=== PATIENT | female | born 1960 | race Caucasian/White ===

== ENCOUNTER → 2017-09-30 10:49 | Outpatient (CLI) | payer OTHER, SELFPAY ==
[2017-09-30 12:55] LABS: T4 Free Direct 1.33 ng/dL (0.76-1.46); Thyroid Stim Hormone (TSH) 0.37 uIU/mL (0.358-3.74)
== END ==
PROVIDERS: Family Provider Family Medicine; PCP Family Medicine
DX: E89.0 Postprocedural hypothyroidism (principal)
CPT/HCPCS: 36415; 84439; 84443

== ENCOUNTER 2017-10-01 13:30 | Outpatient (RCR) | payer OTHER, SELFPAY ==
--- NOTE | 2017-09-01 09:25 | HP.PTEVAL ---
Patient's Visit Information BOLIVAR ESCUDERO is a 57 year old F referred to Physical Therapy by DO SADIA Steen with a diagnosis of Right UKA. Date of Evaluation: 09/01/17 Physical Therapist: Catie Huerta - Visit Plan Frequency: 2x /Week Duration: 2 Weeks Plan: Manual, stretching and dry needling - Subjective Subjective: Right UKA at end of March- pain behind the knee- complained since surgery. Started to catch behind the knee- positional pain. Feels like its getting harder to uncatch and its remaining painful longer. Not exactly sure what the problem is. Some days are worse than others. Feels like something is under tension and then it snaps (you can hear it). So Dr. العراقي wants to her attempt dry needling and massage therapy. Her daughter worked on her hamstring and Gastroc/Soleus- it felt better for a little bit but came right back. Did heavy massage therapy for about 4 weeks and it felt great for a little bit but it came back. Agg: being up on it. Feels thick, inflammed and tired. Worst: 01/17 Best: 09/19 Eases: nothing. Is having a CT Scan on - thinks maybe the tray is to long. Is thinking possible revision. Sleep: not disturbed. PMHx: DM, PVC's, Menieres, Moderate Heart Disease. Meds: thyroid, tricor, cholesterol, Maxide, water pill, Toporol, XL, levamere - Objective Posture: FH, RS. Gait: no deviation noted. Stairs: asc/desc 8 recip but reports catching. HR/TR: WNL. Balance: 30 sec without LOB. Palpation: tender along hamstrings medial side, gastroc and solues. ROM: 0-125 degrees. Strength: Hip: 4/5, Knee: 5/5, Ankle: 5/5. Flexibility: Gastroc: mod, Soleus: mod, Hamstring: mod - Goals Goal 1:: Patient will be I with HEP and progression Goal Time Frame: 4-6 Weeks Goal 2:: Patient will demo slight restriction in hamstring/gastroc/soleus Goal Time Frame: 4-6 Weeks Goal 3:: Patient will report no catching of the knee for 1 week Goal Time Frame: 4-6 Weeks - Rehabilitation Potential Physical Therapy Diagnosis: patient presents with hypomobility- she has decreased strength and flexibility leading to increased pain with ADL's Rehabilitation Potential: Fair - Anticipated Interventions Patient/Client Instruction: Educate patient on: Benefits of Fitness Program For the Purpose of:: To increase tolerance to activity/condition/position Therapeutic Exercise to Include: Strength training, Flexibilty training, Passive ROM, Active ROM, Dynamic Lumbar Stabilization For the Purpose of:: To improve muscle performance and motor function Manual Therapy Techniques to Include: Functional dry needling, Soft tissue mobilization For the Purpose of:: To improve nutrient delivery to tissue Thank you for the opportunity to evaluate your patient. For Medicare and Medicare HMO plans, please review the plan of care and approve it. It will need to be FAXED BACK to us at [phone] for Medicare purposes. Please let me know if there are questions or concerns regarding this plan of care. Physician Signature: Date:
--- NOTE | 2018-03-08 13:16 | HP.PT.NRP ---
HP - Discharge Summary (1) - Patient Information BOLIVAR ESCUDERO was seen in my office for initial evaluation on 09/01/17. The following Plan of Care was established for this patient: Initial Frequency: 2x /Week Initial Duration: 2 Weeks - Anticipated Interventions Patient/Client Instruction: Educate patient on: Benefits of Fitness Program For the Purpose of:: To increase tolerance to activity/condition/position Therapeutic Exercise to Include: Strength training, Flexibilty training, Passive ROM, Active ROM, Dynamic Lumbar Stabilization For the Purpose of:: To improve muscle performance and motor function Manual Therapy Techniques to Include: Functional dry needling, Soft tissue mobilization For the Purpose of:: To improve nutrient delivery to tissue This patient was last seen in our office . Pertinent comments regarding their Physical therapy will appear below: Patient has not attended physical therapy in over 30 days and is appropriate for d/c- return to MD as needed. At this point I will be discontinuing this patient from physical therapy. I would be happy to see this patient again in the future if found appropriate by the physician. Thank you! Catie Huerta
== END 2017-10-01 19:00 | disposition home or self-care (01) ==
LOC: PT 13:30
PROVIDERS: Family Provider Family Medicine; PCP Family Medicine; Visit Provider Orthopaedic Surgery
DX: Z98.890 Other specified postprocedural states (principal)
CPT/HCPCS: 97140; 97161

== ENCOUNTER → 2017-11-06 14:06 | Outpatient (CLI) | payer OTHER, SELFPAY ==
[2017-11-06 16:17] LABS: AST(SGOT) 33 U/L (15-37); Alanine Aminotransfer ALT/SGPT 59 U/L (13-56); Albumin, Serum 3.7 g/dL (3.2-5.0); Alkaline Phosphatase 68 U/L (45-117); Globulin 3.6 g/dL (2.2-4.2); Lipase 550 U/L (73-393); Protein, Total 7.3 g/dL (6.4-8.2)
== END ==
PROVIDERS: Family Provider Family Medicine; PCP Family Medicine; Visit Provider Internal Medicine Gastroenterology
DX: K85.90 Acute pancreatitis without necrosis or infection, unspecified (principal)
CPT/HCPCS: 36415; 80076; 83690

== ENCOUNTER → 2017-11-13 17:42 | Outpatient (CLI) | payer OTHER, SELFPAY ==
[2017-11-13 13:20] LABS: AST(SGOT) 130 U/L (15-37); Alanine Aminotransfer ALT/SGPT 176 U/L (13-56); Albumin, Serum 3.7 g/dL (3.2-5.0); Alkaline Phosphatase 72 U/L (45-117); Bilirubin, Direct 0.18 mg/dL (0.00-0.30); Globulin 3.7 g/dL (2.2-4.2); Lipase 223 U/L (73-393); Protein, Total 7.4 g/dL (6.4-8.2)
--- NOTE | 2017-11-13 17:45 | CT_ITS ---
STUDY: CT ABDOMEN AND PELVIS WITH CONTRAST REASON FOR EXAM: Female, 57 years old. Pancreatitis RADIATION DOSAGE (If Supplied By Facility): CTDIvol = ( 15.44 ) mGy, DLP = ( 1154.32 ) mGycm TECHNIQUE: Transaxial images were obtained from the dome of the diaphragm to the symphysis pubis without oral contrast. 100 ml of Isovue 300 contrast was administered. Sagittal and coronal images were reconstructed. Individualized dose optimization techniques were used for this CT. COMPARISON: None. FINDINGS: The visualized lung bases are clear. The visualized portions of the heart and pericardium are within normal limits. The patient is status post cholecystectomy. The liver is within normal limits. There are no suspicious hepatic lesions. The spleen is enlarged, measuring 14.3 cm in maximal dimension. The pancreas is within normal limits. There is no peripancreatic fluid or fluid collection. The adrenal glands are within normal limits. There are no obstructing renal stones. There is no hydronephrosis. There are no focal renal lesions. Normal visualized stomach. There is no bowel obstruction or inflammation. There is a large mount of stool in the colon, consistent with constipation. The appendix is visualized and appears normal. The aorta is normal in caliber. There is no abdominal or pelvic free air, free fluid, fluid collection or lymphadenopathy. There are no destructive osseous lesions. CT/Abdomen/Pelvis WITH Contrast IMPRESSION: Splenomegaly. Normal appearance of the pancreas. No peripancreatic fluid or fluid collection. If concern for pancreatitis persists, correlation with laboratory lipase value is recommended. No bowel obstruction or inflammation. Normal appendix. Constipation. Electronically Signed: Niko Vinson, at 22:03 EDT Tel , Service support ,
== END ==
PROVIDERS: Family Provider Family Medicine; PCP Family Medicine; Visit Provider Internal Medicine Gastroenterology
DX: K85.90 Acute pancreatitis without necrosis or infection, unspecified (principal)
CPT/HCPCS: 36415; 74177; 80076; 83690; Q9967

== ENCOUNTER → 2017-12-24 14:48 | Outpatient (CLI) | payer OTHER, SELFPAY ==
[2017-12-24 16:28] LABS: AST(SGOT) 35 U/L (15-37); Alanine Aminotransfer ALT/SGPT 53 U/L (13-56); Albumin, Serum 4.1 g/dL (3.2-5.0); Alkaline Phosphatase 76 U/L (45-117); Bilirubin, Direct 0.12 mg/dL (0.00-0.30); Globulin 3.6 g/dL (2.2-4.2); Protein, Total 7.7 g/dL (6.4-8.2); Thyroid Stim Hormone (TSH) 0.33 uIU/mL (0.358-3.74)
== END ==
PROVIDERS: Family Provider Family Medicine; PCP Family Medicine; Visit Provider Family Medicine
DX: E03.9 Hypothyroidism, unspecified (principal); K86.1 Other chronic pancreatitis
CPT/HCPCS: 36415; 80076; 84436; 84443

== ENCOUNTER → 2018-02-25 09:05 | Outpatient (CLI) | payer OTHER, SELFPAY ==
[2018-02-25 10:30] LABS: Hemoglobin A1c 6.7 % (4.2-6.3)
[2018-02-25 10:40] LABS: T4 Free Direct 1.15 ng/dL (0.76-1.46); Thyroid Stim Hormone (TSH) 1.56 uIU/mL (0.358-3.74)
== END ==
PROVIDERS: Family Provider Family Medicine; PCP Family Medicine
DX: E11.9 Type 2 diabetes mellitus without complications (principal); E89.0 Postprocedural hypothyroidism
CPT/HCPCS: 36415; 83036; 84439; 84443

== ENCOUNTER 2018-04-03 15:28 | Emergency (ER) | payer OTHER, SELFPAY ==
[2018-04-03 15:29] VITALS: BP 143/78; PULSE 80; RESP 16; TEMP 36.8; O2SAT 98; BMI 28.1
--- NOTE | 2018-04-03 15:51 | ED.VISSUMM ---
- ER Visit Summary Date of Service: 04/03/18 Chief Complaint: Right leg cellulitis History of Present Illness: The patient is a 58 F increased redness right leg over 2 days. Status post revision of total right knee arthroplasty by Dr. Quiñonez in [place] 9 days ago. There is no redness at the incision or drainage. Patient admits to shaving her leg the day prior. states she felt some pain anteriorly before the redness. No calf pain. She is on anticoagulants of fondaparinux daily for DVT prophylaxis. Denies fever. She is a diabetic. She is also on Keflex postsurgery 4 times daily however stopped it the day prior due to side effects of nausea. Concerns of cellulitis today. Physical Examination: General: Alert and oriented ?3, no acute distress HEENT: Normocephalic, atraumatic. Moist mucosa membranes Neck: supple, nontender. Cardiovascular: Regular rate and rhythm, no murmurs Respiratory: Normal breath sounds, symmetric, no distress Abdomen: Soft, nontender, nondistended Extremities: Nontender, no edema, pulses intact ?4. Right knee: Incision clean, dry, intact with Dermabond on top. Neuro: no focal neurological deficits. Skin: 6 x 2 cm erythema anterior mid tibia, no induration or drainage. No tracking near the incision of the right knee. Test Results: [] Emergency Department Course and Treatment: Patient nontoxic, well-appearing. Exam concerns for early cellulitis the mid tibia. There is no surgical involvement. Patient's intolerance to antibiotics history, discussed will use doxycycline twice daily for coverage. She does have Zofran and Phenergan at home to use as needed. Erythema was outlined, signs and symptoms discussed return. All questions were answered. Treatment Plan: [] Disposition: Discharge Impression: Right leg cellulitis This note was generated with Dw[employer] dictation software. It may contain incorrect words, spelling, and punctuation that were not noted in review of the chart prior to signing ED Disposition - Plan for ED Patient: Disposition: Home or Assisted Living Chief Complaint: Lower Extremity Injury Diagnosis: Cellulitis of right lower leg Instructions: ED Infec Skin Cellulitis Prescriptions: Doxycycline Monohydrate 100 mg PO BID #20 capsule Referrals: Rohit Lawson MD [Primary Care Provider] - 3-5 Days
[2018-04-03] MEDS: Doxycycline 100 MG CAPSULE PO (15:55)
--- NOTE | 2018-04-03 16:10 | ED.RN ---
per MD informed pt to not take Keflex and to stop shaving legs.
== END 2018-04-03 16:13 | disposition home or self-care (01) ==
PROVIDERS: Emergency Provider Emergency Medicine; Family Provider Family Medicine; PCP Family Medicine
DX: L03.115 Cellulitis of right lower limb (principal); Z96.651 Presence of right artificial knee joint
CPT/HCPCS: 99283

== ENCOUNTER 2018-04-28 10:00 | Outpatient (RCR) | payer OTHER, SELFPAY ==
--- NOTE | 2018-03-30 11:06 | HP.PTEVAL_ITS ---
Patient's Visit Information BOLIVAR ESCUDERO is a 58 year old F referred to Physical Therapy by RODERICK RUSH with a diagnosis of R S/P knee revison arthroplasty. Date of Evaluation: 03/30/18 Physical Therapist: Amelia Doe - Visit Plan Frequency: 3x /Week Duration: 4 Weeks Plan: 3X/ week for 4 weeks for R knee AROM, PROM, gait training - Subjective Subjective: Mar 31, 2017 R partial Tkr and Auf 2017 was a revision to a total. She is walking with a can now for a couple of days. She walks at home without a cane a lot. By the end of the day she uses the walker around the house. She has stairs at home and goes down with bad and up with the good and has a railing. She is not having trouble up and down from chairs. She is not allowed to Drive until done with pain meds. She has not a whole lot of pain. She takes the oxy as needed and not taking it around the clock. She reports that something is making her sick to her stomach and so she stopped taking a lot of the meds. - Pain R knee pain Pain Intensity (Out of 10): 3 Pain Intensity Range: 4 Comment: up walking around - Objective Gait: walking into dept with straight cane with cane in the R hand....Worked on her to get can in the L hand so she is able to have less pressure on the R and more even gait pattern. R knee AROM: -1 degree from full extension to 101 degrees knee flexion. L knee AROM: -1 degree from full extension to 140 degrees knee flexion. R knee MMT: Able to SLR but fatigues by 7/10 and knee is bent. L Knee MMT: WFL. Stairs up and down recip with 2 hand rails with some hesitency descending stairs. Palpation: some pitting edema at the knee and at the ankle on the L. Patellar mobs: decreased motion but swelling present. Sit to stand: likes to kick L foot out to sit. Instructed pt to try and keep feet even when sitting and she is able to do so just fine. - Goals Goal 1:: I HEP Goal Time Frame: 4-6 Weeks Goal 2:: Increase R knee AROM 0- 120 degrees R knee flexion Goal Time Frame: 4-6 Weeks Goal 3:: Walk without an AD and without an antalgic gait Goal Time Frame: 4-6 Weeks Goal 4:: Up and down stairs recip with 1 hand rail without any hesitancy Goal Time Frame: 4-6 Weeks - Rehabilitation Potential Rehabilitation Potential: Good - Anticipated Interventions Patient/Client Instruction: Educate patient on: Condition, Plan of Care For the Purpose of:: To decrease pain, To decrease swelling/inflammation, To increase ROM, To improve nutrient delivery to tissue, To improve muscle performance and motor function, To improve ability to perform ADL's, To increase tolerance to activity/condition/position, To improve performance and independence with ADL's, To improve ability of physical actions for home/ community/work/leisure, To improve gait and locomotor functions, To improve health of tissue, To decrease soft tissue restriction, To increase flexibility/ ROM, To improve balance, To improve safety with gait Therapeutic Exercise to Include: Strength training, Balance training, Flexibilty training, Gait and locomotor training, Passive ROM, Active ROM For the Purpose of:: To decrease pain, To decrease swelling/inflammation, To increase ROM, To improve nutrient delivery to tissue, To increase oxygenation perfusion, To improve muscle performance and motor function, To improve ability to perform ADL's, To increase tolerance to activity/condition/position, To improve performance and independence with ADL's, To improve ability of physical actions for home/community/work/leisure, To improve gait and locomotor functions , To improve health of tissue, To decrease soft tissue restriction, To increase flexibility/ROM, To improve endurance, To improve balance, To improve safety with gait Functional Training to Include: Gait training For the Purpose of:: To improve gait and locomotor functions Manual Therapy Techniques to Include: Mobilization, Passive ROM, Soft tissue mobilization For the Purpose of:: To decrease swelling/inflammation, To increase ROM, To improve nutrient delivery to tissue, To improve ability to perform ADL's IF ES: Yes Cryotherapy (ice pack, ice massage): Yes Ultrasound (thermal/non thermal): Yes For the Purpose of:: To decrease pain, To decrease swelling/inflammation, To increase ROM, To improve nutrient delivery to tissue Thank you for the opportunity to evaluate your patient. For Medicare and Medicare HMO plans, please review the plan of care and approve it. It will need to be FAXED BACK to us at [phone] for Medicare purposes. Please let me know if there are questions or concerns regarding this plan of care. Physician Signature: Date:
--- NOTE | 2018-04-28 11:06 | HP.PTDCSUM ---
HP - PT D/C Summary It has been my pleasure to treat BOLIVAR ESCUDERO under orders from RODERICK RUSH, for the diagnosis of R S/P knee revison arthroplasty for a total of 13 visit(s). Discharge Date: 04/28/18 Please see the following information for a summary of their discharge status. - Subjective Subjective: Pt reports that today is her last day. She reports that she will be doing the $15 member ship here starting Thursday to keep up with stretching her knee, endurance etc. - Pain R knee pain Pain Intensity (Out of 10): 0 - Overall Improvement % Improvement: 80 - Objective Objective/Function: -1 degree from full extension on the R and 128 degrees R knee flexion. Stairs: up and down recip with no antalgic gait and without a hand rail. Sit to stand: able with no assistance of UE's. Gait: walks with a normal gait pattern with equal stance time on B LE's. Pt is I with exercises and will continue on own - Goals Goal 1:: I HEP Goal Progress: Goal Met Goal 2:: Increase R knee AROM 0- 120 degrees R knee flexion Goal Progress: Goal Met Goal 3:: Walk without an AD and without an antalgic gait Goal Progress: Goal Met Goal 4:: Up and down stairs recip with 1 hand rail without any hesitancy Goal Progress: Goal Met - Plan Plan: DC PT to 30 day membership to continue with exercises. - D/C Information Discharge Comments: DC PT to I exercise If there are questions or concerns regarding this patient's physical therapy, please feel free to call me at [phone]. Thank you for the referral of this patient. Sincerely, Amelia Doe
== END 2018-04-28 17:26 | disposition home or self-care (01) ==
LOC: PT 10:00
PROVIDERS: Family Provider Family Medicine; PCP Family Medicine
DX: Z98.890 Other specified postprocedural states (principal)
CPT/HCPCS: 97110; 97161

== ENCOUNTER → 2018-07-19 09:58 | Outpatient (CLI) | payer OTHER, SELFPAY ==
[2018-07-19 12:38] LABS: Hemoglobin A1c 6.7 % (4.2-6.3)
[2018-07-19 12:46] LABS: Thyroid Stim Hormone (TSH) 2.56 uIU/mL (0.358-3.74)
== END ==
PROVIDERS: Family Provider Family Medicine; PCP Family Medicine
DX: E11.9 Type 2 diabetes mellitus without complications (principal); E89.0 Postprocedural hypothyroidism
CPT/HCPCS: 36415; 83036; 84443

== ENCOUNTER → 2018-11-02 07:13 | Outpatient (CLI) | payer OTHER, SELFPAY ==
[2018-11-02 10:32] LABS: AST(SGOT) 26 U/L (15-37); Alanine Aminotransfer ALT/SGPT 39 U/L (13-56); Albumin, Serum 3.9 g/dL (3.2-5.0); Alkaline Phosphatase 58 U/L (45-117); Anion Gap 6 (5-15); BUN 18 mg/dL (7-18); BUN/Creat Ratio 17.3 RATIO (10-20); Calcium,Total 8.9 mg/dL (8.5-10.1); Chloride 107 mmol/L (98-107); Cholesterol 208 mg/dL (200); Creatinine, Serum 1.04 mg/dL (0.55-1.02); EST Glomerular Filtration Rate 57 mL/min (>60); Est Glom Filt Rate - Afr Amer 69 mL/min (>60); Globulin 3.8 g/dL (2.2-4.2); Glucose 127 mg/dL (74-106); High Density Lipoprotein 36 mg/dL; Potassium 3.6 mmol/L (3.5-5.1); Protein, Total 7.7 g/dL (6.4-8.2); Sodium Level 141 mmol/L (136-145); Thyroid Stim Hormone (TSH) 3.56 uIU/mL (0.358-3.74); Triglycerides 174 mg/dL; Very Low Density Lipoprotein 35 mg/dL (5-40)
[2018-11-02 10:39] LABS: Hemoglobin A1c 6.2 % (4.2-6.3)
== END ==
PROVIDERS: Family Provider Family Medicine; PCP Family Medicine
DX: E11.9 Type 2 diabetes mellitus without complications (principal); E78.5 Hyperlipidemia, unspecified; E89.0 Postprocedural hypothyroidism
CPT/HCPCS: 36415; 80053; 80061; 83036; 84439; 84443

== ENCOUNTER → 2018-12-24 | Outpatient (CLI) | payer OTHER, SELFPAY ==
--- NOTE | 2018-12-24 17:37 | MRI_ITS ---
STUDY: MRI LUMBAR SPINE WITHOUT CONTRAST REASON FOR EXAM: Female, 58 years old. Leg and back pain for 10 years TECHNIQUE: Standardized fat and water weighted pulse sequences were obtained in the sagittal and axial planes. COMPARISON: None FINDINGS: T12-L1: Normal endplates. Normal disc height, hydration and morphology. Normal bilateral facet joints. Normal central canal and bilateral lateral recesses. Normal bilateral intervertebral neural foramina. Normal lumbar lordosis. There is no substantial scoliosis. Normal conus medullaris that terminates at the L1-2 level. L1-2: Bulging annulus and bilateral facet hypertrophy with mild central canal stenosis. L2-3: Bulging annulus and bilateral facet hypertrophy with mild left lateral recess stenosis. L3-4: Bulging annulus and bilateral facet hypertrophy and ligamentum flavum hypertrophy with mild central canal and moderate right and mild left foraminal stenoses. L4-5: Bulging annulus and bilateral facet hypertrophy with moderate left and mild right foraminal stenoses. L5-S1: Left foraminal disc protrusion and left facet hypertrophy with mild left foraminal stenosis. Normal visualized sacral ala. Normal visualized paraspinous soft tissue structures. MRI/Spine Lumbar (Routine) IMPRESSION: Multilevel degenerative disease as described. Moderate foraminal stenoses on the right at L3-4 and on the left at L4-5. Electronically Signed: Francisco Jain MD at 22:09 EDT Tel , Service support ,
== END | disposition home or self-care (01) ==
LOC: MRI 17:03
PROVIDERS: Family Provider Family Medicine; PCP Family Medicine
DX: M54.16 Radiculopathy, lumbar region (principal)
CPT/HCPCS: 72148

== ENCOUNTER → 2019-02-08 | Outpatient (CLI) | payer OTHER, SELFPAY ==
[2019-02-08 10:41] LABS: Hemoglobin A1c 5.9 % (4.2-6.3)
[2019-02-08 10:53] LABS: AST(SGOT) 16 U/L (15-37); Alanine Aminotransfer ALT/SGPT 25 U/L (13-56); Albumin, Serum 3.9 g/dL (3.2-5.0); Alkaline Phosphatase 60 U/L (45-117); Anion Gap 9 (5-15); BUN 26 mg/dL (7-18); BUN/Creat Ratio 24.3 RATIO (10-20); Calcium,Total 9.2 mg/dL (8.5-10.1); Chloride 105 mmol/L (98-107); Creatinine, Serum 1.07 mg/dL (0.55-1.02); EST Glomerular Filtration Rate 55 mL/min (>60); Est Glom Filt Rate - Afr Amer 67 mL/min (>60); Globulin 3.8 g/dL (2.2-4.2); Glucose 98 mg/dL (74-106); Potassium 3.7 mmol/L (3.5-5.1); Protein, Total 7.7 g/dL (6.4-8.2); Sodium Level 143 mmol/L (136-145); Thyroid Stim Hormone (TSH) 3.17 uIU/mL (0.358-3.74)
== END | disposition home or self-care (01) ==
LOC: MTLAB 07:22
PROVIDERS: Family Provider Family Medicine; PCP Family Medicine
DX: E11.9 Type 2 diabetes mellitus without complications (principal); E89.0 Postprocedural hypothyroidism
CPT/HCPCS: 36415; 80053; 83036; 84443

== ENCOUNTER → 2019-06-06 | Outpatient (CLI) | payer OTHER, SELFPAY ==
[2019-06-06 10:25] LABS: Hemoglobin A1c 5.8 % (4.2-6.3)
[2019-06-06 10:27] LABS: ALB/GLOB Ratio 1.1 RATIO (0.9-2.4); AST(SGOT) 20 U/L (15-37); Alanine Aminotransfer ALT/SGPT 38 U/L (13-56); Albumin, Serum 3.9 g/dL (3.2-5.0); Alkaline Phosphatase 59 U/L (45-117); Anion Gap 6 (5-15); BUN 24 mg/dL (7-18); BUN/Creat Ratio 23.8 RATIO (10-20); Chloride 108 mmol/L (98-107); Creatinine, Serum 1.01 mg/dL (0.55-1.02); EST Glomerular Filtration Rate 59 mL/min (>60); Est Glom Filt Rate - Afr Amer 72 mL/min (>60); Globulin 3.5 g/dL (2.2-4.2); Glucose 127 mg/dL (74-106); Microalbumin,Random Urine 9.8 mg/L (NO RANGE EST.); Potassium 3.6 mmol/L (3.5-5.1); Protein, Total 7.4 g/dL (6.4-8.2); Sodium Level 142 mmol/L (136-145); T4 Free Direct 1.23 ng/dL (0.76-1.46); Thyroid Stim Hormone (TSH) 1.83 uIU/mL (0.358-3.74)
== END | disposition home or self-care (01) ==
PROVIDERS: Family Provider Family Medicine; PCP Family Medicine
DX: E11.9 Type 2 diabetes mellitus without complications (principal); E89.0 Postprocedural hypothyroidism
CPT/HCPCS: 36415; 80053; 82043; 83036; 84439; 84443

== ENCOUNTER → 2019-06-21 | Outpatient (CLI) | payer OTHER, SELFPAY ==
--- NOTE | 2019-06-21 10:13 | NM_ITS ---
CLINICAL: 59-year-old diabetic female with reported history of early satiety. SEMI-SOLID PHASE 99m Tc SULFUR COLLOID GASTRIC EMPTYING STUDY COMPARISON: None available FINDINGS: The patient was administered 1.1 mCi of 99m Tc sulfur colloid mixed with oatmeal and consumed per os. Image acquisitions in the anterior-posterior projections for a total of 60 minutes. There is prompt visualization of the stomach. There is no gastroesophageal reflux identified. The T1/2 linear fit was calculated to be 39.4 minutes, (Normal: 12-56 minutes). NM/Gastric Emptying Study IMPRESSION: 1. NORMAL 99m Tc sulfur colloid semi-solid phase (oatmeal) gastric emptying imaging examination. A. There is normal and preserved semi-solid phase gastric emptying compared to normal controls. (Lucho et al, J Nucl Med Tech 38: 186, 2010). Electronically Signed: Memo Hawthorne DO at 23:34 EST Tel , Service support ,
== END | disposition home or self-care (01) ==
LOC: NM 10:11
PROVIDERS: Family Provider Family Medicine; PCP Family Medicine; Referring Provider Family Medicine; Visit Provider Family Medicine
DX: R68.81 Early satiety (principal)
CPT/HCPCS: 78264; A9541

== ENCOUNTER → 2019-08-19 08:06 | Outpatient (CLI) | payer OTHER, SELFPAY | PROVIDERS: Family Provider Family Medicine; PCP Family Medicine; Referring Provider Internal Medicine Gastroenterology; Visit Provider Internal Medicine Gastroenterology | DX: K59.9 Functional intestinal disorder, unspecified (principal); K86.89 Other specified diseases of pancreas ==

== ENCOUNTER → 2019-09-26 | Outpatient (CLI) | payer OTHER, SELFPAY ==
[2019-09-26 10:36] LABS: ALB/GLOB Ratio 0.9 RATIO (0.9-2.4); AST(SGOT) 22 U/L (15-37); Alanine Aminotransfer ALT/SGPT 47 U/L (13-56); Albumin, Serum 3.6 g/dL (3.2-5.0); Alkaline Phosphatase 62 U/L (45-117); Anion Gap 6 (5-15); BUN 20 mg/dL (7-18); BUN/Creat Ratio 17.7 RATIO (10-20); Calcium,Total 9.3 mg/dL (8.5-10.1); Chloride 107 mmol/L (98-107); Cholesterol 182 mg/dL (200); Creatinine, Serum 1.13 mg/dL (0.55-1.02); EST Glomerular Filtration Rate 52 mL/min (>60); Est Glom Filt Rate - Afr Amer 63 mL/min (>60); Globulin 3.8 g/dL (2.2-4.2); Glucose 159 mg/dL (74-106); High Density Lipoprotein 33 mg/dL; Potassium 3.8 mmol/L (3.5-5.1); Protein, Total 7.4 g/dL (6.4-8.2); Sodium Level 141 mmol/L (136-145); Thyroid Stim Hormone (TSH) 0.93 uIU/mL (0.358-3.74); Triglycerides 180 mg/dL; Very Low Density Lipoprotein 36 mg/dL (5-40)
[2019-09-26 10:37] LABS: Hemoglobin A1c 6.5 % (4.2-6.3)
[2019-09-26 10:58] LABS: Microalbumin,Random Urine 6.6 mg/L (NO RANGE EST.)
[2019-09-27 16:08] LABS: Endomysial Antibody IgA Negative (Negative)
[2019-09-27 17:25] LABS: Immunoglobulin A 188 mg/dL (87-352); t-Transglutaminase IgA <2 U/mL (0-3)
== END | disposition home or self-care (01) ==
LOC: MTLAB 07:39
PROVIDERS: PCP Family Medicine; Referring Provider Internal Medicine Gastroenterology; Visit Provider Internal Medicine Gastroenterology
DX: K59.9 Functional intestinal disorder, unspecified (principal); E78.5 Hyperlipidemia, unspecified; E89.0 Postprocedural hypothyroidism; E11.9 Type 2 diabetes mellitus without complications
CPT/HCPCS: 36415; 80053; 80061; 82043; 82784; 83036; 83516; 84443; 86255

== ENCOUNTER → 2020-01-20 | Outpatient (CLI) | payer OTHER, SELFPAY ==
[2020-01-20 10:31] LABS: AST(SGOT) 25 U/L (15-37); Alanine Aminotransfer ALT/SGPT 43 U/L (13-56); Albumin, Serum 3.9 g/dL (3.2-5.0); Alkaline Phosphatase 56 U/L (45-117); Anion Gap 7 (5-15); BUN 21 mg/dL (7-18); BUN/Creat Ratio 20.2 RATIO (10-20); Calcium,Total 9.4 mg/dL (8.5-10.1); Chloride 104 mmol/L (98-107); Creatinine, Serum 1.04 mg/dL (0.55-1.02); EST Glomerular Filtration Rate 57 mL/min (>60); Est Glom Filt Rate - Afr Amer 69 mL/min (>60); Globulin 3.8 g/dL (2.2-4.2); Glucose 140 mg/dL (74-106); Potassium 3.6 mmol/L (3.5-5.1); Protein, Total 7.7 g/dL (6.4-8.2); Sodium Level 141 mmol/L (136-145)
[2020-01-20 10:36] LABS: Hemoglobin A1c 6.1 % (3.8-5.6)
== END | disposition home or self-care (01) ==
LOC: MTLAB 07:43
PROVIDERS: PCP Family Medicine
DX: E11.9 Type 2 diabetes mellitus without complications (principal); Z79.4 Long term (current) use of insulin
CPT/HCPCS: 36415; 80053; 83036

== ENCOUNTER → 2020-02-09 | Outpatient (CLI) | payer OTHER, SELFPAY ==
--- NOTE | 2020-02-09 13:25 | RAD_ITS ---
STUDY: X-RAY - CERVICAL SPINE REASON FOR EXAM: Female, 60 years old. neck pain, cervicalgia, Hx surgery 12 years ago TECHNIQUE: 3 view(s) of the cervical spine were obtained. COMPARISON: None FINDINGS: Normal anterior atlantoaxial articulation. Normal odontoid process. There is straightening of the normal cervical lordosis. Normal cervical alignment. No fracture or subluxation. Vertebral body heights are well-maintained. Mild disc space narrowing at C4-5. Status post anterior cervical discectomy and fusion C5-C7. C5-6 fusion appears mature. C6-7 fusion is incomplete. Disc spaces are otherwise unremarkable. Facet and uncinate hypertrophy is noted at C2-3, C3-4 and C4-5. The soft tissue structures are unremarkable. RAD/Cerv Spine 2 or 3 Views IMPRESSION: 1. No acute findings. 2. Postsurgical and mild degenerative changes of the cervical spine as noted above. Electronically Signed: Adriana Douglas MD at 23:59 EDT Tel , Service support ,
== END | disposition home or self-care (01) ==
LOC: MTRAD 13:24
PROVIDERS: PCP Family Medicine; Referring Provider Family Medicine; Visit Provider Family Medicine
DX: M54.2 Cervicalgia (principal)
CPT/HCPCS: 72040

== ENCOUNTER → 2020-05-01 | Outpatient (CLI) | payer OTHER, SELFPAY ==
--- NOTE | 2020-05-01 10:27 | MRI_ITS ---
STUDY: MRA NECK WITH AND WITHOUT CONTRAST REASON FOR EXAM: Female, 60 years old. thoracic outlet syndrome, C/O R NECK/SHOULDER PAIN , H/O ARTHRITIS TECHNIQUE: 3-D [id number] (TOF) imaging was performed in an 1.5 T MRI scanner. DOTAREM IV 19CC was administered for the contrast enhanced images. COMPARISON: None. FINDINGS: RIGHT CAROTID ARTERIES: Normal right common carotid artery (CCA). There is moderate atherosclerotic plaque formation with moderate narrowing of the carotid bulb. There is moderate atherosclerotic plaque formation of the origin of the right internal carotid artery with an estimated stenosis of 50-69% stenosis. Normal visualized cervical portion of the right internal carotid artery. Normal origin of the right external carotid artery (ECA). LEFT CAROTID ARTERIES: Normal left common carotid artery (CCA). There is mild atherosclerotic plaque formation with minimal narrowing of the left carotid bulb. There is mild atherosclerotic plaque formation of the origin of the left internal carotid artery with less than 50% cross sectional diameter stenosis. Normal visualized cervical portion of the left internal carotid artery. Normal origin of the left external carotid artery (ECA). VERTEBRAL ARTERIES: Normal antegrade flow within the bilateral vertebral artery without a hemodynamically significant stenosis. MRI/MRA Neck WITH and W/O Contrast IMPRESSION: 1. Moderate (60%) right carotid stenosis. 2. Mild (20%) left carotid stenosis. 3. Patent vertebral arteries bilaterally. Electronically Signed: Memo Sewell MD at 16:59 EDT Tel , Service support ,
--- NOTE | 2020-05-01 10:27 | MRI_ITS ---
STUDY: MRI RIGHT BRACHIAL PLEXUS WITH AND WITHOUT CONTRAST REASON FOR EXAM: Female, 60 years old. R shoulder pain, h/o arthritis, thoracic outlet syndrome, C/O R NECK/SHOULDER PAIN , H/O ARTHRITIS TECHNIQUE: Standardized fat and water weighted pulse sequences were obtained in all 3 orthogonal planes, pre-and post contrast administration. IV 19 cc dotarem was administered for the contrast portion of the examination. COMPARISON: None. FINDINGS: No demonstrated abnormality in the course of the roots, trunks, divisions or cords of the brachial plexus. There is no demonstrated neural enlargement, neural edema or enhancement of the brachial plexus. Normal visualized subclavian artery and vein. Normal muscles of the rotator cuff. The visualized shoulder is normal. Normal pulmonary apex. MRI/Upper Ext No Joint W/WO Cont IMPRESSION: Normal unenhanced and enhanced MRI of the brachial plexus. Electronically Signed: Memo eSwell MD at 14:23 EDT Tel , Service support ,
[2020-05-01 13:01] LABS: CREATININE FINGERSTICK 0.8 mg/dL (0.55-1.02); EGFR FINGERSTICK > 60.0000 mL/min (>60)
== END | disposition home or self-care (01) ==
LOC: MRI 10:09
PROVIDERS: PCP Family Medicine; Referring Provider Family Medicine; Visit Provider Family Medicine
DX: G54.0 Brachial plexus disorders (principal)
CPT/HCPCS: 70549; 73220; A9575; A4216

== ENCOUNTER → 2020-06-02 | Outpatient (CLI) | payer OTHER, SELFPAY ==
[2020-06-02 08:24] LABS: Microalbumin,Random Urine 13.3 mg/L (NO RANGE EST.); Microalbumin:Creatinine Ratio 8.9 mg/g CRE (<30 mg/g CRE)
[2020-06-02 09:24] LABS: AST(SGOT) 12 U/L (15-37); Alanine Aminotransfer ALT/SGPT 38 U/L (13-56); Albumin, Serum 3.9 g/dL (3.2-5.0); Alkaline Phosphatase 59 U/L (45-117); Anion Gap 7 (5-15); BUN 24 mg/dL (7-18); Calcium,Total 9.3 mg/dL (8.5-10.1); Chloride 104 mmol/L (98-107); Cholesterol 198 mg/dL (200); EST Glomerular Filtration Rate 60 mL/min (>60); Est Glom Filt Rate - Afr Amer 72 mL/min (>60); Globulin 4.1 g/dL (2.2-4.2); Glucose 129 mg/dL (74-106); High Density Lipoprotein 54 mg/dL; Potassium 3.6 mmol/L (3.5-5.1); Sodium Level 140 mmol/L (136-145); Thyroid Stim Hormone (TSH) 0.85 uIU/mL (0.358-3.74); Triglycerides 103 mg/dL; Very Low Density Lipoprotein 21 mg/dL (5-40)
[2020-06-02 11:44] LABS: Hemoglobin A1c 6.1 % (3.8-5.6)
== END | disposition home or self-care (01) ==
LOC: LAB 07:11
PROVIDERS: PCP Family Medicine
DX: E11.9 Type 2 diabetes mellitus without complications (principal); E89.0 Postprocedural hypothyroidism; E78.5 Hyperlipidemia, unspecified; Z79.4 Long term (current) use of insulin
CPT/HCPCS: 36415; 80053; 80061; 82043; 82570; 83036; 84439; 84443

== ENCOUNTER 2020-07-18 14:25 | Outpatient (RCR) | payer OTHER, SELFPAY ==
[2020-07-18 18:00] LABS: Amylase 26 U/L (25-115); Lipase 133 U/L (73-393)
== END 2020-07-18 18:00 | disposition home or self-care (01) ==
LOC: MTLAB 14:25
PROVIDERS: PCP Family Medicine; Referring Provider Internal Medicine Gastroenterology; Visit Provider Internal Medicine Gastroenterology
DX: K86.1 Other chronic pancreatitis (principal)
CPT/HCPCS: 36415; 82150; 83690

== ENCOUNTER → 2020-09-12 13:40 | Outpatient (CLI) | payer OTHER, SELFPAY ==
--- NOTE | 2020-09-12 13:50 | MRI_ITS ---
STUDY: MRI BRAIN WITHOUT CONTRAST REASON FOR EXAM: Female, 60 years old. migraine with aura,vision changes TECHNIQUE: Standardized multiplanar fat and water weighted pulse sequences were obtained. COMPARISON: None. FINDINGS: Normal size of the ventricles and extra-axial spaces for the patient''s age. Normal white matter tracts of the supratentorial brain. There is no evidence for recent intracranial ischemia or other cause of cytotoxic edema on diffusion weighted imaging (DWI). Normal T2* images of the brain without demonstrated susceptibility artifact. There is no demonstrated hemosiderin stain. Normal bilateral basal ganglia. Normal thalami. There is no extra-axial fluid accumulation. Normal flow voids within the major intracranial circulation suggesting patency by spin echo criteria. Normal sella turcica, pituitary gland, infundibular stalk, optic chiasm and hypothalamus. Normal tectal plate and pineal gland. Normal midbrain, srikanth and medulla. Normal cerebellum. Normal basal cisterns. Normal bilateral temporal bones. Normal bilateral internal auditory canals. No demonstrated orbital abnormality, within the constraints of a routine brain study. Normal visualized paranasal sinuses. Normal calvarium and skull base. Normal visualized soft tissue structures. Normal visualized upper cervical spine. MRI/Brain without Contrast IMPRESSION: Normal unenhanced MRI of the brain. Electronically Signed: Memo Sewell MD at 14:54 EST Tel , Service support ,
[2020-09-12 14:26] LABS: CREATININE FINGERSTICK 1.3 mg/dL (0.55-1.02)
== END ==
PROVIDERS: PCP Family Medicine; Referring Provider Family Medicine; Visit Provider Family Medicine
DX: G43.109 Migraine with aura, not intractable, without status migrainosus (principal)
CPT/HCPCS: 70551

== ENCOUNTER 2020-10-25 14:22 | Outpatient (RCR) | payer OTHER, SELFPAY ==
[2020-10-25] MEDS: COVID-19 VACC, MRNA(PFIZER)/PF 30 MCG/0.3 ML SYRINGE IM (07:50)
[2020-11-15] MEDS: COVID-19 VACC, MRNA(PFIZER)/PF 30 MCG/0.3 ML SYRINGE IM (08:00)
== END 2020-10-25 23:59 ==
LOC: IMMUN 14:22
PROVIDERS: PCP Family Medicine; Visit Provider Family Medicine
DX: Z23 Encounter for immunization (principal)
CPT/HCPCS: 0001A; 0002A; 91300

== ENCOUNTER → 2020-10-26 14:14 | Outpatient (CLI) | payer OTHER, SELFPAY ==
--- NOTE | 2020-10-26 14:17 | RAD_ITS ---
INDICATION: abd pain, chronic pancreatitis EXAMINATION/TECHNIQUE: X-RAY - XR Abdomen 1 View COMPARISON: None FINDINGS: BOWEL GAS PATTERN: Non-obstructive. No bowel or stomach distention. FREE AIR: Not assessed on a single supine view. ORGANOMEGALY: Not seen. CALCIFICATIONS: No abnormal calcifications observed. LOWER CHEST: No acute pathology. BONES AND SOFT TISSUES: Status post cholecystectomy. Mild levoscoliosis lumbar spine. RAD/Abdomen Single View IMPRESSION: Non-obstructive bowel gas pattern. Electronically Signed: Memo Sewell MD at 13:54 EDT Tel , Service support ,
== END ==
PROVIDERS: PCP Family Medicine; Referring Provider Internal Medicine Gastroenterology; Visit Provider Internal Medicine Gastroenterology
DX: K86.1 Other chronic pancreatitis (principal); R10.9 Unspecified abdominal pain
CPT/HCPCS: 74018

== ENCOUNTER → 2020-10-31 07:07 | Outpatient (CLI) | payer OTHER, SELFPAY ==
[2020-10-31 10:45] LABS: PTHIN 19.5 pg/mL (18.4-80.1)
[2020-10-31 10:49] LABS: Vitamin D,25 Hydroxy 52.8 ng/mL
[2020-10-31 10:53] LABS: Hemoglobin A1c 6.1 % (3.8-5.6)
[2020-10-31 11:00] LABS: ALB/GLOB Ratio 1.1 RATIO (0.9-2.4); AST(SGOT) 22 U/L (15-37); Alanine Aminotransfer ALT/SGPT 43 U/L (13-56); Albumin, Serum 3.7 g/dL (3.2-5.0); Alkaline Phosphatase 58 U/L (45-117); Anion Gap 6 (5-15); BUN 24 mg/dL (7-18); BUN/Creat Ratio 21.8 RATIO (10-20); Calcium,Total 9.7 mg/dL (8.5-10.1); Chloride 104 mmol/L (98-107); Cholesterol 155 mg/dL (200); EST Glomerular Filtration Rate 53 mL/min (>60); Est Glom Filt Rate - Afr Amer 65 mL/min (>60); Globulin 3.5 g/dL (2.2-4.2); Glucose 143 mg/dL (74-106); High Density Lipoprotein 32 mg/dL; Potassium 3.9 mmol/L (3.5-5.1); Protein, Total 7.2 g/dL (6.4-8.2); Sodium Level 139 mmol/L (136-145); T4 Free Direct 1.44 ng/dL (0.76-1.46); Thyroid Stim Hormone (TSH) 1.21 uIU/mL (0.358-3.74); Triglycerides 169 mg/dL; Very Low Density Lipoprotein 34 mg/dL (5-40)
== END ==
PROVIDERS: PCP Family Medicine
DX: E11.9 Type 2 diabetes mellitus without complications (principal)
CPT/HCPCS: 36415; 80053; 80061; 82306; 83036; 83970; 84439; 84443

== ENCOUNTER 2021-01-22 21:04 | Emergency (ER) | payer OTHER, SELFPAY ==
[2021-01-22 14:56] VITALS: BMI 29.1
[2021-01-22 21:06] VITALS: BP 158/80; PULSE 67; RESP 18; TEMP 36.3; O2SAT 98; BMI 29.7
[2021-01-22 21:40] VITALS: BP 158/80; PULSE 67; RESP 18; TEMP 36.3; O2SAT 98
--- NOTE | 2021-01-22 22:40 | EX.ED.DYSGE1 ---
HPI History of Present Illness Chief Complaint: Complaint Informant: patient Narrative Narrative: Patient is a 60-year-old female with a past medical history of diabetes who presents to the emergency department for back pain, abdominal pain. She had chills earlier today. She was diagnosed with a UTI at an urgent care. They said if her symptoms get worse to go to the emergency department. She was placed on nitrofurantoin. She states that she is been having urinary frequency over the past week or so. She has never had a UTI and before in the past and thought that this was just related to her diabetes. She had a low-grade fever. Her symptoms are resolving on arrival to the ED. She denies any significant back pain or abdominal pain now. She denies any chest pain or shortness of breath. No cough. [facility] Medical History (Updated 01/22/21 @ 23:[address] Guevara Mcdermott, ) Arthritis Chronic neck and back pain Diabetes Fatigue Hemorrhoids Shoulder pain Thyroid disease Home Medications metoprolol succinate 100 mg PO DAILY 06/07/16 [History Last Taken 03/31/17 05:00] triamterene-hydrochlorothiazid 1 tab PO DAILY 06/07/16 [History Last Taken 06/07/16] fenofibrate nanocrystallized 145 mg PO QHS 03/24/17 [History Last Taken Unknown] levothyroxine 137 mcg tablet 150 mcg PO DAILY tab 07/29/17 [History Last Taken Unknown] cholecalciferol (vitamin D3) 50 mcg (2,000 unit) capsule 50 mcg PO DAILY 01/18/21 [History Last Taken Unknown] insulin detemir U-100 100 unit/mL (3 mL) subcutaneous pen 44 unit SC QHS ml 01/18/21 [History Last Taken Unknown] magnesium oxide 500 mg PO DAILY tab 01/18/21 [History Last Taken Unknown] potassium 99 mg tablet 99 mg PO DAILY tab 01/18/21 [History Last Taken Unknown] repaglinide 2 mg tablet 2 mg PO DIRECTED tab 01/18/21 [History Last Taken Unknown] cephalexin 500 mg PO BID 10 Days #20 cap 01/22/21 [Rx Last Taken Unknown] Allergy/AdvReac Type Severity Reaction Status Date / Time prednisone Allergy PREDNISONE Verified 01/22/21 21:06 INDUCED HYPERGLYCEMIA tramadol AdvReac Mild Vomiting Verified 01/22/21 21:06 erythromycin base AdvReac Vomiting Verified 01/22/21 21:06 Family History Mother Heart disease Father Heart disease Surgical History H/O total knee replacement H/O: hysterectomy S/P cervical spinal fusion S/P cholecystectomy s/p parathyroid S/P revision of total knee S/P right unicompartmental knee replacement S/P total knee arthroplasty Social History household members: spouse housing: house Smoking Status: Never smoker alcohol intake: never what type of physical activity do you participate in: none do you feel safe at home: Yes ROS ROS ED Constitutional Constitutional ED: Reports chills Eyes Eyes: Denies change in vision ENT ENT ED: Denies epistaxis or rhinorrhea Cardiovascular Cardiovascular: Denies chest pain or palpitations Respiratory/Chest Respiratory/Chest: Denies cough, dyspnea or dyspnea on exertion Gastrointestinal Gastrointestinal: Reports abdominal pain; Denies diarrhea, nausea or vomiting Genitourinary Genitourinary ED: Reports flank pain and urinary frequency; Denies dysuria or hematuria Musculoskeletal Musculoskeletal: Denies neck pain Integumentary Denies rash Neurologic Neurologic: Denies dizziness, headache(s) or weakness EXAM Physical Exam Const Vital Signs: 01/22/21 21:06 01/22/21 21:40 01/22/21 22:45 Temperature 97.4 F L 97.4 F L 98.6 F Temperature Source Temporal Temporal Oral Pulse Rate 67 67 67 Respiratory Rate 18 18 16 Blood Pressure 158/80 H 158/80 H 128/62 H Blood Pressure Mean 106 106 84 Pulse Ox 98 98 97 Oxygen Delivery Method Room Air Room Air Room Air 01/22/21 23:01 01/22/21 23:08 01/22/21 23:34 Temperature 98.2 F Temperature Source Oral Pulse Rate 70 Respiratory Rate 16 16 16 Blood Pressure 125/61 H Blood Pressure Mean 82 Pulse Ox 99 Oxygen Delivery Method Room Air Positive well nourished and well developed General Appearance ED: well developed and NAD HEENT Reports normocephalic, head/scalp atraumatic and moist mucous membranes Eyes PERRL and EOMs intact bilaterally Neck supple Resp normal respiratory effort and clear to auscultation bilaterally Auscultation: Negative for rales, rhonchi or wheezes Cardio regular rate, regular rhythm and no murmurs GI normal to inspection, nondistended, normoactive bowel sounds and non-tender Palpation: soft; Negative for guarding or rebound tenderness present Back/Spine no CVA tenderness Extremity normal to inspection General Extremety ED: Negative for tenderness Neuro CN's II-XII intact bilaterally and no sensory deficits noted Sensorium / Orientation: alert Motor Exam: strength 5/5 throughout Psych mental status grossly normal Skin no rashes or lesions noted MDM MDM MDM Narrative Medical decision making narrative: Patient presents to the emergency department for back pain abdominal pain, chills. She was diagnosed with a UTI earlier today. Upon arrival to the emerge department she is afebrile. She is not tachycardic. She is in no acute distress. She feels like most of her symptoms are alleviated at this time. With the back pain and chills I will switch her nitrofurantoin to Keflex to treat prolonged in case this develops into a pyelonephritis. I did tell her that we will check basic lab work as she is a diabetic. We will evaluate her glucose as well as her kidney function. She is given a first dose of Rocephin here in the ED. Patient's lab work showed a upper limit of normal white blood cell count, creatinine at 1.18. Her glucose is at 156. Otherwise no significant acute abnormality. She has remained stable throughout ED stay. At this time I do feel she is stable for discharge. Low concern for sepsis. No acute evidence of pyelonephritis but her symptoms are progressive getting worse so we will treat her with Keflex as opposed to the nitrofurantoin. Urine culture was obtained at the urgent care for the patient. At this time she is discharged home in stable condition. She is to follow-up with her PCP. Return precautions are reviewed. She understands and is agreeable with this plan. Lab Data Labs: Laboratory Results - last 24 hr 01/22/21 01/22/21 22:43 22:43 WBC 11.1 H RBC 4.52 Hgb 13.8 Hct 40.8 MCV 90.3 MCH 30.5 MCHC 33.8 RDW Std Deviation 48.6 H RDW Coeff of Robert 14.7 H Plt Count 194 MPV 11.4 Immature Gran % (Auto) 0.600 Neut % (Auto) 79.9 H Lymph % (Auto) 8.8 L Bonner % (Auto) 9.3 Eos % (Auto) 1.1 Baso % (Auto) 0.3 Absolute Neuts (auto) 8.9 H Absolute Lymphs (auto) 0.98 Nucleated RBC % 0 Sodium 138 Potassium 3.5 Chloride 103 Carbon Dioxide 26.0 Anion Gap 9 BUN 21 H Creatinine 1.18 H Estim Creat Clear Calc 55.25 Est GFR (MDRD) Af Amer 60 Est GFR (MDRD) Non-Af 49 L BUN/Creatinine Ratio 17.8 Glucose 156 H Calcium 9.7 Total Bilirubin 0.70 AST 17 ALT 37 Alkaline Phosphatase 70 Total Protein 7.9 Albumin 3.9 Globulin 4.0 Albumin/Globulin Ratio 1.0 Lipase 126 Discharge Plan Triage Chief Complaint: Complaint ED Provider: Guevara Mcdermott Dx/Rx/DC Orders Clinical Impression: UTI (urinary tract infection) Instructions: ED Urinary Tract Infections in Women Prescriptions: New cephalexin 500 mg capsule 500 mg PO BID 10 Days Qty: 20 RF: 0 No Action repaglinide 2 mg tablet 2 mg PO DIRECTED RF: 0 cholecalciferol (vitamin D3) 50 mcg (2,000 unit) capsule 50 mcg PO DAILY RF: 0 potassium 99 mg tablet 99 mg PO DAILY RF: 0 magnesium oxide 250 mg magnesium tablet 500 mg PO DAILY RF: 0 metoprolol succinate 100 MG tablet 100 mg PO DAILY RF: 0 triamterene-hydrochlorothiazid 1 TABLET tablet 1 tab PO DAILY RF: 0 levothyroxine 137 MCG tablet 150 mcg PO DAILY RF: 0 fenofibrate nanocrystallized 145 MG tablet 145 mg PO QHS RF: 0 Levemir FlexTouch U-100 Insuln 100 unit/mL (3 mL) insulin pen 44 unit SC QHS RF: 0 Primary Care Provider: Rohit Torres Referrals: Rohit Torres MD [Primary Care Provider] - 3-5 Days if not improving Disposition Disposition: Home, self care Discharge Date/Time: 01/22/21 23:39
[2021-01-22 22:45] VITALS: BP 128/62; PULSE 67; RESP 16; TEMP 37; O2SAT 97
[2021-01-22 22:52] LABS: Absolute Lymphocyte Count 0.98 X10^3/uL (0.83-4.51); Absolute Neutrophil Count 8.9 X10^3/uL (2.0-7.7); Basophil# 0.03 X10^3/uL; Basophil% 0.3 % (0-1); Eosinophil# 0.12 X10^3/uL; Eosinophils% 1.1 % (0-5); Hematocrit 40.8 % (37-47); Hemoglobin 13.8 g/dL (12.0-15.0); Lymphocyte # 0.98 X10^3/ul (0.83-4.51); Lymphocyte % 8.8 % (19-41); Mean Corp Hgb Conc 33.8 g/dL (32-36); Mean Corpuscular Hgb 30.5 pg (27.0-32.0); Mean Corpuscular Volume 90.3 fL (81-99); Mean Platelet Vol. 11.4 fl (6.2-12.0); Monocyte# 1.03 X10^3/uL; Monocyte% 9.3 % (0-10); NRBC Flagged by Analyzer 0 % (0-5); Neutrophil # 8.89 X10^3/uL (2.7-7.7); Neutrophil % 79.9 % (47-70); Platelet Count 194 K/mm3 (150-450); RBC Distribution Width CV 14.7 % (11.6-14.6); RBC Distribution Width SD 48.6 fl (35.1-43.9); Red Blood Count 4.52 M/mm3 (4.2-5.4); White Blood Count 11.1 K/mm3 (4.4-11.0)
[2021-01-22] MEDS: Ceftriaxone 1 GM/50 ML BAG IV (22:55)
[2021-01-22 23:01] VITALS: BP 125/61; PULSE 70; RESP 16; TEMP 36.8; O2SAT 99
[2021-01-22 23:08] VITALS: RESP 16
[2021-01-22 23:11] LABS: AST(SGOT) 17 U/L (15-37); Alanine Aminotransfer ALT/SGPT 37 U/L (13-56); Albumin, Serum 3.9 g/dL (3.2-5.0); Alkaline Phosphatase 70 U/L (45-117); Anion Gap 9 (5-15); BUN 21 mg/dL (7-18); BUN/Creat Ratio 17.8 RATIO (10-20); Calcium,Total 9.7 mg/dL (8.5-10.1); Chloride 103 mmol/L (98-107); Creatinine, Serum 1.18 mg/dL (0.55-1.02); EST Glomerular Filtration Rate 49 mL/min (>60); Est Glom Filt Rate - Afr Amer 60 mL/min (>60); Estimated Creatinine Clearance 55.25 ml/min; Glucose 156 mg/dL (74-106); Lipase 126 U/L (73-393); Potassium 3.5 mmol/L (3.5-5.1); Protein, Total 7.9 g/dL (6.4-8.2); Sodium Level 138 mmol/L (136-145)
[2021-01-22 23:34] VITALS: RESP 16
== END 2021-01-22 23:39 | disposition home or self-care (01) ==
PROVIDERS: Emergency Provider Emergency Medicine; PCP Family Medicine
DX: N39.0 Urinary tract infection, site not specified (principal); M19.90 Unspecified osteoarthritis, unspecified site; E11.9 Type 2 diabetes mellitus without complications; E07.9 Disorder of thyroid, unspecified; Z79.2 Long term (current) use of antibiotics; Z79.4 Long term (current) use of insulin; Z79.899 Other long term (current) drug therapy
CPT/HCPCS: 80053; 83690; 85025; 96365; 99283; J7050; A4216

== ENCOUNTER → 2021-01-22 | Outpatient (CLI) | payer OTHER, SELFPAY ==
[2021-01-22 14:56] VITALS: BMI 29.1
[2021-01-22 18:07] LABS: Bacteria 0 SEEN /hpf (None Seen); Mucous, Urine 0 SEEN /hpf (<or=2+)
[2021-01-22 18:23] LABS: Color, Urine Yellow (Yellow); Glucose, Dipstick Normal (Normal); Ketone-Dipstick Negative (Negative); Leukocyte Esterase-Dipstick 100 /ul (Negative); Nitrite-Dipstick Negative (Negative); Occult Blood-Urine 50 /ul (Negative); Protein-Dipstick 30 mg/dl (Negative); Urine Bilirubin Dipstick Negative (Negative); Urine Clarity Sl. Cloudy (Clear); Urine Urobilinogen Normal (Normal)
[2021-01-22 18:36] LABS: Red Blood Cells-Urine 0-5 SEEN /hpf (0-5); Squamous Epithelial Cells - UA 0-5 SEEN /hpf (5-10); White Blood Cells 10-25 SEEN /hpf (0-5)
== END | disposition home or self-care (01) ==
LOC: LABSPEC 18:05
PROVIDERS: PCP Family Medicine; Visit Provider Physician Assistant Surgical
DX: N39.0 Urinary tract infection, site not specified (principal)
CPT/HCPCS: 81001; 87086; 87088; 87186

== ENCOUNTER → 2021-02-02 07:13 | Outpatient (CLI) | payer OTHER, SELFPAY ==
[2021-01-22 21:06] VITALS: BMI 29.7
--- NOTE | 2021-02-02 07:27 | MRI_ITS ---
HISTORY: RADICULOPATHY, ARTHRODESIS, CERVICALGIA. TECHNIQUE: Routine MRI of the cervical spine was performed. # of images incl. paperwork: 265. IV Contrast dosage and agent: None. COMPARISON: XR 01/18/2021, MR 02/07/2013. FINDINGS: VERTEBRAE: Vertebral body heights maintained. Artifact from anterior spinal fusion hardware at C5-7. Degenerative subchondral bone marrow edema at the C4-5 facet. ALIGNMENT: No anterior or posterior subluxation. CORD: Morphology and signal within normal limits. SOFT TISSUES: No prevertebral fluid collection. INTERVERTEBRAL DISCS: C2-3, C7-T1: No significant posterior disc protrusion, central canal stenosis, or foraminal narrowing. C3-4: Facet arthropathy with moderate left foraminal narrowing. No significant posterior disc protrusion or central canal stenosis. C4-5: Increased size of posterior disc protrusion with uncovertebral and facet arthropathy resulting in severe central canal stenosis with increased cord impingement. Right foraminal narrowing. C5-6: Interbody fusion. No significant central canal stenosis. Mild left foraminal narrowing. C6-7: Interbody fusion. No significant central canal stenosis. Moderate left foraminal narrowing. Small perineural cysts incidentally noted. MRI/Spine Cervical (Routine) IMPRESSION: Increased size of posterior disc protrusion at C4-5 resulting in severe spinal canal stenosis and increased spinal cord impingement. ACDF of C5-C7. at 1629 Reported and signed by: Mari Boykin MD Electronically Signed: Mari Boykin MD at 16:27 EDT Tel , Service support ,
== END ==
PROVIDERS: PCP Family Medicine; Referring Provider Orthopaedic Surgery; Visit Provider Orthopaedic Surgery
DX: M54.12 Radiculopathy, cervical region (principal); M54.2 Cervicalgia; Z98.1 Arthrodesis status
CPT/HCPCS: 72141

== ENCOUNTER 2021-04-03 10:55 | Outpatient (RCR) | payer OTHER, SELFPAY ==
[2021-04-03 12:55] LABS: AST(SGOT) 24 U/L (15-37); Alanine Aminotransfer ALT/SGPT 45 U/L (13-56); Albumin, Serum 3.9 g/dL (3.2-5.0); Alkaline Phosphatase 73 U/L (45-117); Amylase 39 U/L (25-115); Globulin 4.2 g/dL (2.2-4.2); Lipase 239 U/L (73-393); Protein, Total 8.1 g/dL (6.4-8.2)
== END 2021-04-03 18:00 | disposition home or self-care (01) ==
LOC: MTLAB 10:55
PROVIDERS: PCP Family Medicine; Referring Provider Internal Medicine Gastroenterology; Visit Provider Internal Medicine Gastroenterology
DX: R10.9 Unspecified abdominal pain (principal)
CPT/HCPCS: 36415; 80076; 82150; 83690

== ENCOUNTER → 2021-05-14 06:55 | Outpatient (CLI) | payer OTHER, SELFPAY ==
--- NOTE | 2021-05-14 06:59 | MRI_ITS ---
STUDY: MRI LUMBAR SPINE WITHOUT CONTRAST REASON FOR EXAM: Female, 61 years old. pain TECHNIQUE: Standardized fat and water weighted pulse sequences were obtained in the sagittal and axial planes. COMPARISON: Lumbar spine x-rays obtained on 04/17/2021 FINDINGS: Mild straightening of the normal alignment of the columns of the lumbar spine visualized, no evidence of spondylolisthesis is seen. Heterogeneous signal intensity visualized within the marrow of the lumbar vertebral bodies most prominent involving the L1 vertebral body, no evidence of T2 prolongation on the STIR sequence to suggest edema, infection or infiltrative process, thus findings most likely represent degenerative changes. Schmorl''s node visualized along the right anterolateral aspect of the inferior endplate of the L1 vertebral body with surrounding rim of T2 prolongation. Disc desiccation visualized throughout the lumbar spine, slightly decreased intervertebral disc height visualized at L1-2 intervertebral disc space and to a lesser extent L3-L4. The cord terminates at the level of the L1-2 intervertebral disc space, no abnormal signal intensity visualized within the terminal cord, terminal neurofibers demonstrate no evidence of thickening or clumping. Mild prominence of the posterior epidural fat visualized most prominent at the level of the L2-3 intervertebral disc space, would recommend clinical correlation for epidural lipomatosis, correlate with the medications patient is taking/steroid intake. T2 prolongation visualized within the facet joints at L3-L4 more prominent on the right with an irregular 0.8 cm circumscribed area of T2 prolongation visualized underlying the anterior aspect of the right ligamentum flavum no continuing with the facet joint space is seen at this level, this most likely represents a synovial cyst is visualized on axial series 5 image 12 hypertrophic changes in the ligamentum flavum visualized at this level and prominent on the right. L1-2: Circumferential disc bulges hypertrophic changes in the facet joints and ligamentum flavum visualized at this level, no narrowing of the spinal canal is visualized at this level no significant narrowing of the neural foramina is visualized at this level. L2-3: Degenerative disc changes with hypertrophic changes in the facet joints and ligamentum flavum visualized at this level, subtle T2 prolongation visualized in the facet joints and along the undersurface of the right ligamentum flavum. No narrowing of the spinal canal or bilateral neural foramina is visualized at this level.Prominence of the posterior epidural fat is seen at this level. L3-4: Circumferential disc bulge with hypertrophic changes in the facet joints. Prominence of the posterior epidural fat is seen at this level. Extensive hypertrophic changes in the facet joints and ligamentum flavum visualized more prominent on the right where there is a 0.8 cm synovial cyst seen, suggestion of continuity with a subcortical bone cyst at this level. Bilateral facet joint T2 prolongation visualized at this level. Mild narrowing of the spinal canal with mild narrowing of bilateral neural foramina seen at this level. L4-5: Degenerative changes visualized in the intervertebral disc with hypertrophic changes in the facet joints. Prominence of the epidural fat planes is seen. No significant narrowing of the spinal canal is visualized with mild narrowing of bilateral neural foramina seen at this level. L5-S1: Degenerative disc changes with hypertrophic changes in the facet joints visualized at this level, subtle T2 prolongation in the facet joints bilaterally. No spinal canal narrowing is seen at this level, no significant narrowing of the neuroforamina is visualized at this level. Normal visualized sacral ala. Suggestion of bilateral nerve root sleeves at S1-S2. Normal visualized paraspinous soft tissue structures. MRI/Spine Lumbar (Routine) IMPRESSION: Multilevel degenerative intervertebral disc disease visualized most prominent at L3-L4 T2 prolongation visualized in the facet joints at L3-L4 more prominent on the right. 0.8 cm synovial cyst underlying the anterior aspect of the right ligamentum flavum at L3-L4 level. Prominent epidural fat visualized at multiple levels, recommend clinical correlation for epidural lipomatosis. Electronically Signed: [place] MD at 13:31 EDT Tel , Service support ,
[2021-05-14 08:05] LABS: Hemoglobin A1c 6.5 % (3.8-5.6)
[2021-05-14 08:16] LABS: Microalbumin,Random Urine 5.5 mg/L (NO RANGE EST.)
== END ==
PROVIDERS: PCP Family Medicine; Referring Provider Orthopaedic Surgery; Visit Provider Orthopaedic Surgery
DX: E11.9 Type 2 diabetes mellitus without complications (principal); M51.26 Other intervertebral disc displacement, lumbar region
CPT/HCPCS: 36415; 72148; 82043; 83036

== ENCOUNTER → 2021-06-14 08:46 | Outpatient (CLI) | payer OTHER, SELFPAY ==
[2021-06-14 08:48] LABS: Bacteria 0 SEEN /hpf (None Seen); Mucous, Urine 0 SEEN /hpf (<or=2+); Red Blood Cells-Urine 0 SEEN /hpf (0-5)
[2021-06-14 09:50] LABS: Absolute Lymphocyte Count 1.36 X10^3/uL (0.83-4.51); Absolute Neutrophil Count 3.1 X10^3/uL (2.0-7.7); Basophil# 0.04 X10^3/uL; Basophil% 0.7 % (0-1); Eosinophil# 0.28 X10^3/uL; Eosinophils% 5.2 % (0-5); Hematocrit 42.1 % (37-47); Hemoglobin 14.4 g/dL (12.0-15.0); Lymphocyte # 1.36 X10^3/ul (0.83-4.51); Mean Corp Hgb Conc 34.2 g/dL (32-36); Mean Corpuscular Hgb 30.7 pg (27.0-32.0); Mean Corpuscular Volume 89.8 fL (81-99); Mean Platelet Vol. 10.9 fl (6.2-12.0); Monocyte# 0.55 X10^3/uL; Monocyte% 10.1 % (0-10); NRBC Flagged by Analyzer 0 % (0-5); Neutrophil # 3.11 X10^3/uL (2.7-7.7); Neutrophil % 57.3 % (47-70); Platelet Count 276 K/mm3 (150-450); RBC Distribution Width CV 14.7 % (11.6-14.6); Red Blood Count 4.69 M/mm3 (4.2-5.4); White Blood Count 5.4 K/mm3 (4.4-11.0)
[2021-06-14 10:21] LABS: ALB/GLOB Ratio 0.9 RATIO (0.9-2.4); AST(SGOT) 37 U/L (15-37); Alanine Aminotransfer ALT/SGPT 57 U/L (13-56); Albumin, Serum 3.8 g/dL (3.2-5.0); Alkaline Phosphatase 74 U/L (45-117); Anion Gap 7 (5-15); BUN 19 mg/dL (7-18); BUN/Creat Ratio 17.4 RATIO (10-20); Calcium,Total 9.4 mg/dL (8.5-10.1); Chloride 104 mmol/L (98-107); Cholesterol 214 mg/dL (200); Creatinine, Serum 1.09 mg/dL (0.55-1.02); EST Glomerular Filtration Rate 54 mL/min (>60); Est Glom Filt Rate - Afr Amer 65 mL/min (>60); Globulin 4.2 g/dL (2.2-4.2); Glucose 190 mg/dL (74-106); High Density Lipoprotein 32 mg/dL; Phosphorus 2.9 mg/dL (2.5-4.9); Potassium 3.7 mmol/L (3.5-5.1); Sodium Level 138 mmol/L (136-145); Triglycerides 385 mg/dL; Very Low Density Lipoprotein 77 mg/dL (5-40)
[2021-06-14 10:25] LABS: Protein, Urine (Random) < 6.0 mg/dL (<11.9)
[2021-06-14 10:32] LABS: Color, Urine Yellow (Yellow); Glucose, Dipstick Normal (Normal); Ketone-Dipstick Negative (Negative); Leukocyte Esterase-Dipstick 500 /ul (Negative); Nitrite-Dipstick Negative (Negative); Occult Blood-Urine Negative /ul (Negative); Protein-Dipstick Negative (Negative); Urine Bilirubin Dipstick Negative (Negative); Urine Clarity Sl. Cloudy (Clear); Urine Urobilinogen Normal (Normal); Urine pH 6.5 (5.0 - 8.0)
[2021-06-14 10:34] LABS: PTHIN 25.8 pg/mL (18.4-80.1)
[2021-06-14 10:39] LABS: Squamous Epithelial Cells - UA 0-5 SEEN /hpf (5-10); White Blood Cells 25-50 SEEN /hpf (0-5)
== END ==
PROVIDERS: PCP Family Medicine; Referring Provider Family Medicine; Visit Provider Family Medicine
DX: E11.69 Type 2 diabetes mellitus with other specified complication (principal); E11.22 Type 2 diabetes mellitus with diabetic chronic kidney disease; N18.30 Chronic kidney disease, stage 3 unspecified
CPT/HCPCS: 36415; 80053; 80061; 81001; 82570; 83970; 84100; 84156; 85025

== ENCOUNTER → 2021-06-18 11:23 | Outpatient (CLI) | payer OTHER, SELFPAY | PROVIDERS: PCP Family Medicine; Referring Provider Family Medicine; Visit Provider Family Medicine | DX: R82.81 Pyuria (principal) | CPT/HCPCS: 87077; 87086; 87088; 87186 ==

== ENCOUNTER 2021-07-23 05:55 | Day surgery (SDC) | payer OTHER, SELFPAY ==
[2021-07-19 11:00] LABS: Thyroid Stim Hormone (TSH) 1.88 uIU/mL (0.358-3.74)
[2021-07-19 11:09] LABS: HIV - WCH Non-Reactive (Nonreactive); Hepatitis B Surface Antibody Non-Reactive; Hepatitis C Antibody Non-Reactive (Nonreactive)
[2021-07-20 12:37] LABS: Hepatitis A AB, Total Negative (Negative)
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
[2021-07-23] VITALS (13 sets, daily range): BP systolic 114–143; BP diastolic 58–70; PULSE 52–67; RESP 10–16; TEMP 36.3–36.5; O2SAT 93–100; BMI 30.7
[2021-07-23] MEDS: Acetaminophen 500 MG Tablet 1000 MG PO (06:38)
[2021-07-23] MEDS: Lactated Ringers 1,000 ML 15 ML IV (06:38)
--- NOTE | 2021-07-23 07:30 | DISC_PTH ---
PATIENT: BOLIVAR ESCUDERO LOC: [facility] [place] U#:[id number] AGE/SX: 61/F ROOM: RE07/23/[address]: Dr. Harpreet Alvarez DO : 1960 BED: DIS: 07/23/2021 SPEC #: [id number] RECD: 07/23/21 14:18 STATUS: CAITLYN RE #: [id number] CARMEN: 07/23/21 07:[address]: Harpreet Alvarez DEPT: SURGICAL PATHOLOGY RECD BY: Chelsea Ramirez ENTERED: 07/24/21 09:45 SP TYPE: DISC OTHR DR: Dr. Rohit Torres MD Tissues: Intervertebral disc, NOS Procedures: Surgery Specimen Level III HEADER OPERATION: Anterior cervical fusion C4-5 PRE-OP DIAGNOSIS: Herniated nucleus pulposus, cervical TISSUE SUBMITTED: Cervical disc C4-5 MICROSCOPIC DIAGNOSIS Intervertebral disc, C4-5, discectomy: Fragments of intervertebral disc with degenerative change. AM:nam 07/25/2021 MICROSCOPIC DESCRIPTION Slides are reviewed. GROSS DESCRIPTION Received in fixative is one container labeled with the patient's name and designated cervical disc C4-5. The specimen consists of one irregular fragment of light nails soft tissue that measures 3 x 2.2 x 0.5 cm. Computer Support Analyst sections are submitted in one cassette. / AM:nam 07/24/21 TC:5 CPT: 29048
--- NOTE | 2021-07-23 07:30 | RAD_ITS ---
STUDY: X-RAY - CERVICAL SPINE REASON FOR EXAM: Female, 61 years old. ANTERIOR FUSION C4-5 TECHNIQUE: 1 view(s) of the cervical spine were obtained. COMPARISON: None FINDINGS: Localization instrument is seen along the anterior aspect of the C4-C5 level. RAD/Spine 1 View Any Level IMPRESSION: Localization instrument is seen along the anterior aspect of the C4-C5 level. Electronically Signed: Jorje Mayo MD at 10:00 EST , Service support ,
[2021-07-23 07:35] LABS: Bedside Glucose 123 mg/dL (70-110)
[2021-07-23] MEDS: Heparin 10,000 UNITS/10 ML Vial 10000 UNITS (10:21)
[2021-07-23] MEDS: THROMBIN (RECOMBINANT) 20,000 UNIT VIAL 20000 UNIT TOPICAL (10:21)
--- NOTE | 2021-07-23 11:33 | RAD_ITS ---
STUDY: X-RAY - CERVICAL SPINE REASON FOR EXAM: Female, 61 years old. FUSION C4-5 TECHNIQUE: 1 view(s) of the cervical spine were obtained. COMPARISON: Comparison is made with prior study done earlier today. FINDINGS: There is evidence of anterior fusion at the C4-C5 level with prosthetic disc placement. RAD/Spine 1 View Any Level IMPRESSION: Status post anterior fusion at the C4-C5 level with prosthetic disc placement. Electronically Signed: Jorje Mayo MD at 12:40 EST , Service support ,
--- NOTE | 2021-07-23 12:06 | DCINST_ITS ---
Discharge Instructions Diet Discharge Diet: No restrictions Activity Discharge Activity: May Not Drive (while taking narcotic pain medications.) May shower in (days): 1 Ice area for (Minutes): 20 (Ice area for 20 minutes each hour while awake) Weight Bearing Status: Weight bearing as tolerated Dressing / Incision Call your doctor if your incision/area has: Continuous Slow Oozing, Sudden Increased Bleeding, Increased Pain/ Swelling, Increased Redness and Foul Smelling Discharge Call your doctor if you observe: Fever of 101 or Higher, Coldness, Increased Pain, Numbness or Tingling and Change in Color Follow Up Care Test Results: Test results from this visit will be discussed in further detail at your follow-up appointment, if applicable. Discharge Plan Admission Attending Provider: Harpreet Alvarez Primary Care Provider: Rohit Torres Instructions Additional Instructions / Restrictions: Instructions for the painAre as follows. She has an appointment at 11:00 tomorrow at my office for us to change the dressing and remove her drain. She was given be given further instructions at that time. Thursday she will be able to remove the dressing and on Thursday she will be able to take shower. He is not to drive for 2 weeks. She is not to lift more than 15 pounds for the first month. She can advance her diet over the next couple of days to eat regular lucho d. At first she can eat soft food. I will see her tomorrow at 11:00 in my office. Discharge Orders/Prescriptions Prescriptions: Continued repaglinide 2 mg tablet 2 mg PO DIRECTED RF: 0 cholecalciferol (vitamin D3) 50 mcg (2,000 unit) capsule 50 mcg PO DAILY RF: 0 potassium 99 mg tablet 99 mg PO DAILY RF: 0 magnesium oxide 250 mg magnesium tablet 500 mg PO DAILY RF: 0 repaglinide 1 mg tablet 1 mg PO UD RF: 0 triamterene-hydrochlorothiazid 37.5-25 mg tablet 1 tab PO DAILY RF: 0 zolpidem 10 mg tablet 10 mg PO QHS PRN (Reason: Sleep) RF: 0 meclizine 25 mg tablet 25 mg PO DAILY RF: 0 metoprolol succinate 100 mg tablet extended release 24 hr 100 mg PO DAILY RF: 0 cyclobenzaprine 10 mg tablet 10 tablet PO DAILY PRN (Reason: Muscle Spasm) RF: 0 levothyroxine 137 MCG tablet 150 mcg PO DAILY RF: 0 fenofibrate nanocrystallized 145 MG tablet 145 mg PO QHS RF: 0 Tresiba FlexTouch U-100 100 unit/mL (3 mL) Insulin Pen 38 unit SUBCUT DAILY RF: 0 hydrocodone-acetaminophen 7.5-325 mg tablet 1 tab PO Q6H PRN (Reason: pain) 7 Days Qty: 28 RF: 0 cephalexin 500 mg capsule 500 mg PO Q8H 2 Days Qty: 6 RF: 0 oxycodone-acetaminophen 7.5-325 mg tablet 1 tab PO Q6H PRN (Reason: pain) 7 Days Qty: 30 RF: 0 Referrals / Follow Up: Rohit Torres MD [Primary Care Provider] - Disposition Disposition (needs filled in before D/C Order can be placed): Home, Self Care
--- NOTE | 2021-07-23 12:13 | OP.PCM_ITS ---
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 Alvarez captain assistant: Gail WASHINGTON Anesthesia: General endotracheal anesthesia administered by [facility] Estimated blood loss: 20 cc Drains: 1/4 inch [place] Complications: None Procedure: Patient was taken to the OR where she was placed in the supine position on the operating table she was then placed under general endotracheal anesthesia. A Ramírez catheter was inserted during the case. Neuro monitoring placed all their leads and the patient. A preoperative x-ray was taken with a needle marker in place and then the skin marked with a small laceration using the end of a needle at the point where the incision would be started. The neck and the right crest area were then prepped and draped in standard fashion. First we obtained our bone marrow aspirate from the right iliac crest. Small puncture incision was made directly over the top of the ASIS and a Jamshidi needle was then tamped into place and 60 cc of BMA were obtained. This was handed off to the substation maintenance technician in the room who then operated the stem cells from the rest of the cells with a centrifuge. These were handed back to assault and surgery. 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 The strap muscles were obvious these were then pulled towards the middle of the carotid was kept to the right side and then I used the Cloward retractors to retract over the precervical fascia. It was opened over the space that thought to be see 4 5. The top of the plate was indeed identified and we knew that the disc would be about a quarter 3 eight 7 inch above it all the disc was identified it was then marked. Obviously x-ray confirmation was not needed as we had the plate there for confirmation. Then cauterized just a little above the disc space and below I then cut the anterior annulus with a 15 blade removed it we then used pituitary rongeurs to remove the nucleus from within the disc space. Following this I used a humphrey bur to bur the uncinate process on the right side and open the foramen and remove the Thais disc. Up with then checked it with a nerve hook was found to be an open foramen. I then removed all remaining cartilage off both endplates using curettes. The a humphrey bur was then used to enlarge the space a bit flattening the lateral sides that were curving up at the uncinate processes and generally flattening the anterior lips. This would make for a better fit. And took my measurements for the cage we decided on 8 mm high larger cage which was 16-1/2 wide by 14 deep. I used a broach to broach the space into good bleeding endplate bone. Note that we thoroughly irrigated throughout the case. I then filled the cage with demineralized bone matrix that was spongy in nature soaked in the patient's own stem cells I then tamped the cage into place while anesthesia pulled on the head. Note this was a stand- alone cage so it had 1 screw that went up into C4 and one down into C5. Note that we have drilling guide specially for that of course however it was really not necessary as I have enough experience doing these with a freehand thus I freehanded the all at both points followed by the self-tapping 16mm screw at both points. X-rays were taken on the lateral projection demonstrate excellent position of the cage at C4-5 in excellent position and angle of the 2 screws. A fter 1 last thorough irrigation a none membrane was placed over the cage to prevent its adherence to the trachea or esophagus. A 1/4 inch Doe drain was inserted and closure was begun. The subcutaneous tissues were closed in layers and this approximated the skin. Sterile dressings were applied after first putting a safety pin through the drain to prevent a suction into the wound. Patient was then recovered in the OR and moved back to recovery in satisfactory condition. This is the end of operative summary on Ira Dumont. This is Dr. Alvarez dictating.
[2021-07-23] MEDS: Lactated Ringers 1,000 ML 100 ML IV (14:11)
[2021-07-23 14:55] LABS: Bedside Glucose 138 mg/dL (70-110)
== END 2021-07-23 16:25 | disposition home or self-care (01) ==
LOC: SDC 05:55 → AC 05:56
PROVIDERS: Anesthesiology; PCP Family Medicine; Referring Provider Orthopaedic Surgery; Visit Provider Orthopaedic Surgery
PROC: (CPT 22551; principal; 2021-07-23 07:00)
DX: M50.121 Cervical disc disorder at C4-C5 level with radiculopathy (principal); I10 Essential (primary) hypertension; G47.30 Sleep apnea, unspecified; Z79.899 Other long term (current) drug therapy; Z79.4 Long term (current) use of insulin; Z98.1 Arthrodesis status; Z87.891 Personal history of nicotine dependence
CPT/HCPCS: 22551; 22554; 36415; 72020; 82962; 83735; 84443; 86703; 86706; 86708; 86803; 87081; 88304; 93005; C1713; J7120; J2405

== ENCOUNTER 2021-08-13 09:02 | Outpatient (CLI) | payer OTHER, SELFPAY ==
--- NOTE | 2021-08-13 09:05 | BI_ITS ---
MAMMOGRAPHY - BILATERAL SCREENING REASON FOR EXAM: Female, 61 years old. Routine annual screening examination. PERTINENT HISTORY: Non-contributory. TECHNIQUE: Digital bilateral breast serene (3D mammographic acquisition) in the CC and MLO projections. 2-D mediolateral oblique (MLO) and craniocaudad (CC) views of both breasts were obtained. CAD: Full Field Digital Mammography with Computer Added Detection was performed. COMPARISON: Comparison is made with prior examination of 09/17/2007. FINDINGS: Breast Composition: The breasts are heterogeneously dense, which may obscure small masses. There are no dominant masses or suspicious calcifications. No other significant abnormalities are identified. There has been no significant change since the prior study. BI/SCRN MAMM (CAD)W/SERENE BILAT IMPRESSION: Stable bilateral screening mammogram. Yearly follow-up mammogram recommended. (A) ASSESSMENT CATEGORY: BIRADS Category 1: Negative. A letter regarding these results will be sent to the patient by the facility within 30 days. Approximately 10% of breast cancers are not detected by mammography. A normal mammogram should not delay biopsy of a clinically suspicious abnormality. [id number] Electronically Signed: Jorje Mayo MD at 10:02 EST , Service support ,
== END 2021-08-13 23:59 | disposition short-term general hospital (02) ==
LOC: OPBI 09:03
PROVIDERS: PCP Family Medicine; Referring Provider Family Medicine; Visit Provider Family Medicine
DX: Z12.31 Encounter for screening mammogram for malignant neoplasm of breast (principal)
CPT/HCPCS: 77063; 77067

== ENCOUNTER → 2021-11-26 07:11 | Outpatient (CLI) | payer BC, SELFPAY ==
[2021-11-26 10:08] LABS: PTHIN 19.7 pg/mL (18.4-80.1)
[2021-11-26 10:10] LABS: Vitamin D,25 Hydroxy 64.9 ng/mL
[2021-11-26 10:11] LABS: Hemoglobin A1c 6.6 % (3.8-5.6)
[2021-11-26 10:26] LABS: AST(SGOT) 29 U/L (15-37); Alanine Aminotransfer ALT/SGPT 47 U/L (13-56); Albumin, Serum 3.6 g/dL (3.2-5.0); Alkaline Phosphatase 67 U/L (45-117); Anion Gap 7 (5-15); BUN 22 mg/dL (7-18); BUN/Creat Ratio 21.2 RATIO (10-20); Calcium,Total 8.7 mg/dL (8.5-10.1); Chloride 104 mmol/L (98-107); Cholesterol 163 mg/dL (200); Creatinine, Serum 1.04 mg/dL (0.55-1.02); EST Glomerular Filtration Rate 57 mL/min (>60); Est Glom Filt Rate - Afr Amer 69 mL/min (>60); Globulin 3.6 g/dL (2.2-4.2); Glucose 136 mg/dL (74-106); High Density Lipoprotein 37 mg/dL; Potassium 3.5 mmol/L (3.5-5.1); Protein, Total 7.2 g/dL (6.4-8.2); Sodium Level 139 mmol/L (136-145); Thyroid Stim Hormone (TSH) 2.04 uIU/mL (0.358-3.74); Triglycerides 160 mg/dL; Very Low Density Lipoprotein 32 mg/dL (5-40)
[2021-11-26 10:36] LABS: Microalbumin,Random Urine 10.3 mg/L (NO RANGE EST.)
== END ==
PROVIDERS: PCP Family Medicine
DX: E11.9 Type 2 diabetes mellitus without complications (principal); E89.0 Postprocedural hypothyroidism
CPT/HCPCS: 36415; 80053; 80061; 82043; 82306; 83036; 83970; 84439; 84443

== ENCOUNTER → 2022-05-16 | Outpatient (CLI) | payer BC, SELFPAY ==
--- NOTE | 2022-05-16 11:33 | RAD_ITS ---
STUDY: X-RAY - PELVIS AND RIGHT HIP REASON FOR EXAM: Female, 62 years old. PAIN IN HIP TECHNIQUE: 3 views of the pelvis and hip. COMPARISON: None. FINDINGS: There is a non-specific bowel gas pattern. Normal visualized soft tissue structures. Normal bilateral iliac wings, sacroiliac joints and visualized sacrum. Normal bilateral superior and inferior pubic rami. Normal pubic symphysis. Normal bilateral ischial tuberosities. Normal visualized femoral head. Normal acetabulum. Normal hip joint. RAD/HIP, UNI W/ Pelvis 2-3 Views IMPRESSION: Normal x-ray examination of the pelvis and hip. Electronically Signed: Corona Seymour MD at 21:58 EDT ,
== END | disposition home or self-care (01) ==
LOC: MTRAD 11:32
PROVIDERS: PCP Family Medicine; Referring Provider Nurse Practitioner Family; Visit Provider Nurse Practitioner Family
DX: M25.551 Pain in right hip (principal)
CPT/HCPCS: 73502

== ENCOUNTER → 2022-07-23 | Outpatient (CLI) | payer BC, SELFPAY ==
[2022-07-23 07:36] LABS: Mucous, Urine 0 SEEN /hpf (<or=2+)
[2022-07-23 09:59] LABS: Color, Urine Yellow (Yellow); Glucose, Dipstick Normal (Normal); Ketone-Dipstick Negative (Negative); Leukocyte Esterase-Dipstick 25 /ul (Negative); Nitrite-Dipstick Positive (Negative); Occult Blood-Urine 10 /ul (Negative); Protein-Dipstick Negative (Negative); Urine Bilirubin Dipstick Negative (Negative); Urine Clarity Sl. Cloudy (Clear); Urine Urobilinogen Normal (Normal)
[2022-07-23 10:00] LABS: Absolute Lymphocyte Count 1.51 X10^3/uL (0.83-4.51); Absolute Neutrophil Count 2.7 X10^3/uL (2.0-7.7); Basophil# 0.05 X10^3/uL; Basophil% 0.9 % (0-1); Eosinophil# 0.31 X10^3/uL; Eosinophils% 5.9 % (0-5); Hematocrit 43.1 % (37-47); Hemoglobin 14.3 g/dL (12.0-15.0); Lymphocyte # 1.51 X10^3/ul (0.83-4.51); Lymphocyte % 28.5 % (19-41); Mean Corp Hgb Conc 33.2 g/dL (32-36); Mean Corpuscular Hgb 30.4 pg (27.0-32.0); Mean Corpuscular Volume 91.7 fL (81-99); Monocyte# 0.68 X10^3/uL; Monocyte% 12.9 % (0-10); NRBC Flagged by Analyzer 0 % (0-5); Platelet Count 229 K/mm3 (150-450); RBC Distribution Width CV 13.9 % (11.6-14.6); RBC Distribution Width SD 47.1 fl (35.1-43.9); White Blood Count 5.3 K/mm3 (4.4-11.0)
[2022-07-23 10:16] LABS: Bacteria 4+ /hpf (None Seen); Squamous Epithelial Cells - UA 0-5 SEEN /hpf (5-10)
[2022-07-23 10:17] LABS: Red Blood Cells-Urine 0-5 SEEN /hpf (0-5); White Blood Cells 5-10 SEEN /hpf (0-5)
[2022-07-23 10:18] LABS: Protein, Urine (Random) 8.5 mg/dL (<11.9); Protein:Creat Ratio 47 mg/g CRE (0-200)
[2022-07-23 10:19] LABS: ALB/GLOB Ratio 1.2 RATIO (0.9-2.4); AST(SGOT) 20 U/L (15-37); Alanine Aminotransfer ALT/SGPT 40 U/L (13-56); Albumin, Serum 3.7 g/dL (3.2-5.0); Alkaline Phosphatase 69 U/L (45-117); Anion Gap 8 (5-15); BUN 24 mg/dL (7-18); BUN/Creat Ratio 21.2 RATIO (10-20); Calcium,Total 9.5 mg/dL (8.5-10.1); Chloride 104 mmol/L (98-107); Cholesterol 254 mg/dL (200); Creatinine, Serum 1.13 mg/dL (0.55-1.02); EST Glomerular Filtration Rate 52 mL/min (>60); Est Glom Filt Rate - Afr Amer 62 mL/min (>60); Globulin 3.1 g/dL (2.2-4.2); Glucose 136 mg/dL (74-106); High Density Lipoprotein 43 mg/dL; Phosphorus 3.3 mg/dL (2.5-4.9); Protein, Total 6.8 g/dL (6.4-8.2); Sodium Level 138 mmol/L (136-145); Triglycerides 200 mg/dL; Very Low Density Lipoprotein 40 mg/dL (5-40)
[2022-07-23 10:35] LABS: PTHIN 28.4 pg/mL (18.4-80.1)
== END | disposition home or self-care (01) ==
PROVIDERS: PCP Family Medicine; Referring Provider Family Medicine; Visit Provider Family Medicine
DX: N18.30 Chronic kidney disease, stage 3 unspecified (principal); E11.69 Type 2 diabetes mellitus with other specified complication; E11.22 Type 2 diabetes mellitus with diabetic chronic kidney disease
CPT/HCPCS: 36415; 80053; 80061; 81001; 82570; 83970; 84100; 84156; 85025

== ENCOUNTER → 2022-08-14 | Outpatient (CLI) | payer BC, SELFPAY ==
--- NOTE | 2022-08-14 08:11 | BI_ITS ---
MAMMOGRAPHY - BILATERAL SCREENING REASON FOR EXAM: Female, 62 years old. Routine annual screening examination. PERTINENT HISTORY: Non-contributory. TECHNIQUE: Digital bilateral breast florentino (3D mammographic acquisition) in the CC and MLO projections. 2-D mediolateral oblique (MLO) and craniocaudad (CC) views of both breasts were obtained. CAD: Full Field Digital Mammography with Computer Added Detection was performed. COMPARISON: Comparison is made with prior study dated 08/13/2021. FINDINGS: Breast Composition: The breasts are heterogeneously dense, which may obscure small masses. There are no dominant masses or suspicious calcifications. Stable small benign-appearing bilateral axillary lymph nodes. No other significant abnormalities are identified. There has been no significant change since the prior study. BI/SCREENING MAMM (CAD), BILAT IMPRESSION: Stable bilateral screening mammogram. Yearly follow-up mammogram recommended. (A) ASSESSMENT CATEGORY: BIRADS Category 2: Benign. A letter regarding these results will be sent to the patient by the facility within 30 days. Approximately 10% of breast cancers are not detected by mammography. A normal mammogram should not delay biopsy of a clinically suspicious abnormality. [id number] Electronically Signed: Jorje Mayo MD at 9:25 EST ,
== END | disposition home or self-care (01) ==
LOC: OPBI 08:09
PROVIDERS: PCP Family Medicine; Visit Provider Family Medicine
DX: Z12.31 Encounter for screening mammogram for malignant neoplasm of breast (principal)
CPT/HCPCS: 77067

== ENCOUNTER → 2022-10-29 | Outpatient (CLI) | payer BC, SELFPAY ==
--- NOTE | 2022-10-29 09:34 | BD_ITS ---
STUDY: DUAL ENERGY X-RAY ABSORPTIOMETRY / DXA REASON FOR EXAM: Female, 62 years old. V76.12ScreeningBONE DENSITY REASON FOR EXAM TECHNIQUE: Bone Mineral Density (BMD) measurements of lumbar spine and bilateral hips were obtained. COMPARISON: None. FINDINGS: Lumbar Spine (L1-L4): g/cm2 (1.168) / T-score (1.1) / Z-score (2.8) Findings are suggestive of normal bone density with a low fracture risk. Left Femur Total: g/cm2 (1.015) / T-score (0.6) / Z-score (1.8) Left Femoral Neck: g/cm2 (0.883) / T-score (0.3) / Z-score (1.8) Right Femur Total: g/cm2 (1.021) / T-score (0.6) / Z-score (1.9) Right Femoral Neck: g/cm2 (0.993) / T-score (1.3) / Z-score (2.8) BD/Dexa Bone Density Study IMPRESSION: The patient is considered normal as outlined below according to World Rogelio Organization (WHO) criteria with a low fracture risk. Reference Information: The T-score is the number of standard deviations above or below the standard which is normal for young adults at their peak bone mineral density. The World Health Organization (WHO) interprets the T-scores as follows: Above -1 Normal bone density Between -1 and -2.5 Osteopenia Equal to / or below -2.5 Osteoporosis As a practical clinical guideline, osteopenia may be graded as follows: Mild -1 through -1.5 Moderate -1.6 through -2.0 Severe -2.1 through -2.4 The Z-score is the number of standard deviations above or below age-matched controls. A Z-score of less than -1.5 would be considered abnormal. References: 1. NIH Osteoporosis and Related Bone Diseases www osteo.org 2. International Society for Clinical Densitometry www iscd.org 3. National Osteoporosis Foundation www nof.org Electronically Signed: Jorje Mayo MD at 13:36 EDT ,
[2022-10-29 10:22] LABS: Vitamin D,25 Hydroxy 58.3 ng/mL
[2022-10-29 10:24] LABS: Hemoglobin A1c 6.4 % (3.8-5.6)
[2022-10-29 10:33] LABS: ALB/GLOB Ratio 1.1 RATIO (0.9-2.4); AST(SGOT) 30 U/L (15-37); Alanine Aminotransfer ALT/SGPT 42 U/L (13-56); Albumin, Serum 3.7 g/dL (3.2-5.0); Alkaline Phosphatase 54 U/L (45-117); Anion Gap 5 (5-15); BUN 23 mg/dL (7-18); BUN/Creat Ratio 21.3 RATIO (10-20); Calcium,Total 9.4 mg/dL (8.5-10.1); Chloride 102 mmol/L (98-107); Cholesterol 174 mg/dL (200); Creatinine, Serum 1.08 mg/dL (0.55-1.02); EST Glomerular Filtration Rate 54 mL/min (>60); Est Glom Filt Rate - Afr Amer 66 mL/min (>60); Globulin 3.4 g/dL (2.2-4.2); Glucose 152 mg/dL (74-106); High Density Lipoprotein 30 mg/dL; Potassium 3.7 mmol/L (3.5-5.1); Protein, Total 7.1 g/dL (6.4-8.2); Sodium Level 138 mmol/L (136-145); Thyroid Stim Hormone (TSH) 2.06 uIU/mL (0.358-3.74); Triglycerides 210 mg/dL; Very Low Density Lipoprotein 42 mg/dL (5-40)
[2022-10-29 12:52] LABS: Microalbumin,Random Urine 6.9 mg/L (NO RANGE EST.)
== END | disposition home or self-care (01) ==
LOC: OPBD 09:26
PROVIDERS: PCP Family Medicine; Referring Provider Family Medicine; Visit Provider Family Medicine
DX: Z00.00 Encounter for general adult medical examination without abnormal findings (principal); E11.9 Type 2 diabetes mellitus without complications
CPT/HCPCS: 36415; 77080; 80053; 80061; 82043; 82306; 83036; 84443

== ENCOUNTER → 2023-03-03 | Outpatient (CLI) | payer BC, SELFPAY ==
[2023-03-03 10:31] LABS: Hemoglobin A1c 6.6 % (3.8-5.6)
[2023-03-03 10:56] LABS: Anion Gap 5 (5-15); BUN 18 mg/dL (7-18); BUN/Creat Ratio 15.7 RATIO (10-20); Calcium,Total 9.2 mg/dL (8.5-10.1); Chloride 107 mmol/L (98-107); Cholesterol 209 mg/dL (200); Creatinine, Serum 1.15 mg/dL (0.55-1.02); EST Glomerular Filtration Rate 50 mL/min (>60); Est Glom Filt Rate - Afr Amer 61 mL/min (>60); Glucose 115 mg/dL (74-106); High Density Lipoprotein 30 mg/dL; Potassium 3.6 mmol/L (3.5-5.1); Sodium Level 139 mmol/L (136-145); Triglycerides 232 mg/dL; Very Low Density Lipoprotein 46 mg/dL (5-40)
[2023-03-04 12:13] LABS: C-Peptide 3.7 ng/mL (1.1-4.4)
== END | disposition home or self-care (01) ==
LOC: MTLAB 07:07
PROVIDERS: PCP Family Medicine
DX: R73.9 Hyperglycemia, unspecified (principal)
CPT/HCPCS: 36415; 80048; 80061; 83036; 84681

== ENCOUNTER → 2023-03-24 | Outpatient (CLI) | payer BC, SELFPAY ==
[2023-03-24 16:18] LABS: Bacteria 0 SEEN /hpf (None Seen); Mucous, Urine 0 SEEN /hpf (<or=2+); Red Blood Cells-Urine 0 SEEN /hpf (0-5); Squamous Epithelial Cells - UA 0 SEEN /hpf (5-10)
[2023-03-24 18:11] LABS: Color, Urine Yellow (Yellow); Glucose, Dipstick Normal (Normal); Ketone-Dipstick Negative (Negative); Leukocyte Esterase-Dipstick 25 /ul (Negative); Nitrite-Dipstick Negative (Negative); Occult Blood-Urine Negative /ul (Negative); Protein-Dipstick Negative (Negative); Urine Bilirubin Dipstick Negative (Negative); Urine Clarity Clear (Clear); Urine Urobilinogen Normal (Normal)
[2023-03-24 18:43] LABS: White Blood Cells 0-5 SEEN /hpf (0-5)
== END | disposition home or self-care (01) ==
PROVIDERS: PCP Family Medicine; Visit Provider Physician Assistant
DX: R30.0 Dysuria (principal)
CPT/HCPCS: 81001; 87086

== ENCOUNTER → 2023-05-18 | Outpatient (CLI) | payer BC, SELFPAY ==
--- NOTE | 2023-05-18 08:06 | MRI_ITS ---
STUDY: MRI RIGHT SHOULDER REASON FOR EXAM: Female, 63 years old. Pain proximal humerus, no known injury, decreased range of motion. TECHNIQUE: Standardized fat and water weighted pulse sequences were obtained in all 3 orthogonal planes. COMPARISON: Right shoulder radiographs dated 03/10/2023. FINDINGS: There is supraspinatus tendinosis with a tiny linear partial thickness articular surface tear of the anterior distal supraspinatus tendon insertion (coronal T2 series 6 images 12-13), compatible with a rim rent tear. Normal infraspinatus tendon. Normal subscapularis tendon. Normal teres minor tendon. Normal supraspinatus muscle. Normal infraspinatus muscle. Normal subscapularis muscle. Normal teres minor muscle. Normal glenohumeral articulation. Normal humeral head and visualized proximal humerus. Normal biceps labral complex. Normal intracapsular long biceps tendon. Normal labrum. Normal capsulo-ligamentous complex. Normal rotator interval. There is mild hypertrophic acromioclavicular arthrosis with inferior osteophyte formation. There is a Type II morphology (curved), with a neutral orientation. There is a small amount of subacromial-subdeltoid bursal fluid. Normal visualized coracohumeral and coracoacromial ligaments. Normal quadrilateral space. Normal axillary space. Normal deltoid muscle. Normal trapezius muscle. MRI/Upper Ext Joint Only(Routine) IMPRESSION: Supraspinatus tendinosis with a tiny linear partial thickness articular surface tear of the anterior distal supraspinatus tendon insertion, compatible with a rim rent tear. Mild hypertrophic acromioclavicular arthrosis with inferior osteophyte formation. Mild subacromial-subdeltoid bursitis. Electronically Signed: Matthew Pollard MD at 10:02 EDT ,
== END | disposition home or self-care (01) ==
PROVIDERS: PCP Family Medicine; Referring Provider Orthopaedic Surgery Sports Medicine; Visit Provider Orthopaedic Surgery Sports Medicine
DX: M25.811 Other specified joint disorders, right shoulder (principal); M25.511 Pain in right shoulder
CPT/HCPCS: 73221

== ENCOUNTER 2023-05-28 09:30 | Outpatient (RCR) | payer BC, SELFPAY ==
--- NOTE | 2023-03-17 15:37 | HP.PTEVAL_ITS ---
Patient's Visit Information Visit Information Visit Information: BOLIVAR ESCUDERO is a 63 year old F referred to Physical Therapy by Dr. Sherif Lai MD with a diagnosis of R shoulder pain, impingement. Date of Evaluation: 03/17/23 Physical Therapist: Salvador Youngblood DPT Visit Plan Frequency: 1x/Week Duration: 6 Weeks Plan: Start with AAROM of R shoulder, add in scapular and periscapular stren gthening in limited painful ranges. May use US to RTC subacromial space if needed secondary to pain. Pt. to be seen x1 per week for 6 weeks. with progressive HEP. Subjective Subjective: Pt. is here today for her initial evaluation with diagnosis of R shoulder pain, impingement. Pt. reports having increased R shoulder pain for a few months now without mechanism of injury. Pt. denies N/T in either UE. She does have a history of cervical fusion x2, B knee replacement x2. No previous R shoulder injury. She did just recently receive an injection in her which has helped reduce her shoulder pain, but not fully take it away. Pt. has pain with lifting, pushing down, reaching out in front and especially with reaching behind her in an extended position. Pt. is hopeful to reduce her pain in order to get back to all household and recreational activities without limitations. Pain R shoulder: Pain Intensity (Out of 10): 3 Pain Intensity Range: 2 and 6 Objective Objective: POSTURE: Pt. has slight FH posture, and slight rounded shoulders. Pt. PALPATION: Pt. has tenderness along biceps long head, but more pain as lateral to posterior aspect of subacromial space. NEURO: Normal throughout. ROM: R shoulder: PROM: flexion 175 increase NW, abd 170 increase NW, ER at 90deg 90deg, IR at 90 deg 40deg. AROM: flexion 170deg increase NW, abd 165deg increase NW, functional ER C3 increase NW, functional IR L1 mild increase NW. MMT: LUE: 5/5 throughout; RUE: wrist and elbow 5/5 throughout; shoulder: flexion 4+/5, abd 4+/5, ER 4/5 mild increase NW, IR 4+/5 NE, ext 5/5 NE. Special Tests R Shoulder Drop Sign - IS Test: Negative R Shoulder Empty Can - SS: Positive R Shoulder Belly Press - SupScap: Negative R Shoulder Neer - Impingement: Positive R Shoulder Benavides Dev - Impingement: Positive R Shoulder Speeds Test - Labrum/Biceps: Negative Balance/Special Test Scores Quick DASH Score: 25.0000 Goals Goal 1:: LTG: Pt. to be I with HEP. Goal Time Frame: 4-6 Weeks Goal 2:: LTG: Pt. to have full AROM or R shoulder without increase in symptoms. Goal Time Frame: 4-6 Weeks Goal 3:: LTG: pt. to have 5/5 strength throughout R shoulder without increase in symptoms. Goal Time Frame: 4-6 Weeks Goal 4:: STG: Pt. to sleep throughout the night without increase in symptoms. Goal Time Frame: 2-4 Weeks Rehabilitation Potential Physical Therapy Diagnosis: Pt. has signs and symptoms consistent with R shoulder pain. Her symptoms have improved since having a cervical injection, but I am not convinced they are connected. She had pain with stressing her external rotators, but no major signs of RTC tear. Pt. would benefit from PT to address her weakness and limited ability to complete some daily activities in order to improve her quality of life. Rehabilitation Potential: Excellent Anticipated Interventions Patient/Client Instruction: Educate patient on: Condition, Plan of Care, Risk Factors and Benefits of Fitness Program For the Purpose of:: To improve decision making, To facilitate caregiver knowl edge, To improve self management, To prevent re-injury and To improve ability to perform tasks related to life management Therapeutic Exercise to Include: Strength training, Power training, Endurance training, Postural training, Flexibilty training, Passive ROM, Active ROM and David Exercises For the Purpose of:: To decrease pain, To increase ROM, To improve nutrient delivery to tissue, To increase oxygenation perfusion, To improve muscle performance and motor function, To decrease soft tissue restriction and To increase flexibility/ROM Cryotherapy (ice pack, ice massage): Yes For the Purpose of:: To decrease pain, To increase ROM, To improve nutrient delivery to tissue, To increase oxygenation perfusion and To improve muscle performance and motor function Text: Thank you for the opportunity to evaluate your patient. For Medicare and Medicare HMO plans, please review the plan of care and approve it. It will need to be FAXED BACK to us at [phone] for Medicare purposes. For Medicare only, by signing this I certify the plan of care. Please let me know if there are questions or concerns regarding this plan of care. Physician Signature: Date:
--- NOTE | 2023-04-14 10:13 | HP.PTREVAL ---
Re-Evaluation Intro: Dr. Sherif Lai MD, It has been my pleasure to treat BOLIVAR ESCUDERO over the last 4 visits for R shoulder pain, impingement. Please see the progress note below for an update on the physical therapy plan of care! Subjective Subjective: Pt. reports overall doing okay, but has stopped using it as much. Objective Objective/Function: Pt. has not made a ton of progress with PT this date. Pt. continue to have pain with active OH movements. Pt. has increased pain with both ER and IR movement mostly actively. Pt. has end range passive ROM pain, but mostly pain with active motions. We have had to work on modalities and AROM due to increase in pain with all resistive exercises. Plan Plan Plan: Pt. is to follow up with physician next week. She was not able to tolerate much strengthening at this point in time. I would recomment further testing due to levels of pain and limited tolerance to PT. Balance/Gait/Functional tests Balance/Special Test Scores Quick DASH Score: 25.0000 Goals Goals Goal 1:: LTG: Pt. to be I with HEP. Goal Time Frame: 4-6 Weeks Goal 2:: LTG: Pt. to have full AROM or R shoulder without increase in symptoms. Goal Time Frame: 4-6 Weeks Goal 3:: LTG: pt. to have 5/5 strength throughout R shoulder without increase in symptoms. Goal Time Frame: 4-6 Weeks Goal 4:: STG: Pt. to sleep throughout the night without increase in symptoms. Goal Time Frame: 2-4 Weeks Anticipated Interventions Anticipated Interventions Patient/Client Instruction: Educate patient on: Condition, Plan of Care, Risk Factors and Benefits of Fitness Program For the Purpose of:: To improve decision making, To facilitate caregiver knowledge, To improve self management, To prevent re-injury and To improve ability to perform tasks related to life management Therapeutic Exercise to Include: Strength training, Power training, Endurance training, Postural training, Flexibilty training, Passive ROM, Active ROM and David Exercises For the Purpose of:: To decrease pain, To increase ROM, To improve nutrient delivery to tissue, To increase oxygenation perfusion, To improve muscle performance and motor function, To decrease soft tissue restriction and To increase flexibility/ROM Cryotherapy (ice pack, ice massage): Yes For the Purpose of:: To decrease pain, To increase ROM, To improve nutrient delivery to tissue, To increase oxygenation perfusion and To improve muscle performance and motor function Re-Evaluation Ending Re-evaluation ending: Please do not hesitate to contact me at [phone] by phone or if you have questions or concerns regarding this new plan of care! Sincerely, DAKSHA GonzalezT
--- NOTE | 2023-05-29 09:52 | HP.PTDCSUM ---
Discharge Summary D/C summary: It has been my pleasure to treat BOLIVAR ESCUDERO referred by Dr. Sherif Lai MD, with the diagnosis of R shoulder pain, impingement for a total of 5 visit(s). Discharge Date: 05/28/23 Please see the following information for a summary of their discharge status. Subjective Subjective: Pt. arrives today after seeing physician and having MRI. Pt. reports she has a small tear and is planning to have surgery in Jul. Pt. is still having similar pain as she was previously. Mostly with initial abd, ER motions. Pt. reports looking for some exercises to work on to increase her strength and ROM in preparation for her surgery. Pain R shoulder: Pain Intensity (Out of 10): 3 Overall Improvement % Improvement: 10 Objective Objective/Function: Pt did well with all exercises this date. Pt. to work on these exercises independently. Pt. was given pictures and bands to increase carry over. Pt. to Goals Goal 1:: LTG: Pt. to be I with HEP. Goal Progress: Goal Met Goal 2:: LTG: Pt. to have full AROM or R shoulder without increase in symptoms. Goal Progress: Progressing Goal 3:: LTG: pt. to have 5/5 strength throughout R shoulder without increase in symptoms. Goal Progress: Progressing Goal 4:: STG: Pt. to sleep throughout the night without increase in symptoms. Goal Progress: Progressing Plan Plan: Pt. to be DC from PT at this point in time. D/C Information Discharge Comments: Pt. was treated for her R shoulder pain. She ultimately had an MRI showing a tear. She is planning to have surgery in Jul. At her last visit I gave her some light pain free strengthening exercise to complete until then. I also instructed her in some ROM exercises. Pt. to be DC to HEP at this point in time. d/c sentence: If there are questions or concerns regarding this patient's physical therapy, please feel free to call me at [phone]. Thank you for the referral of this patient. Sincerely, Salvador Youngblood, DPT Balance/Gait/Functional tests Balance/Special Test Scores Quick DASH Score: 25.0000 Improvement % Improvement: 10
== END 2023-05-28 19:00 | disposition home or self-care (01) ==
LOC: PT 09:30
PROVIDERS: PCP Family Medicine; Referring Provider Orthopaedic Surgery Sports Medicine; Visit Provider Orthopaedic Surgery Sports Medicine
DX: M25.511 Pain in right shoulder (principal); M25.811 Other specified joint disorders, right shoulder
CPT/HCPCS: 97035; 97110; 97161

== ENCOUNTER → 2023-06-09 | Outpatient (CLI) | payer BC, SELFPAY ==
[2023-06-09 10:20] LABS: AST(SGOT) 19 U/L (15-37); Alanine Aminotransfer ALT/SGPT 35 U/L (13-56); Albumin, Serum 3.5 g/dL (3.2-5.0); Alkaline Phosphatase 69 U/L (45-117); Anion Gap 4 (5-15); BUN 24 mg/dL (7-18); BUN/Creat Ratio 21.6 RATIO (10-20); Calcium,Total 9.1 mg/dL (8.5-10.1); Chloride 107 mmol/L (98-107); Cholesterol 178 mg/dL (200); Creatinine, Serum 1.11 mg/dL (0.55-1.02); EST Glomerular Filtration Rate 52 mL/min (>60); Est Glom Filt Rate - Afr Amer 63 mL/min (>60); Globulin 3.6 g/dL (2.2-4.2); Glucose 99 mg/dL (74-106); High Density Lipoprotein 38 mg/dL; Potassium 3.7 mmol/L (3.5-5.1); Protein, Total 7.1 g/dL (6.4-8.2); Sodium Level 138 mmol/L (136-145); Triglycerides 147 mg/dL; Very Low Density Lipoprotein 29 mg/dL (5-40)
[2023-06-09 10:22] LABS: Hemoglobin A1c 6.1 % (3.8-5.6)
== END | disposition home or self-care (01) ==
LOC: MTLAB 07:02
PROVIDERS: PCP Family Medicine
DX: E11.9 Type 2 diabetes mellitus without complications (principal)
CPT/HCPCS: 36415; 80053; 80061; 82043; 83036

== ENCOUNTER 2023-07-15 06:55 | Day surgery (SDC) | payer BC, SELFPAY ==
[2023-07-03 10:07] LABS: Hematocrit 39.7 % (37-47); Hemoglobin 13.5 g/dL (12.0-15.0); Mean Corpuscular Hgb 31.3 pg (27.0-32.0); Mean Corpuscular Volume 91.9 fL (81-99); Mean Platelet Vol. 11.7 fl (6.2-12.0); Platelet Count 215 K/mm3 (150-450); RBC Distribution Width CV 14.1 % (11.6-14.6); RBC Distribution Width SD 47.9 fl (35.1-43.9); Red Blood Count 4.32 M/mm3 (4.2-5.4); White Blood Count 5.2 K/mm3 (4.4-11.0)
[2023-07-03 10:50] LABS: Thyroid Stim Hormone (TSH) 3.11 uIU/mL (0.358-3.74)
[2023-07-15] VITALS (15 sets, daily range): BP systolic 87–124; BP diastolic 46–71; PULSE 39–57; RESP 16–18; TEMP 36.1–36.4; O2SAT 91–97; BMI 30.1
[2023-07-15] MEDS: Lactated Ringers 1,000 ML 15 ML IV (07:48)
[2023-07-15 08:03] LABS: Bedside Glucose 146 mg/dL (74-106)
--- NOTE | 2023-07-15 08:50 | HP.PCM_ITS ---
HPI - General HPI Narrative BOLIVAR ESCUDERO, is a 63 F who presents for right shoulder arthroscopy, subacromial decompression, rotator cuff repair. No changes to h and p. RAB and narcotic counselling. Patient ok to proceed, right shoulder marked. MR#: [id number] Acct: [id number] Name: BOLIVAR ESCUDERO Rep #: [id number] : 1960 Provider: Dr. Sherif Lai MD Age/Sex: 63/F Location: [facility] [place] Status: Signed Intake Vital Signs 03/24/2316:06 Height 5 ft 11 in Weight: 210 lb BMI 29.2 BP 145/82 H Blood Pressure Location Lt brachial Position Sitting Respiration 16 Pulse 66 Pulse Source Monitor Temp 98.4 F Temp Source Temporal Pulse Oximetry (%) 95 Oxygen Delivery Method room air Intake Visit Reasons: right shoulder Chief Complaint: Right shoulder Is patient in pain?: Yes (right shoulder) Pain scale (1-10): 4 Allergies prednisone Allergy (Verified 05/26/23 10:27) PREDNISONE INDUCED HYPERGLYCEMIAtramadol Adverse Reaction (Mild, Verified 05/26/23 10:27) Vomitingerythromycin base Adverse Reaction (Verified 05/26/23 10:27) Vomiting Medications fenofibrate nanocrystallized 145 mg tablet 145 mg PO QHS 03/24/17 [History Confirmed 05/21/23] levothyroxine 137 mcg tablet 150 mcg PO DAILY 07/29/17 [History Confirmed 05/21/23] cholecalciferol (vitamin D3) 50 mcg (2,000 unit) capsule 50 mcg PO DAILY 01/18/21 [History Confirmed 05/21/23] magnesium oxide 500 mg PO DAILY 01/18/21 [History Confirmed 05/21/23] potassium 99 mg tablet 99 mg PO DAILY 01/18/21 [History Confirmed 05/21/23] repaglinide 2 mg tablet 2 mg PO DIRECTED 01/18/21 [History Confirmed 05/21/23] cyclobenzaprine 10 mg tablet 10 tablet PO DAILY PRN Muscle Spasm 04/17/21 [History Confirmed 05/21/23] metoprolol succinate 100 mg tablet,extended release 24 hr 100 mg PO DAILY 04/17/21 [History Confirmed 05/21/23] triamterene 37.5 mg-hydrochlorothiazide 25 mg tablet 1 tab PO DAILY 04/17/21 [History Confirmed 05/21/23] zolpidem 10 mg tablet 10 mg PO QHS PRN Sleep 04/17/21 [History Confirmed 05/21/23] insulin degludec 100 unit/mL (3 mL) subcutaneous pen (Tresiba FlexTouch U-100 insulin) 42 unit subcut DAILY 02/28/22 [History Confirmed 05/21/23] meclizine 25 mg tablet 25 mg PO DAILY PRN 02/28/22 [History Confirmed 05/21/23] repaglinide 1 mg tablet 1 mg PO UD PRN diabetes 02/28/22 [History Confirmed 05/21/23] insulin lispro 100 unit/mL subcutaneous pen 1 sliding scale dose subcut USEASDIRECTD 05/26/23 [History Confirmed 05/26/23] PFSH Medical History Arthritis Back pain Chronic kidney disease Chronic neck and back pain CPAP (continuous positive airway pressure) dependence Diabetes Fatigue Fatty liver Former smoker Gastric reflux Hemorrhoids High cholesterol History of IBS History of irregular heartbeat History of renal disease Hypertension Impingement of right shoulder Migraine headache Post-menopausal Right rotator cuff tear Right shoulder pain Shoulder pain Sleep apnea Thyroid disease Urinary tract infection with hematuria Wears glasses Surgical History H/O total knee replacement H/O: hysterectomy S/P cervical spinal fusion S/P cholecystectomy s/p parathyroid S/P revision of total knee S/P right unicompartmental knee replacement S/P total knee arthroplasty Family History Mother Heart diseaseFather Heart disease Social History household members: spouse housing: house Smoking Status: Former smoker pack-years: 10 alcohol intake: never what type of physical activity do you participate in: none do you feel safe at home: Yes HPI right shoulder Details: Parts of this documentation were recorded by a scribe, this documentation accurately reflects the service provided and the decisions made by me, Dr. Sherif Lai MD 05/26/23 1025. BOLIVAR ESCUDERO is a 63 year old F here today for follow-up on the right shoulder pain. The patient wanted to have further discussion on the recovery a nd risks associated with surgery. They do like to hike quite a bit and want to do that as soon as of October and are trying to arrange for the surgery around their vacation schedule. Ortho Exam General General: Yes no acute distress Neurologic: Yes alert and Yes oriented x3 Psychologic: Yes reasonable and appropriate Right Shoulder Skin/Wound: Yes CDI and No ecchymosis Testing: Positive Hawkin's, Neer's, AROM-Forward Elevation 0-180 and AROM- External Rotation at side 0-60; Negative Drop Arm SHOULDER: painful arc, worse in abduction. Supplemental Info MRI/Upper Ext Joint Only(Routine) IMPRESSION: Supraspinatus tendinosis with a tiny linear partial thickness articular surface tear of the anterior distal supraspinatus tendon insertion, compatible with a rim rent tear. Mild hypertrophic acromioclavicular arthrosis with inferior osteophyte formation. Mild subacromial-subdeltoid bursitis. Electronically Signed: Matthew Pollard MD at 10:02 EDT Coding Level of Care Code Off vis,est,level 3 Diagnoses Right rotator cuff tear M75.101 Impingement of right shoulder M25.811 Right shoulder pain M25.511 Assessment and Plan Assessment and Plan (1) Right rotator cuff tear: Status: Acute Plan: 63 F with R shoulder impingement syndrome, small RC tear. We had another long 30 minutes face to face discussion. About risks and benefits, recovery 3 months before going back to [facility] [employer] ([facility]). Should all the patient's questions about the risks pros and cons risks and benefits potential side effects and the physical therapy recovery associate with this as well as the support that she would need after surgery. Patient understands wishes to go ahead with right shoulder arthroscopy, subacromial decompression, rotator cuff repair. We have placed her on the surgical schedule for July she has no further questions or concerns. Pros and cons risks and benefits were discussed with the patient including but not limited to infection, pain, stiffness, bleeding, damage to surrounding structures, neurovascular injury, recurrence or retear, failure or wear of hardware or fixation, instability, fracture, deep vein thrombosis and pulmonary embolism, anesthetic risks, , patient dissatisfaction, need for further surgery and other risks. Patient understood and wished to proceed with surgery, and signed the informed consent documentation. [facility] Medical History (Updated 07/01/23 @ 09:11 by Sabrina Sands) Arthritis Back pain Chronic kidney disease Chronic neck and back pain CPAP (continuous positive airway pressure) dependence Dietary restriction Fatigue Fatty liver Former smoker Gastric reflux High cholesterol History of irregular heartbeat History of renal disease History of steroid therapy Impingement of right shoulder Insulin dependent diabetes mellitus Menieres disease Migraine headache Post-menopausal Right rotator cuff tear Right shoulder pain Shoulder pain Thyroid disease Urinary tract infection with hematuria Wears glasses Home Medications fenofibrate nanocrystallized 145 mg tablet 145 mg PO QHS 03/24/17 [History Last Taken Unknown] levothyroxine 137 mcg tablet 150 mcg PO DAILY 07/29/17 [History Last Taken 07/15/23] cholecalciferol (vitamin D3) 50 mcg (2,000 unit) capsule 50 mcg PO DAILY 01/18/21 [History Last Taken Unknown] magnesium oxide 500 mg PO DAILY 01/18/21 [History Last Taken Unknown] potassium 99 mg tablet 200 mg PO BID 01/18/21 [History Last Taken Unknown] repaglinide 2 mg tablet 2 mg PO DAILY PRN PRN DIABETES 01/18/21 [History Last Taken Unknown] metoprolol succinate 100 mg tablet,extended release 24 hr 100 mg PO DAILY 04/17/21 [History Last Taken 07/23/21 04:30] triamterene 37.5 mg-hydrochlorothiazide 25 mg tablet 1 tab PO DAILY 04/17/21 [H istory Last Taken Unknown] zolpidem 10 mg tablet 10 mg PO QHS PRN Sleep 04/17/21 [History Last Taken Unknown] insulin degludec 100 unit/mL (3 mL) subcutaneous pen (Tresiba FlexTouch U-100 insulin) 42 unit subcut QHS 02/28/22 [History Last Taken 07/14/23 18:30 30 unit] meclizine 25 mg tablet 25 mg PO DAILY PRN dizziness 02/28/22 [History Last Taken Unknown] repaglinide 1 mg tablet 1 mg PO UD PRN diabetes 02/28/22 [History Last Taken Unknown] insulin lispro 100 unit/mL subcutaneous pen 1 sliding scale dose subcut USEASDIRECTD 05/26/23 [History Last Taken Unknown] atorvastatin 20 mg tablet 20 mg PO QHS 07/01/23 [History Last Taken Unknown] lisinopril 5 mg tablet 5 mg PO DAILY 07/01/23 [History Last Taken 07/15/23] omeprazole magnesium 20 mg tablet,delayed release (Prilosec OTC) 20 mg PO DAILY 07/01/23 [History Last Taken 07/15/23] Allergy/AdvReac Type Severity Reaction Status Date / Time prednisone Allergy PREDNISONE Verified 07/15/23 07:29 INDUCED HYPERGLYCEMIA tramadol AdvReac Mild Vomiting Verified 07/15/23 07:29 erythromycin base AdvReac Vomiting Verified 07/15/23 07:29 Family History Mother Heart disease Father Heart disease Surgical History (Updated 07/01/23 @ 09:11 by Sabrina Sands) H/O total knee replacement H/O: hysterectomy S/P cervical spinal fusion S/P cholecystectomy s/p parathyroid S/P revision of total knee S/P right unicompartmental knee replacement S/P total knee arthroplasty Social History household members: spouse housing: house Smoking Status: Former smoker pack-years: 10 alcohol intake: never what type of physical activity do you participate in: none do you feel safe at home: Yes Vital Signs Vital Signs Vital Signs: 07/15/23 07:31 07/15/23 07:31 Temperature 97.5 F L Temperature Source Temporal Pulse Rate 50 L Respiratory Rate 18 Respiratory Pattern Normal Blood Pressure 116/71 Blood Pressure Mean 86 Blood Pressure Source Monitor Blood Pressure Position Semi-Fowlers Blood Pressure Location Left Arm Pulse Ox 97 Oxygen Delivery Method Room Air Weight Weight: 216 lb 0.848 oz Body Mass Index (BMI) 30.1 Results Lab / Micro Data 07/03/23 09:02 Labs: Laboratory Results - last 24 hr 07/15/23 07:27: POC Glucose 146 H
[2023-07-15] MEDS: Cefazolin 2 GM in 0.9% Normal Saline (100mL Bag) 100 ML IV (09:36)
[2023-07-15] MEDS: Epinephrine (1 mg/ml) 1 MG/ML VIAL (10:00)
--- NOTE | 2023-07-15 10:52 | PCM.OPRPT ---
Problems Associated Problem List Diagnoses (1) Right rotator cuff tear: Report of Operation Date of Procedure: 07/15/23 Pre-Operative Diagnosis: right shoulder rotator cuff tear, impingement syndrome Post-Operative Diagnosis: same Surgery/Procedure Performed:: right shoulder arthroscopy, rotator cuff repair, sub acromial decompression Surgeon: Sherif Lai Type of Anesthesia: Block,Regional and General Anesthesiologist: Ramez Julio Estimated Blood Loss (mL): 50 Description of Procedure: Patient brought the operating room theater. Placed supine on the operating room table. General anesthesia induced. 2 g IV Ancef administered prior to the start of the procedure. All bony prominences padded. Axillary roll used. Patient transferred right side up beanbag positioner. SCDs on the legs. Upper extremity prepped and draped in the usual sterile fashion of the chlorhexidine-based prep solution allowing over 3 minutes drying time prior to draping. Preoperative timeout performed to confirm the site patient and surgery. Began by inserting the arthroscope into the intra-articular portion of the shoulder. Used 10 pounds of inline traction with the arm in 45 degrees of abduction. Did a full diagnostic arthroscopy. Cartilage on the glenoid and humeral side were normal. Subscapularis appeared normal as did the long head of the biceps. Axillary recess normal no loose bodies. Fraying of the labrum. Anterior portal created through inside out spinal needle localization just posterior to the biceps tendon through the rotator interval. Exam the full extent of the rotator cuff tendons. There is anterior fraying from the undersurface of the supraspinatus tendon. I marked this with a spinal needle. I then inserted the arthroscope into the subacromial space. I created 2 accessory lateral portals using inside-out spinal needle localization and Arthrex 7 x 7 mm cannulas. Identified the previously identified area of partial-thickness undersurface fraying. Just anterior to this there was also an area of over 50% near complete full-thickness tearing similar to the MRI findings of a rim rent tear, so completed the tear. Tuberosity was debrided to clean and there of any remaining soft tissue. I used the Arthrex power pick instrument to perform multiple trephination's to stimulate bony healing in that area. I then used an arthroscopic high-speed kristi device to do a subacromial decompression for about 4 mm down to flat to margins as there was downsloping anterolateral acromion. The tear was mobile although a small about 1cm AP x 1cm ML. I used inverted horizontal mattress using the Arthrex fiber tape suture. I then used a fiber link suture in the middle of that just medial to the first stitch, to create a loop 'luggage tag' type suture. I then put all 3's sutures into an Arthrex 4.75 mm bio composite swivel lock anchor. I used the punch down to the second line just lateral to the footprint and then secured the anchor down appropriately fixating the tear. Sutures were cut short tear was stably fixed good repair with appropriate tension on the sutures. Arthroscopy pictures were taken and saved into the system throughout the case. Case terminated shoulder thoroughly irrigated. Portal sites closed with 3-0 Monocryl suture. Steri-Strips applied followed by Adaptic 4 x 4 gauze ABD dressing and cloth tape with abduction pillow sling for the upper extremity. Patient woken up from a general anesthetic transferred off the operating table and taken to postanesthetic care unit in stable condition. All sponge and counts were correct. cpt [id number]? Complications none Admit VTE Documentation VTE Present on Admission: No VTE Mechan Device Prophylaxis: SCD's VTE Pharm Prophylaxis ordered?: No Reason prophylaxis not ordered:: Treatment Not Indicated Procedures Musculoskeletal 20xxx-29xxx: Other Procedure See Report
--- NOTE | 2023-07-15 11:01 | DCINST_ITS ---
Discharge Instructions Diet Discharge Diet: No restrictions Activity Ice area for (Minutes): 10 Additional Activity Instructions:: pendulums 4x/day, ok to remove sling for hand wrist elbow rom Dressing / Incision Call your doctor if your incision/area has: Continuous Slow Oozing, Sudden Increased Bleeding, Increased Pain/ Swelling, Increased Redness, Foul Smelling Discharge and Swelling at the incision site Remove Dressing in: do not remove dressing Follow Up Care Please Follow Up With: Sherif Lai MD When: 2 days Test Results: Test results from this visit will be discussed in further detail at your follow- up appointment, if applicable. Discharge Plan Admission Attending Provider: Sherif Lai Primary Care Provider: Rohit Torres Discharge Orders/Prescriptions Prescriptions: New oxycodone-acetaminophen [Percocet] 5-325 mg tablet 1 tab PO Q8H MDD 6 PRN (Reason: pain) 5 Days Qty: 30 0RF No Action repaglinide 2 mg tablet 2 mg PO DAILY PRN PRN (Reason: DIABETES) cholecalciferol (vitamin D3) 50 mcg (2,000 unit) capsule 50 mcg PO DAILY potassium 99 mg tablet 200 mg PO BID magnesium oxide 250 mg magnesium tablet 500 mg PO DAILY repaglinide 1 mg tablet 1 mg PO UD PRN (Reason: diabetes) Rx Instructions: pt takes as directed, fluctuates triamterene-hydrochlorothiazid 37.5-25 mg tablet 1 tab PO DAILY Patient Comments: TAKE 1&1 2 TABLET BY MOUTH ONCE DAILY zolpidem 10 mg tablet 10 mg PO QHS PRN (Reason: Sleep) Patient Comments: TAKE 1 2 (ONE HALF) TABLET BY MOUTH AT BEDTIME NEEDED FOR SLEEP metoprolol succinate 100 mg tablet extended release 24 hr 100 mg PO DAILY meclizine 25 mg tablet 25 mg PO DAILY PRN (Reason: dizziness) insulin lispro 100 unit/mL insulin pen 1 sliding scale dose subcut USEASDIRECTD levothyroxine 137 MCG tablet 150 mcg PO DAILY Patient Comments: thyroid fenofibrate nanocrystallized 145 MG tablet 145 mg PO QHS insulin degludec [Tresiba FlexTouch U-100] 100 unit/mL (3 mL) insulin pen 42 unit SUBCUT QHS Rx Instructions: pt states fluctuates depending on bs. lisinopril 5 mg tablet 5 mg PO DAILY atorvastatin 20 mg tablet 20 mg PO QHS omeprazole magnesium [Prilosec OTC] 20 mg tablet,delayed release (DR/EC) 20 mg PO DAILY Referrals / Follow Up: Rohit Torres MD [Primary Care Provider] - Sherif Lai MD [Med Staff - Active Staff] - Disposition Disposition (needs filled in before D/C Order can be placed): Home, Self Care
[2023-07-15 11:55] LABS: Bedside Glucose 145 mg/dL (74-106)
[2023-07-15] MEDS: Oxycodone/Apap 5/325 Tablet PO (14:27)
== END 2023-07-15 15:01 | disposition home or self-care (01) ==
LOC: SDC 07:00 → AC 07:01
PROVIDERS: Anesthesiology; PCP Family Medicine; Referring Provider Orthopaedic Surgery Sports Medicine; Visit Provider Orthopaedic Surgery Sports Medicine
PROC: (CPT 29805; principal; 2023-07-15 08:45)
DX: M75.101 Unspecified rotator cuff tear or rupture of right shoulder, not specified as traumatic (principal); E11.22 Type 2 diabetes mellitus with diabetic chronic kidney disease; Z79.4 Long term (current) use of insulin; N18.9 Chronic kidney disease, unspecified; I12.9 Hypertensive chronic kidney disease with stage 1 through stage 4 chronic kidney disease, or unspecified chronic kidney disease; E78.00 Pure hypercholesterolemia, unspecified; E07.9 Disorder of thyroid, unspecified; M25.811 Other specified joint disorders, right shoulder; Z79.890 Hormone replacement therapy; Z79.899 Other long term (current) drug therapy; Z87.891 Personal history of nicotine dependence
CPT/HCPCS: 29827; 29826; 01630; 64415; 36415; 82962; 84443; 85027; 93005; J7120; J2405

== ENCOUNTER → 2023-08-31 | Outpatient (CLI) | payer BC, SELFPAY ==
--- NOTE | 2023-08-31 10:27 | BI_ITS ---
MAMMOGRAPHY - BILATERAL SCREENING REASON FOR EXAM: Female, 63 years old. Routine annual screening examination. PERTINENT HISTORY: Non-contributory. TECHNIQUE: Digital bilateral breast serene (3D mammographic acquisition) in the CC and MLO projections. 2-D mediolateral oblique (MLO) and craniocaudad (CC) views of both breasts were obtained. CAD: Full Field Digital Mammography with Computer Added Detection was performed. COMPARISON: Comparison is made with prior study dated August 14, 2022 and August 13, 2021. FINDINGS: Breast Composition: The breasts are heterogeneously dense, which may obscure small masses. There are no dominant masses or suspicious calcifications. Stable small benign-appearing bilateral axillary lymph nodes. No other significant abnormalities are identified. There has been no significant change since the prior study. BI/SCRN MAMM (CAD)W/SERENE BILAT IMPRESSION: Stable bilateral screening mammogram. Yearly follow-up mammogram recommended. (A) ASSESSMENT CATEGORY: BIRADS Category 2: Benign. A letter regarding these results will be sent to the patient by the facility within 30 days. Approximately 10% of breast cancers are not detected by mammography. A normal mammogram should not delay biopsy of a clinically suspicious abnormality. [id number] Electronically Signed: Jorje Mayo MD at 14:50 EST ,
== END | disposition home or self-care (01) ==
LOC: OPBI 10:27
PROVIDERS: PCP Family Medicine; Referring Provider Family Medicine; Visit Provider Family Medicine
DX: Z12.31 Encounter for screening mammogram for malignant neoplasm of breast (principal)
CPT/HCPCS: 77063; 77067

== ENCOUNTER → 2023-09-15 | Outpatient (CLI) | payer BC, SELFPAY ==
--- OUTSIDE RECORDS SUMMARY | 2023-09-15 07:06 | XMS RPT_ITS | CCD ---
Author Name Unknown Address [address] [place] [address] Organization [facility] Care Team Providers Care Cotton Weigher Name Role Phone Mychal العراقي Unavailable MONICA FELIX Unavailable Unavailable JORDY NIEVES Unavailable Unavailable MONICA FELIX Unavailable Unavailable JORDY NIEVES Unavailable Unavailable Julia Ramos Unavailable Unavailable Unavailable Unavailable Unavailable [facility] Unavailable Unav ailable Unavailable Unavailable Debra, Ms. Cm Martinez Attending Phuong Doss, Ms. Cm Martinez Referring Jordy Dyer Primary Care Unavailable Jordy Nieves Primary Care Unavailable Debra, Ms. Cm Martinez Attending Phuong Doss, Ms. Cm Martinez Referring Jordy Dyer Primary Care Unavailable Debra, Ms. Cm Martinez Attending Phuong Doss, MsBradly Martinez Referring CHANDAN Nixon Attending Unavailable CM DOSS Attending Unavailable JORDY BAIRES Primary Care Unavailabl e Allergies Allergy Classification Reported Allergen(s) Allergy Type Date of Onset Reaction(s) Facility (1 source) erythromycin Drug Allergy 7 [facility] Work Phone: (12 sources) Erythromycin Derivatives; Translations: [Erythromycin Derivatives] Allergy to drug (finding) Nausea, Vomiting [facility]-Rheumatology- [facility] [address] [facility] Work Phone: (2 sources) Erythromycin; Translations: [ERYTHROMYCIN] Drug Allergy [address] [facility] (2 sources) traMADol; Translations: [TRAMADOL] Drug Allergy [address] [facility] Medications Completed/Discontinued Medications Medication Drug Class(es) Dates Sig (Normalized) Sig (Original) acetaminophen 325 mg / oxyCODONE hydrochloride 5 mg oral tablet (13 sources) Opioid Agonist Start: 04-15-2017 take 1-2 tablets by mouth every eight hours as needed for pain PERCOCET 5-325 MG TABS 1-2 po q8h as needed pain OXYCODONE-ACETAMIN OPHEN [id number] Mychal Banda Malcom Problems Active Problems Problem Classification Problem Date Documented Date Episodic/Chronic Abdominal pain (12 sources) Epigastric pain; Translations: [Abdominal pain, epigastric] Episodic Anxiety disorders (12 sources) Anxiety; Translations: [Anxiety state, unspecified] Chronic Complications of surgical procedures or medical care (12 sources) Postoperative hypothyroidism; Translations: [Postsurgical hypothyroidism] Chronic Diabetes mellitus without complication (20 sources) Insulin treated type 2 diabetes mellitus; Translations: [Diabetes mellitus] Onset: 05-27-2023 Chronic Past or Other Problems Problem Classification Problem Date Documented Da te Episodic/Chronic Joint disorders and dislocations; trauma-related (1 source) Other tear of medial meniscus, current injury, right knee, initial encounter; Translations: [Other tear of medial meniscus, current injury, right knee, initial encounter] Onset: 02-16-2017 02-16-2017 Episodic Other non-traumatic joint disorders (1 source) Knee pain; Translations: [Pain in right knee] Onset: 02-16-2017 02-16-2017 Episodic Unclassified (1 source) E03.9 E11.9 G47.33 Z01.818 Onset: 03-04-2018 NEGATED: Highlighted row has not occurred!Residual codes; unclassified (17 sources) Disease Episodic Results Test Name Value Interpretation Reference Range Facil ity Vital Signs Date Time Vital Sign Value Performing Clinician Teresa rivera 03-25-2023 11:17-0400 Body mass index (BMI) [Ratio] 29.29 kg/m2 Cm Doss APRN-PESTICIDE CONTROL INSPECTOR Work Phone: AU-Cwyxoxbbdugwu-C [place] [address] DO Work Phone: 03-25-2023 11:17-0400 Body surface area Derived from formula 2.15 m2 Cm Doss APRN-PESTICIDE CONTROL INSPECTOR Work Phone: DY-Hsscxbplvtske-M [place] [address] DO Work Phone: 03-25-2023 11:17-0400 Body weight 95.26 kg Cm Doss APRN-PESTICIDE CONTROL INSPECTOR Work Phone: HO-Mvvyobilatfif-Q [place] [address] DO Work Phone: 03-25-2023 11:17-0400 Diastolic blood pressure 74 mm[Hg] Cm Doss APRN-PESTICIDE CONTROL INSPECTOR Work Phone: CV-Ymjilzvbyxoeu-H [place] [address] DO Work Phone: 03-25-2023 11:17-0400 Heart rate 56 /min Cm Doss APRN-PESTICIDE CONTROL INSPECTOR Work Phone: WS-Svthgagywssji-H [place] [address] DO Work Phone: 03-25-2023 11:17-0400 SaO2% (BldA) [Mass fraction] 95 % Cm Doss APRN-PESTICIDE CONTROL INSPECTOR Work Phone: CU-Feoufcmlqhbdz-C [place] [address] DO Work Phone: 03-25-2023 11:17-0400 Systolic blood pressure 144 mm[Hg] Cm Doss APRN-PESTICIDE CONTROL INSPECTOR Work Phone: HF-Eazmiwtuhrisr-M [place] [address] DO Work Phone: 03-25-2023 11:16-0400 Body mass index (BMI) [Ratio] 29.29 kg/m2 Cm Doss APRN-PESTICIDE CONTROL INSPECTOR Work Phone: MZ-Dsrmyedtkhgug-W [place] [address] DO Work Phone: 03-25-2023 11:16-0400 Body surface area Derived from formula 2.15 m2 Cm Doss APRN-PESTICIDE CONTROL INSPECTOR Work Phone: LO-Yybeldxnmkykq-R [place] [address] DO Work Phone: 03-25-2023 11:16-0400 Body weight 95.26 kg Cm Doss SUPERVISOR [employer]ER [employer] DIVISION-PESTICIDE CONTROL INSPECTOR Work Phone: AY-Rezjmnbhgdbrw-H [place] [address] DO Work Phone: 11-13-2022 11:00-0400 Body mass index (BMI) [Ratio] 30.72 kg/m2 Cm Doss SUPERVISOR [employer] DIVISION-PESTICIDE CONTROL INSPECTOR Work Phone: GT-Egzkbvya-Utjxxv n [facility] [address] Work Phone: 11-13-2022 11:00-0400 Body surface area Derived from formula 2.2 m2 Cm Doss SUPERVISOR [employer] DIVISION-PESTICIDE CONTROL INSPECTOR Work Phone: NU-Ymcbnlgp-Zsdeea n [facility] [address] Work Phone: 11-13-2022 11:00-0400 Body temperature 97.2 [degF] Cm Doss SUPERVISOR C[employer]ER [employer] DIVISION-PESTICIDE CONTROL INSPECTOR Work Phone: DB-Pkopyini-Lpxffj [facility] [address] Work Phone: 11-13-2022 11:00-0400 Body weight 99.91 kg Cm Doss SUPERVISOR C[employer] DIVISION-PESTICIDE CONTROL INSPECTOR Work Phone: AR-Yqxsbbsv-Lwyfqv n [facility] [address] Work Phone: 11-13-2022 11:00-0400 Diastolic blood pressure 80 mm[Hg] Cm Doss SUPERVISOR C[employer]DS DIVISION-PESTICIDE CONTROL INSPECTOR Work Phone: AL-Gouiwnok-Veftti [facility] [address] Work Phone: 11-13-2022 11:00-0400 Heart rate 61 /min Cm Doss SUPERVISOR [employer] DIVISION-PESTICIDE CONTROL INSPECTOR Work Phone: NX-Wjgkzoib-Dpueny [facility] [address] Work Phone: 11-13-2022 11:00-0400 Respiratory rate 18 /min Cm Doss SUPERVISOR [employer] DIVISION-PESTICIDE CONTROL INSPECTOR Work Phone: MI-Cyzbclvx-Dxyosb n [facility] [address] Work Phone: 11-13-2022 11:00-0400 Systolic blood pressure 142 mm[Hg] Cm Doss SUPERVISOR C[employer] DIVISION-PESTICIDE CONTROL INSPECTOR Work Phone: BD-Hheqbwps-Fasvpb n [facility] [address] Work Phone: 11-13-2022 11:00-0400 0 1 Cm Fetkamillaandrew SUPERVISOR [employer] DIVISION-PESTICIDE CONTROL INSPECTOR Work Phone: YH-Ncizwsem-Vijmng n [facility] [address] Work Phone: Encounters Encounter Date Encounter Type Care Provider Facility Start: 08-25-2023 End: 08-25-2023 ambulatory [facility] Ambulatory Start: 05-28-2023 End: 05-29-2023 ambulatory CHANDAN [facility] Start: 03-25-2023 Office outpatient visit 40 minutes Cm Debra SUPERVISOR C[employer] DIVISION-PESTICIDE CONTROL INSPECTOR Work Phone: QK-Owhqpocknasby-Mctua [place] 100 DO Work Phone: Start: 03-25-2023 ambulatory Ms. Cm [facility] Facility:[id number] Start: 11-18-2022 AUDIT Cm Kitchen r SUPERVISOR CUST[employer]DS DIVISION-PESTICIDE CONTROL INSPECTOR Work Phone: VK-Vcekppdknaijw-Ytxtl in [facility] Work Phone: Start: 11-14-2022 AUDIT Marjorie Ariza i SUPERVISOR CUSTOMER [employer]DS DIVISION-PESTICIDE CONTROL INSPECTOR Work Phone: PJ-Zzrqvdobzptzo-Htaud in [facility] [address] DO Work Phone: Start: 11-13-2022 Office outpatient visit 40 minutes Cm Sandersoner SUPERVISOR C[employer]ER [employer]DS DIVISION-PESTICIDE CONTROL INSPECTOR Work Phone: GX-Zyjiysat-Vzuriwo [facility] [address] Work Phone: Start: 11-13-2022 ambulatory Jordy Nieves Facil ity:[id number] Start: 09-11-2022 Rx Renewal Saúl Ng ch PharmD Work Phone: Pharmacists-[facility] [address] [place] Work Phone: Start: 06-06-2022 Office outpatient visit 25 minutes Cm Fetzner SUPERVISOR CUSTOMER [employer]DS DIVISION-PESTICIDE CONTROL INSPECTOR Work Phone: HK-Qvjsxhwt-Ewhtlog [facility] [address] Work Phone: Start: 06-06-2022 ambulatory Jordy Nieves Facil ity:[id number] Start: 12-03-2021 Office outpatient visit 25 minutes Cm Fetzner SUPERVISOR CUST[employer]ER [employer]DS DIVISION-PESTICIDE CONTROL INSPECTOR Work Phone: DN-Ctibzvch-Nswqoni [facility] [address] Work Phone: Start: 05-16-2021 Office outpatient visit 25 minutes Cm Fetzner SUPERVISOR CUSTOMER [employer]DS DIVISION-PESTICIDE CONTROL INSPECTOR Work Phone: FW-Krmbbrhehbrus-Uytlx in [facility] Work Phone: Start: 05-16-2021 Patient encounter procedure Cm Fetzner SUPERVISOR CUSTOMER [employer]ORDS DIVISION-PESTICIDE CONTROL INSPECTOR Work Phone: LR-Blkubxxe-Fblkpym [facility] [address] Work Phone: Start: 10-04-2019 Patient encounter procedure Julia Shulemovich OR-Ymjbhielllms-Myblvq n [facility] [address] Work Phone: Start: 06-14-2019 Patient encounter procedure Julia Shulemovich ZQ-Hitpqclvlzzm-Wscsip n [facility] [address] Work Phone: Start: 02-15-2019 Patient encounter procedure Julia Shulemovich HM-Xfvtqqjbfwfp-Afqqtl n [facility] [address] Work Phone: Start: 11-08-2018 Patient encounter procedure Julia Shulemovich XH-Yowsqhxqkfdc-Bkezrc n [facility] [address] Work Phone: Start: 07-23-2018 Patient encounter procedure Julia Ramos RF-Xtbxngicuwqu-Hdknwu n [facility] [address] Work Phone: Start: 03-29-2018 Patient encounter procedure Julia Ramos DD-Khocxmfkqirx-Ypgjsr n [facility] [address] Work Phone: Start: 03-04-2018 End: 03-05-2018 Patient encounter MONICA FELIX Facility:[place] Start: 01-22-2018 Patient encounter procedure Julia Ramos OG-Fwviebhoqzbi-Cewgmb n [facility] [address] Work Phone: Start: 12-26-2017 End: 12-26-2017 Patient encounter MONICA FELIX Facility:[place] Start: 11-12-2017 Patient encounter procedure Julia Ramos GM-Ubowopekavth-Tvzxms n [facility] [address] Work Phone: Procedures Date Procedure Procedure Detail Performing Clinician Start: 10-04-2019 Comprehensive metabo lic 2000 panel Julia Ramos Start: 10-04-2019 Hemoglobin glycosyla silvia a1c Julia Ramos Start: 02-16-2017 End: 04-01-2017 Mri any jt lower extrem w/o contrast matrl Mychal العراقي Work Phone: Start: 02-16-2017 End: 04-01-2017 Radiologic exam knee complete 4/more views Mychal العراقي Work Phone: Plan of Treatment Date Care Activity Detail Author Start: 08-25-2023 FUV, Provider: Cm Doss, Status: Pen, Time: 10:30 AM FUV, Provider: Cm Doss, Status: Pen, Time: 10:30 AM XT-Xpfoidtsdunwb-Lhck [place] [address] DO Work Phone: Start: 03-13-2023 FUV, Provider: Cm Doss, Status: Pen, Time: 10:15 AM FUV, Provider: Cm Doss, Status: Pen, Time: 10:15 AM JS-Efulbszp-Ydgowzo [facility] [address] Work Phone: Start: 11-13-2022 FUV, Provider: Cm Doss, Status: Pen, Time: 11:00 AM FUV, Provider: Cm Doss, Status: Pen, Time: 11:00 AM [facility] [address] Work Phone: Start: 06-06-2022 FUV, Provider: Cm Doss, Status: Pen, Time: 10:15 AM FUV, Provider: Cm Doss, Status: Pen, Time: 10:15 AM TC[facility]giooi[facility] [address] Work Phone: Start: 08-06-2021 FUV, Provider: Cm Doss, Status: Pen, Time: 9:00 AM FUV, Provider: Cm Doss, Status: Pen, Time: 9:00 AM TT[facility]Whbhcapc[facility] [address] Work Phone: Start: 01-06-2020 Comprehensive metabolic 2000 panel Comprehensive Metabolic Panel [facility] Work Phone: Start: 01-06-2020 HbA1c (Bld) [Mass fraction] Hemoglobin A1C [facility] Work Phone: Start: 06-17-2017 End: 06-17-2017 Appointment [facility] Work Phone: Start: 05-13-2017 End: 05-13-2017 Radiologic exam knee complete 4/more views X-Ray, Knee [facility] Work Phone: Start: 02-16-2017 End: 04-01-2017 Mri any jt lower extrem w/o contrast matrl MRI Joint Lower Extremity [facility] Work Phone: Start: 02-16-2017 End: 04-01-2017 Radiologic exam knee complete 4/more views X-Ray, Knee [facility] Work Phone: Patient Education KNEE%20PAIN [facility] Work Phone: NEGATED: Highlighted row has been ruled out! Planned Goals not documented [facility]repqw[facility] Work Phone: Payers Date Payer Category Payer Unknown [id number] 2022 Unknown [id number] 2017 Unknown [id number] 1960 Unknown [id number] [id number] 1960 Unknown [id number] 2.16. [id number] 1958 Unknown [id number] 2.16. [id number] 1958 Unknown [id number] 1958 Unknown [id number] Unknown Social History Date Type Detail Facility Former smoker Former smoker PZ-Rwqnkjii-U [facility] [address] Work Phone: NEGATED: Highlighted row - - MG- Rheumatology-[facility] [address] [facility] Work Phone: Medical Equipment Procedure Code Equipment Code Equipment Origin al Text Equipment Identifier Dates Easy Touch Pen [place] 31G X 6 MM take Insulin 1 x/ day Quantity: 1 Refills: 3 Julia Ramos MD Start : 15-Sep-2016 Active 100 Unit Box Start: 09-15-2016 FreeStyle Lancet s Test blood glucose three times /day Quantity: 3 Refills: 2 Julia Ramos MD Start : 10-Nov-2018 Active 100 Unit Box Start: 11-10-2018 FreeStyle Lancet s TEST BLOOD SUGARS 3 TIMES A DAY DIRECTED Quantity: 3 Refills: 3 Julia Ramos MD Start : 07-Jun-2016 Active 100 Unit Box Start: 06-07-2016 FreeStyle Lite T est In Vitro Strip TEST BLOOD SUGARS 3 TIMES A DAY DIRECTED Quantity: 3 Refills: 3 Julia Ramos MD Start : 07-Jun-2016 Active 100 Strip Box Start: 06-07-2016 FreeStyle Lite T est In Vitro Strip TEST 3 TIMES DAILY. Quantity: 3 Refills: 2 Julia Ramos MD Start : 10-Nov-2018 Active 100 Strip Box Start: 11-10-2018 ReliOn Mini Pen [place] 31G X 6 MM USE WITH INJECTION OF Insulin 3-4 /day Quantity: 3 Refills: 5 Julia Ramos MD Start : 11-Aug-2019 Active 50 Unit Box Start: 08-11-2019 Easy Touch Pen [place] 31G X 6 MM take Insulin 1 x/ day Quantity: 1 Refills: 3 Julia Ramos MD Start : 15-Sep-2016 Active 100 Unit Box Start: 09-15-2016 FreeStyle Lancet s Test blood glucose three times /day Quantity: 3 Refills: 2 Julia Ramos MD Start : 10-Nov-2018 Active 100 Unit Box Start: 11-10-2018 FreeStyle Lancet s TEST BLOOD SUGARS 3 TIMES A DAY DIRECTED Quantity: 3 Refills: 3 Julia Ramos MD Start : 07-Jun-2016 Active 100 Unit Box Start: 06-07-2016 FreeStyle Lite T est In Vitro Strip TEST BLOOD SUGARS 3 TIMES A DAY DIRECTED Quantity: 3 Refills: 3 Julia Ramos MD Start : 07-Jun-2016 Active 100 Strip Box Start: 06-07-2016 FreeStyle Lite T est In Vitro Strip TEST 3 TIMES DAILY. Quantity: 3 Refills: 2 Julia Ramos MD Start : 10-Nov-2018 Active 100 Strip Box Start: 11-10-2018 ReliOn Mini Pen [place] 31G X 6 MM USE WITH INJECTION OF Insulin 3-4 /day Quantity: 3 Refills: 5 Julia Ramos MD Start : 11-Aug-2019 Active 50 Unit Box Start: 08-11-2019 Functional Status Date Assessment Result Facility NEGATED: Highlighted row Functional performance Functional status health issues are not documented Disease [facility] [address] [facility] Work Phone: Mental Status Date Assessment Result Facility NEGATED: Highlighted row Cognitive function [Interpretation] Cognitive status health issues are not documented Disease HM[facility]giwltqyxclb-[facility] [address] Work Phone: History of Present illness Narrative 05-10-2022 Note Date & Type Note Facility 05-10-2022 History of Present illness Narrative The patient is presenting here today for a follow up of DM Type 2. History of steroid induced diabetes.Known complications include: HTN, HPLHistory of chronic pancreatitisLast visit with me revious A1c 6.4% on 10/29/2022. Previous A1c 6.4% on 05/2022.Since last visit, she is not happy with elevated sugars.Feels sometimes the repaglinide helps immediately and other times feels it does not help at allLast night she had rice with dinner and took 6 units of insulin and repaglinide and was still high this morning.She continues intermittent steroid injections but thinks she won't need another for awhileHas been less activeHad to stop metformin due to constipation.Has not been taking statinHistorical:Farxiga- excessive urination, dehydrationmetformin- constipationCurrent diabetes regimen is as follows:Tresiba 40 units dailyrepaglinide 2mg- with high carb meal 2 tablets and with elevated sugar at dinner. If BS still elevated at bedtime > 150, will take 1 mg tablet.Uses intermittent mealtime insulin (unclear which one)The patient is currently checking the blood glucose 2-4 times per dayMeter downloaded in office todayFastin-168Pre dinner: 102-159Bedtime: 121-218Hypoglycemia frequency: DeniesHypoglycemia awareness: YesRegarding symptoms of hyperglycemia, the patient is not experiencing any symptoms such as polyuria, polydipsia, nocturia or rapid weight loss or blurry vision. The patient comes into the office today with highs in the eveningShe also has history of hypothyroidismShe is currently taking levothyroxine 150 mcg dailyTakes appropriately BA[facility]cnpnji[facility] [address] Work Phone: History of Present illness Narrative 05-10-2022 Note Date & Type Note Facility 05-10-2022 History of Present illness Narrative The patient is presenting here today for a follow up of DM Type 2. History of steroid induced diabetes.Known complications include: HTN, HPLHistory of chronic pancreatitisLast visit with ia revious A1c 6.4% on 10/29/2022. Previous A1c 6.4% on 05/2022.Since last visit, she is not happy with elevated sugars.Feels sometimes the repaglinide helps immediately and other times feels it does not help at allLast night she had rice with dinner and took 6 units of insulin and repaglinide and was still high this morning.She continues intermittent steroid injections but thinks she won't need another for awhileHas been less activeHad to stop metformin due to constipation.Has not been taking statinHistorical:Farxiga- excessive urination, dehydrationmetformin- constipationCurrent diabetes regimen is as follows:Tresiba 40 units dailyrepaglinide 2mg- with high carb meal 2 tablets and with elevated sugar at dinner. If BS still elevated at bedtime > 150, will take 1 mg tablet.Uses intermittent mealtime insulin (unclear which one)The patient is currently checking the blood glucose 2-4 times per dayMeter downloaded in office todayFastin-168Pre dinner: 102-159Bedtime: 121-218Hypoglycemia frequency: DeniesHypoglycemia awareness: YesRegarding symptoms of hyperglycemia, the patient is not experiencing any symptoms such as polyuria, polydipsia, nocturia or rapid weight loss or blurry vision. The patient comes into the office today with highs in the eveningShe also has history of hypothyroidismShe is currently taking levothyroxine 150 mcg dailyTakes appropriately VJ[facility]dgdvnktprqid[facility] Work Phone: History of Present illness Narrative 05-10-2022 Note Date & Type Note Facility 05-10-2022 History of Present illness Narrative The patient is presenting here today for a follow up of DM Type 2. History of steroid induced diabetes.Known complications include: HTN, HPLHistory of chronic pancreatitisLast visit with ia revious A1c 6.6% Previous A1c 6.4% on 10/29/2022.c peptide 3.7 in 02/2023, BS 115Since last visit, she is not happy with elevated A6jRcwjs sometimes the repaglinide helps immediately and other times feels it does not help at allReports her blood sugars are fantastic right now. She is not using repaglinide as muchHas not needed Lispro as muchHad more stress in January and didn't have much of an appetiteShe is eating a final inspector shuttle lunchShe has lost 10 lbs.She restarted rosuvastatin 3x per weekShe reports elevated blood sugars and she was not able to get them downShe was requiring more insulinShe was doing ok on the rosuvastatinHistorical:Farxiga- excessive urination, dehydrationmetformin- constipationCurrent diabetes regimen is as follows:Tresiba 42 units dailyrepaglinide 2mg- with high carb meal 2 tablets and with elevated sugar at dinner. If BS still elevated at bedtime > 150, will take 1 mg tablet.Lispro per sliding scaleIf Blood Sugar is < 130 add 0 unitsIf Blood Sugar is 131-160 add 5 unitsIf Blood Sugar is 161-200 add 6 unitsIf Blood Sugar is 201-250 add 8 unitsIf Blood Sugar is 251 and above add 10 unitsShe is often taking 3-6 units as needed, taking maybe once every couple daysThe patient is currently checking the blood glucose 2-4 times per daySugars reviewed in office today.Hypoglycemia frequency: DeniesHypoglycemia awareness: YesRegarding symptoms of hyperglycemia, the patient is not experiencing any symptoms such as polyuria, polydipsia, nocturia or rapid weight loss or blurry vision. The patient comes into the office today without concerns.She also has history of hypothyroidismShe is currently taking levothyroxine 150 mcg dailyTakes appropriately PU-Eozlyheagvorv-Pgdbpay rojesse 100 DO Work Phone: History of Present illness Narrative 11-08-2021 Note Date & Type Note Facility 11-08-2021 History of Present illness Narrative The patient is presenting here today for a follow up of DM Type 2. History of steroid induced diabetes.Known complications include: HTN, HPLHistory of chronic pancreatitisLast visit with me revious A1c 6.4% today. Previous A1c 6.6% on 11/26/2021.Since last visit, reports more hyperglycemia.She gets epidurals and facet injectionsMay need Humalog with steroids or will give when BG above 200 in eveningHistorical:Farxiga- excessive urination, dehydrationCurrent diabetes regimen is as follows:Tresiba 42 units daily (self increased)repaglinide 2mg- with high carb meal 2 tablets and with elevated sugar at dinner. If BS still elevated at bedtime > 150, will take 1 mg tablet.The patient is currently checking the blood glucose 3 times per dayMeter downloaded in office todayFastin-163Pre dinner: 90-135Bedtime: 120-209Hypoglycemia frequency: DeniesHypoglycemia awareness: YesRegarding symptoms of hyperglycemia, the patient is not experiencing any symptoms such as polyuria, polydipsia, nocturia or rapid weight loss or blurry vision. The patient comes into the office today with highs at bedtime.She also has history of hypothyroidismShe is currently taking levothyroxine 150 mcg dailyTakes appropriately FE-[facility]ysjpla-[facility]ntmlzBro[facility]us [facility] [address] Work Phone: History of Present illness Narrative 08-20-2021 Note Date & Type Note Facility 08-20-2021 History of Present illness Narrative The patient is presenting here today for a follow up of DM Type 2. History of steroid induced diabetes.Known complications include: HTN, HPLLast visit with ia 08/20/2021revious A1c 6.6% on 11/26/2021 (outside labs) Previous A1c 6.5% on May 14, 2021.Since last visit, she is a little upset about her last A1cShe gets epidurals and facet injectionsLast facet injection was end of October, she noted high valuesShe ended up using sliding scale Humalog as neededHistorical:Farxiga- excessive urination, dehydrationCurrent diabetes regimen is as follows:Tresiba 40 units dailyrepaglinide 2mg- with high carb meal 2 tablets and with elevated sugar at dinner. If BS still elevated at bedtime > 150, will take 1 mg tablet.The patient is currently checking the blood glucose 3 times per dayMeter downloaded in office todayFastin-140Pre dinner: 82-125Bedtime: 94-178Hypoglycemia frequency: None notedHypoglycemia awareness: YesRegarding symptoms of hyperglycemia, the patient is not experiencing any symptoms such as polyuria, polydipsia, nocturia or rapid weight loss or blurry vision. The patient comes into the office today without complaints.Last urine albumin: 11/26/2021Last LDL: 2She also has history of hypothyroidismShe is currently taking levothyroxine 150 mcg dailyTakes appropriately [facility] [address] Work Phone: History of Present illness Narrative 10-08-2020 Note Date & Type Note Facility 10-08-2020 History of Present illness Narrative The patient is presenting here today for a follow up of DM Type . Initial diagnosis with diabetes was .Known complications include: retinopathy, peripheral neuropathy, nephropathy, CAD s/p , CKD, CVAPatient of Dr. Jj Laurent and last seen October 2020This is the first visit with meA1c 6.5% on May 14, 2021. Previous A1c 6.1% October 2020.Since last visit, Current diabetes regimen is as follows:Levemir 44 units daily repaglinideThe patient is/is not currently checking the blood glucose times per dayHypoglycemia frequency: Hypoglycemia awareness: Regarding symptoms of hyperglycemia, the patient is not experiencing any symptoms such as polyuria, polydipsia, nocturia or rapid weight loss or blurry vision. The patient comes into the office today .Last foot exam: Last eye exam:Last urine albumin: 1Last LDL: 10/31/2020he also has history of hypothyroidismshe is currently taking levothyroxine 150 mcg daily Takes [facility] [address] Work Phone: History of Present illness Narrative 10-08-2020 Note Date & Type Note Facility 10-08-2020 History of Present illness Narrative The patient is presenting here today for a follow up of DM Type 2. History of steroid induced diabetes.Known complications include: HTN, HPLPatient of Dr. Jj Laurent and last seen October 2020This is the first visit with meA1c 6.5% on May 14, 2021. Previous A1c 6.1% October 2020.Since last visit, she was slightly upset by her A1c. She thought it would have been lower.Current diabetes regimen is as follows:Levemir 44 units daily takes at bedtimerepaglinide 2mg, 2-3 tablets and then is still high take additional 1 mg with bedtime.The patient is currently checking the blood glucose 3-4 times per dayFastin-136Pre dinner: 117-150Bedtime: 130-186Hypoglycemia frequency: DeniesHypoglycemia awareness: YesRegarding symptoms of hyperglycemia, the patient is not experiencing any symptoms such as polyuria, polydipsia, nocturia or rapid weight loss or blurry vision. The patient comes into the office today without complaints.Last urine albumin: 05/14/2021ast LDL: 10/31/2020he also has history of hypothyroidismshe is currently taking levothyroxine 150 mcg dailyTakes appropriately [facility] Work Phone: Summary Purpose Family History No Family History Records Found Mother Name Dates Details Family history of coronary a rtery disease(V17.3, Z82.49) Status:Active Father Name Dates Details Family history of coronary a rtery disease(V17.3, Z82.49) Status:Active Mother Name Dates Details Family history of coronary a rtery disease(V17.3, Z82.49) Status:Active Father Name Dates Details Family history of coronary a rtery disease(V17.3, Z82.49) Status:Active Unknown Family Member Name Dates Details Family history of coronary a rtery disease: Mother, Father(V17.3, Z82.49) Status:Active Unknown Family Member Name Dates Details Family history of coronary a rtery disease: Mother, Father(V17.3, Z82.49) Status:Active Unknown Family Member Name Dates Details Family history of coronary a rtery disease: Mother, Father(V17.3, Z82.49) Status:Active Unknown Family Member Name Dates Details Family history of coronary a rtery disease: Mother, Father(V17.3, Z82.49) Status:Active Unknown Family Member Name Dates Details Family history of coronary a rtery disease: Mother, Father(V17.3, Z82.49) Status:Active Unknown Family Member Name Dates Details Family history of coronary a rtery disease: Mother, Father(V17.3, Z82.49) Status:Active Unknown Family Member Name Dates Details Family history of coronary a rtery disease: Mother, Father(V17.3, Z82.49) Status:Active Unknown Family Member Name Dates Details Family history of coronary a rtery disease: Mother, Father(V17.3, Z82.49) Status:Active Unknown Family Member Name Dates Details Family history of coronary a rtery disease: Mother, Father(V17.3, Z82.49) Status:Active Unknown Family Member Name Dates Details Family history of coronary a rtery disease: Mother, Father(V17.3, Z82.49) Status:Active Advance Directives No Advanced Directives Records FoundNo Advanced Directives Records FoundNo Advanced Directives Records FoundNo Advanced Directives Records FoundNo Advanced Directives Records FoundNo Advanced Directives Records Found Chief Complaint 6 mo office visit for follow up on diabetes previous pt of Dr Jj Laurent6 mo office visit for follow up on diabetes previous pt of Dr Jj Ramosollow up for type 2 diabetesfollow up for type 2 diabetes diseasefollow up for diabetesfollow up for diabetesdiabetes follow up Additional Source Comments INFORMATION SOURCE (unrecogn ized section and content) DATE CREATED AUTHOR AUTHOR'S ORGANIZ ATION 03/05/2018 [facility] DATE CREATED AUTHOR AUTHOR'S ORGANIZ ATION 03/26/2023 [facility] [place] DATE CREATED AUTHOR AUTHOR'S ORGANIZ ATION 03/26/2023 [employer] DATE CREATED AUTHOR AUTHOR'S ORGANIZ ATION 06/01/2023 [facility] DATE CREATED AUTHOR AUTHOR'S ORGANIZ ATION 08/27/2023 [facility] FOR RECORDS PERTAINING TO PATIENTS WHO ARE OR HAVE BEEN ENROLLED IN A CHEMICAL DEPENDENCY/SUBSTANCEABUSE PROGRAM, SOME INFORMATION MAY BE OMITTED. This clinical summary was aggregated from multiple sources. Caution should be exercised in using it in the provision of clinical care. This summary normalizes information from multiple sources, and as a consequence, information in this document may materially change the coding, format and clinical context of patient data. In addition, data may be omitted in some cases. CLINICAL DECISIONS SHOULD BE BASED ON THE PRIMARY CLINICAL RECORDS. [facility]. provides no warranty or guarantee of the accuracy or completeness of information in this document.
[2023-09-15 11:07] LABS: ALB/GLOB Ratio 1.1 RATIO (0.9-2.4); AST(SGOT) 21 U/L (15-37); Alanine Aminotransfer ALT/SGPT 36 U/L (13-56); Albumin, Serum 3.8 g/dL (3.2-5.0); Alkaline Phosphatase 64 U/L (45-117); Anion Gap 3 (5-15); BUN 25 mg/dL (7-18); BUN/Creat Ratio 20.8 RATIO (10-20); Calcium,Total 9.6 mg/dL (8.5-10.1); Chloride 102 mmol/L (98-107); Cholesterol 185 mg/dL (200); EST Glomerular Filtration Rate 48 mL/min (>60); Est Glom Filt Rate - Afr Amer 58 mL/min (>60); Globulin 3.5 g/dL (2.2-4.2); Glucose 152 mg/dL (74-106); High Density Lipoprotein 34 mg/dL; Potassium 3.8 mmol/L (3.5-5.1); Protein, Total 7.3 g/dL (6.4-8.2); Sodium Level 133 mmol/L (136-145); Triglycerides 192 mg/dL; Very Low Density Lipoprotein 38 mg/dL (5-40)
[2023-09-15 11:12] LABS: Microalbumin,Random Urine 5.8 mg/L (NO RANGE EST.)
[2023-09-15 12:27] LABS: Hemoglobin A1c 6.3 % (3.8-5.6)
== END | disposition home or self-care (01) ==
LOC: MTLAB 07:04
PROVIDERS: PCP Family Medicine
DX: E11.9 Type 2 diabetes mellitus without complications (principal); Z79.4 Long term (current) use of insulin; E78.2 Mixed hyperlipidemia
CPT/HCPCS: 36415; 80053; 80061; 82043; 83036

== ENCOUNTER 2023-10-06 09:30 | Outpatient (RCR) | payer BC, SELFPAY ==
--- NOTE | 2023-08-04 12:41 | HP.PTEVAL_ITS ---
Patient's Visit Information Visit Information Visit Information: BOLIVAR ESCUDERO is a 63 year old F referred to Physical Therapy by Dr. Sherif Lai MD with a diagnosis of R RTC repair. DOS: 07/15/23. Date of Evaluation: 07/31/23 Physical Therapist: Salvador Youngblood DPT Visit Plan Frequency: 2x /Week Duration: 6 Weeks Plan: Start with PROM and AAROM exercises until follow up with physician. Pro sandro to end range as tolerated. May use ice for pain control. Subjective Subjective: Pt. is here today for her initial evaluation with diagnosis of R rotator cuff tear. DOS: 07/15/23. Pt. arrives without sling today. Pt. reports overall doing well, but is still sore. She is having some trouble with sleeping but is doing better over the past few days. Pt. reports doing pendulums at home with good tolerance. Pt. denies N/T. Pt. is doing most ADls, but is still having issues with dressing and with reaching behind her back. I talked about her not o frederick doing it and no lifting. Pt. consents. Pain R shoulder: Pain Intensity (Out of 10): 2 Pain Intensity Range: 1 and 6 Objective Objective: POSTURE: Pt. has fairly normal posture in standing and sitting. Pt. has R shoulder/arm in slightly guarded posture. PALPATION: Pt. has normal healing incsion. Pt. has slight tenderness at anterior and lateral shoulder. NEURO: normal throughout. ROM: PROM: R shoulder: flexion 145deg, abd 140deg, ER at side 30deg. AROM: R shoulder: flexion 85deg, abd 80deg, functional ER C1 aberrant motion. functional IR Gluteal region. Pt. reports pain as limiting factor with both AROM and PROM. MMT: RUE did not test. L shoulder: flexion 18#, abd 15#, ER 13#, IR 24#. Balance/Special Test Scores Quick DASH Score: 38.6350 Goals Goal 1:: LTG: Pt. to be I with HEP. Goal Time Frame: 4-6 Weeks Goal 2:: STG: Pt. to have increased R shoulder PROM to full without increase in symptoms. Goal Time Frame: 2-4 Weeks Goal 3:: LTG: Pt. to have full AROM of R shoulder without increase in symptoms. Goal Time Frame: 4-6 Weeks Goal 4:: LTG: Pt. to have symmetrical strength of BUEs allowing for ease of all ADLs and recreational activities. Goal Time Frame: 4-6 Weeks Goal 5:: STG: Pt. to sleep throughout the night without increase in symptoms. Goal Time Frame: 2-4 Weeks Goal 6:: LTG: pt. to complete all upper body dressing without increase in R shoulder symptoms. Goal Time Frame: 4-6 Weeks Rehabilitation Potential Physical Therapy Diagnosis: Pt. has signs and symptoms consistent with R RTC repair. DOS: 07/15/23. Pt. has subsequent hypomobility, increased pain, difficulty with ADLs. Pt. would benefit from PT to address the above limitations progressing back to all activities. Rehabilitation Potential: Excellent Anticipated Interventions Patient/Client Instruction: Educate patient on: Condition, Plan of Care, Risk Factors and Benefits of Fitness Program For the Purpose of:: To improve decision making, To facilitate caregiver knowledge, To improve self management, To prevent re-injury, To improve ability to perform tasks related to life management and To improve tolerance to ADL's Therapeutic Exercise to Include: Strength training, Power training, Endurance training, Balance training, Postural training, Flexibilty training, Passive ROM, Active ROM and Scapular Strength/Stabilization For the Purpose of:: To decrease pain, To increase ROM, To improve nutrient delivery to tissue, To increase oxygenation perfusion, To improve muscle performance and motor function, To improve ability to perform ADL's, To improve health of tissue, To decrease soft tissue restriction and To increase flexibility/ROM Manual Therapy Techniques to Include: Mobilization and Passive ROM For the Purpose of:: To decrease pain, To decrease swelling/inflammation, To increase ROM and To improve nutrient delivery to tissue Cryotherapy (ice pack, ice massage): Yes Text: Thank you for the opportunity to evaluate your patient. For Medicare and Medicare HMO plans, please review the plan of care and approve it. It will need to be FAXED BACK to us at [phone] for Medicare purposes. For Medicare only, by signing this I certify the plan of care. Please let me know if there are questions or concerns regarding this plan of care. Physician Signature: Date:
--- NOTE | 2023-08-24 09:41 | HP.PTREVAL ---
Re-Evaluation Intro: Dr. Sherif Lai MD, It has been my pleasure to treat BOLIVAR ESCUDERO over the last 6 visits for R RTC repair. DOS: 07/15/23. Please see the progress note below for an update on the physical therapy plan of care! Subjective Subjective: Pt. reports I am doing better today. Pt. is overall pleased, but would like to be better now. We discussed normal healing process with a RTc repair. Objective Objective/Function: Pt. is overall doing well. She has close to full AAROM. She is progressing as expected. pt to follow up with physician next week. She still has some soreness with over head movements, but is overall doing well. AROM: R shoulder: flexion 165deg, abd 16odeg, functional IR T10, functional ER C5. PROM: R shoulder flexion: 175deg, abd 170deg, ER at 90deg 85deg, IR at 90dge of abd 50deg, Plan Plan Plan: Start with PROM and AAROM exercises until follow up with physician. Progress to end range as tolerated. May use ice for pain control. Pt to follow up with physician next week. Balance/Gait/Functional tests Balance/Special Test Scores Quick DASH Score: 38.6350 Goals Goals Goal 1:: LTG: Pt. to be I with HEP. Goal Time Frame: 4-6 Weeks Goal 2:: STG: Pt. to have increased R shoulder PROM to full without increase in symptoms. Goal Time Frame: 2-4 Weeks Goal 3:: LTG: Pt. to have full AROM of R shoulder without increase in symptoms. Goal Time Frame: 4-6 Weeks Goal 4:: LTG: Pt. to have symmetrical strength of BUEs allowing for ease of all ADLs and recreational activities. Goal Time Frame: 4-6 Weeks Goal 5:: STG: Pt. to sleep throughout the night without increase in symptoms. Goal Time Frame: 2-4 Weeks Goal 6:: LTG: pt. to complete all upper body dressing without increase in R shoulder symptoms. Goal Time Frame: 4-6 Weeks Anticipated Interventions Anticipated Interventions Patient/Client Instruction: Educate patient on: Condition, Plan of Care, Risk Factors and Benefits of Fitness Program For the Purpose of:: To improve decision making, To facilitate caregiver knowledge, To improve self management, To prevent re-injury, To improve ability to perform tasks related to life management and To improve tolerance to ADL's Therapeutic Exercise to Include: Strength training, Power training, Endurance training, Balance training, Postural training, Flexibilty training, Passive ROM, Active ROM and Scapular Strength/Stabilization For the Purpose of:: To decrease pain, To increase ROM, To improve nutrient delivery to tissue, To increase oxygenation perfusion, To improve muscle performance and motor function, To improve ability to perform ADL's, To improve health of tissue, To decrease soft tissue restriction and To increase flexibility/ROM Manual Therapy Techniques to Include: Mobilization and Passive ROM For the Purpose of:: To decrease pain, To decrease swelling/inflammation, To increase ROM and To improve nutrient delivery to tissue Cryotherapy (ice pack, ice massage): Yes Re-Evaluation Ending Re-evaluation ending: Please do not hesitate to contact me at [phone] by phone or if you have questions or concerns regarding this new plan of care! Sincerely, Salvador Youngblood DPT
--- NOTE | 2023-10-14 15:58 | HP.PTDCSUM ---
Discharge Summary D/C summary: It has been my pleasure to treat BOLIVAR ESCUDERO referred by Dr. Sherif Lai MD, with the diagnosis of R RTC repair. DOS: 07/15/23 for a total of 12 visit(s). Discharge Date: 10/06/22 Please see the following information for a summary of their discharge status. Subjective Subjective: Pt. reports being 90% better overall. She reports no pain. She has been able to do more and more activities. She reports still having some weakness, but not bad. Pt. reports being HEP compliant. Pain R shoulder: Pain Intensity (Out of 10): 0 Overall Improvement % Improvement: 75 Objective Objective/Function: Pt. is overall doing well. She has close to full AROM and full PROM. Pt. reports no pain with all movements. MMT: 4+/5 throughout deltoid, 5/5 IR, 4+/5 ER., ext 5/5. Pt. is overall doing well. She is back to doing most activities. She is planning on starting to do her bird watching, but has to hold a heavier camera. She is working on deltoid strengthening to to assist with this. Pt. is I with HEP at this point in time Goals Goal 1:: LTG: Pt. to be I with HEP. Goal Progress: Goal Met Goal 2:: STG: Pt. to have increased R shoulder PROM to full without increase in symptoms. Goal Progress: Goal Met Goal 3:: LTG: Pt. to have full AROM of R shoulder without increase in symptoms. Goal Progress: Goal Met Goal 4:: LTG: Pt. to have symmetrical strength of BUEs allowing for ease of all ADLs and recreational activities. Goal Progress: Progressing Goal 5:: STG: Pt. to sleep throughout the night without increase in symptoms. Goal Progress: Goal Met Goal 6:: LTG: pt. to complete all upper body dressing without increase in R shoulder symptoms. Goal Progress: Goal Met Plan Plan: Pt. to be DC to HEP at this point in time. D/C Information Discharge Comments: Pt. was seen her R RTC repair. She was treated with progressive stretching and ROM. She then progressed to strengthening. She is currently doing well and in the further phases of her strengthening. She is I with HEP and will be DC to this HEP at this point in time. d/c sentence: If there are questions or concerns regarding this patient's physical therapy, please feel free to call me at [phone]. Thank you for the referral of this patient. Sincerely, Salvador Youngblood, DPT Balance/Gait/Functional tests Balance/Special Test Scores Quick DASH Score: 11.3625 Improvement % Improvement: 75
== END 2023-10-06 19:00 | disposition home or self-care (01) ==
LOC: PT 09:30
PROVIDERS: PCP Family Medicine; Visit Provider Orthopaedic Surgery Sports Medicine
DX: M75.101 Unspecified rotator cuff tear or rupture of right shoulder, not specified as traumatic (principal); M25.811 Other specified joint disorders, right shoulder
CPT/HCPCS: 97110; 97161

== ENCOUNTER → 2023-12-22 | Outpatient (CLI) | payer BC, SELFPAY ==
[2023-12-22 13:16] LABS: Mucous, Urine 0 SEEN /hpf (<or=2+)
[2023-12-22 13:28] LABS: Color, Urine Yellow (Yellow); Glucose, Dipstick Normal (Normal); Ketone-Dipstick Negative (Negative); Leukocyte Esterase-Dipstick 500 /ul (Negative); Nitrite-Dipstick Positive (Negative); Occult Blood-Urine 10 /ul (Negative); Protein-Dipstick 15 mg/dl (Negative); Specific Gravity, Urine 1.025 (1.002-1.030); Urine Bilirubin Dipstick Negative (Negative); Urine Clarity Clear (Clear); Urine Urobilinogen Normal (Normal)
[2023-12-22 13:40] LABS: Bacteria 2+ /hpf (None Seen); Red Blood Cells-Urine 0-5 SEEN /hpf (0-5); Squamous Epithelial Cells - UA 5-10 SEEN /hpf (5-10); White Blood Cells 10-25 SEEN /hpf (0-5)
== END | disposition home or self-care (01) ==
LOC: LABSPEC 13:02
PROVIDERS: PCP Family Medicine; Referring Provider Physician Assistant; Visit Provider Physician Assistant
DX: R10.9 Unspecified abdominal pain (principal)
CPT/HCPCS: 81001; 87086; 87088; 87186

== ENCOUNTER → 2024-03-03 | Outpatient (CLI) | payer BC, SELFPAY ==
[2024-03-03 12:20] LABS: Absolute Lymphocyte Count 1.48 X10^3/uL (0.83-4.51); Absolute Neutrophil Count 5.3 X10^3/uL (2.0-7.7); Basophil# 0.04 X10^3/uL; Basophil% 0.5 % (0-1); Eosinophil# 0.07 X10^3/uL; Eosinophils% 0.9 % (0-5); Hematocrit 40.5 % (37-47); Hemoglobin 13.6 g/dL (12.0-15.0); Lymphocyte # 1.48 X10^3/ul (0.83-4.51); Lymphocyte % 19.2 % (19-41); Mean Corp Hgb Conc 33.6 g/dL (32-36); Mean Corpuscular Hgb 30.6 pg (27.0-32.0); Mean Platelet Vol. 11.4 fl (6.2-12.0); Monocyte% 9.1 % (0-10); NRBC Flagged by Analyzer 0 % (0-5); Neutrophil # 5.32 X10^3/uL (2.7-7.7); Neutrophil % 69.3 % (47-70); Platelet Count 281 K/mm3 (150-450); RBC Distribution Width CV 14.1 % (11.6-14.6); RBC Distribution Width SD 47.1 fl (35.1-43.9); Red Blood Count 4.45 M/mm3 (4.2-5.4); White Blood Count 7.7 K/mm3 (4.4-11.0)
[2024-03-03 12:34] LABS: ALB/GLOB Ratio 1.1 RATIO (0.9-2.4); AST(SGOT) 15 U/L (15-37); Alanine Aminotransfer ALT/SGPT 23 U/L (13-56); Alkaline Phosphatase 65 U/L (45-117); Anion Gap 9 (5-15); BUN 29 mg/dL (7-18); BUN/Creat Ratio 24.6 RATIO (10-20); Calcium,Total 9.7 mg/dL (8.5-10.1); Chloride 104 mmol/L (98-107); Creatinine, Serum 1.18 mg/dL (0.55-1.02); EST Glomerular Filtration Rate 49 mL/min (>60); Est Glom Filt Rate - Afr Amer 59 mL/min (>60); Globulin 3.5 g/dL (2.2-4.2); Glucose 186 mg/dL (74-106); Potassium 3.7 mmol/L (3.5-5.1); Protein, Total 7.5 g/dL (6.4-8.2); Sodium Level 135 mmol/L (136-145)
[2024-03-03 12:46] LABS: PTHIN 18.5 pg/mL (18.4-80.1)
[2024-03-03 12:50] LABS: Vitamin D,25 Hydroxy 53.5 ng/mL
[2024-03-03 12:51] LABS: Protein, Urine (Random) 9.8 mg/dL (<11.9); Protein:Creat Ratio 143 mg/g CRE (0-200)
== END | disposition home or self-care (01) ==
LOC: MTLAB 09:34
PROVIDERS: PCP Family Medicine; Referring Provider Family Medicine; Visit Provider Family Medicine
DX: N18.30 Chronic kidney disease, stage 3 unspecified (principal)
CPT/HCPCS: 36415; 80053; 82306; 82570; 83970; 84156; 85025

== ENCOUNTER → 2024-04-07 | Outpatient (CLI) | payer BC, SELFPAY ==
[2024-04-07 13:07] LABS: Anion Gap 8 (5-15); BUN 25 mg/dL (7-18); BUN/Creat Ratio 21.6 RATIO (10-20); Calcium,Total 9.9 mg/dL (8.5-10.1); Chloride 103 mmol/L (98-107); Creatinine, Serum 1.16 mg/dL (0.55-1.02); EST Glomerular Filtration Rate 50 mL/min (>60); Est Glom Filt Rate - Afr Amer 60 mL/min (>60); Glucose 143 mg/dL (74-106); Potassium 3.6 mmol/L (3.5-5.1); Sodium Level 137 mmol/L (136-145)
== END | disposition home or self-care (01) ==
PROVIDERS: PCP Family Medicine; Referring Provider Family Medicine; Visit Provider Family Medicine
DX: E87.6 Hypokalemia (principal)
CPT/HCPCS: 36415; 80048

== ENCOUNTER → 2024-08-30 | Outpatient (CLI) | payer MEDICARE, OTHER, SELFPAY ==
[2024-08-30 10:19] LABS: Microalbumin:Creatinine Ratio 12.2 mg/g CRE (<30 mg/g CRE)
[2024-08-30 10:31] LABS: T4 Free Direct 1.29 ng/dL (0.76-1.46)
[2024-08-30 11:03] LABS: Hemoglobin A1c 6.4 % (3.8-5.6)
== END | disposition home or self-care (01) ==
LOC: MTLAB 07:10
PROVIDERS: PCP Family Medicine
DX: E89.0 Postprocedural hypothyroidism (principal); E11.65 Type 2 diabetes mellitus with hyperglycemia; Z79.4 Long term (current) use of insulin
CPT/HCPCS: 36415; 82043; 82570; 83036; 84439; 84443

== ENCOUNTER → 2024-09-01 | Outpatient (CLI) | payer MEDICARE, OTHER, SELFPAY ==
--- NOTE | 2024-09-01 09:35 | BI_ITS ---
MAMMOGRAPHY - BILATERAL SCREENING REASON FOR EXAM: Female, 64 years old. Routine annual screening examination. PERTINENT HISTORY: Non-contributory. TECHNIQUE: Digital bilateral breast serene (3D mammographic acquisition) in the CC and MLO projections. 2-D mediolateral oblique (MLO) and craniocaudad (CC) views of both breasts were obtained. CAD: Full Field Digital Mammography with Computer Added Detection was performed. COMPARISON: Comparison is made with prior study dated February 29, 2024 and August 14, 2022. FINDINGS: Breast Composition: The breasts are heterogeneously dense, which may obscure small masses. There are no dominant masses or suspicious calcifications. No other significant abnormalities are identified. There has been no significant change since the prior study. BI/SCRN MAMM (CAD)W/SERENE BILAT IMPRESSION: Stable bilateral screening mammogram. Yearly follow-up mammogram recommended. (A) ASSESSMENT CATEGORY: BIRADS Category 1: Negative. A letter regarding these results will be sent to the patient by the facility within 30 days. Approximately 10% of breast cancers are not detected by mammography. A normal mammogram should not delay biopsy of a clinically suspicious abnormality. [id number] Electronically Signed: Jorje Mayo MD at 10:41 EST ,
== END | disposition home or self-care (01) ==
LOC: OPBI 09:34
PROVIDERS: PCP Family Medicine; Referring Provider Family Medicine; Visit Provider Family Medicine
DX: Z12.31 Encounter for screening mammogram for malignant neoplasm of breast (principal)
CPT/HCPCS: 77063; 77067

== ENCOUNTER → 2024-10-13 | Outpatient (CLI) | payer MEDICARE, OTHER, SELFPAY ==
--- NOTE | 2024-10-13 13:02 | CT_ITS ---
PROCEDURE: EXTREMITY LOWER WITHOUT CONTRA REASON FOR EXAM: Templating for right total hip replacement. [facility] protocol. TECHNIQUE: Multiple axial tomographic images were obtained without intravenous contrast administration. Coronal and sagittal reconstruction was obtained as well. COMPARISON: None. FINDINGS: Bones: No evidence of fracture. Joints: There is a moderate degree of joint space narrowing of the right hip joint. Imaging of both knee joints were obtained. The patient is status post total knee replacement. Soft Tissues: Unremarkable. CT/Extremity Lower without Contra IMPRESSION: Moderate degree of joint space narrowing involving the right hip joint. One or more dose reduction techniques were used (e.g., Automated exposure contr ol, adjustment of the mA and/or kV according to patient size, use of iterative reconstruction technique). Reading Location: [id number]
== END | disposition home or self-care (01) ==
LOC: CT 12:56
PROVIDERS: PCP Family Medicine; Referring Provider Orthopaedic Surgery; Visit Provider Orthopaedic Surgery
DX: M16.11 Unilateral primary osteoarthritis, right hip (principal)
CPT/HCPCS: 73700

== ENCOUNTER 2024-10-20 11:00 | Outpatient (RCR) | payer BC, MEDICARE, OTHER, SELFPAY ==
--- NOTE | 2024-08-29 09:53 | HP.PTEVAL ---
Patient's Visit Information Visit Information Visit Information: BOLIVAR ESCUDERO is a 64 year old F referred to Physical Therapy by Dr. Guevara Savage DO with a diagnosis of R hip OA. Date of Evaluation: 08/29/24 Physical Therapist: Salazar Garcia, DAKSHAT, OCS, CSCS Visit Plan Frequency: 2x /Week Duration: 4-6 Weeks Plan: 2x/week for 4-6 weeks... IE reviewed activity modification adn movement ROM. Benefits of cane usage. Please treat with MH to HS , rollout HS and stretch adn manaul therapy grade 1-2 mobs to hip and PROM with OP to tolerance. Instruct in hip strength NWB to WB as otlerated and progress to HEP DigitalPost Interactiveder pool if land not tolerable, pt likely will have SKYLA in November TENS can be used if painful at rest. Subjective Subjective: R hip pain and OA. It has hurt for years on and off gently with bursitis diagnosis. Tightness with hiking. Since February has hurt more and got injection which helped. Has back bulges too which can hurt at times in leg. Injections in back have helped with that but not hip Had injection in July and cannot be replaced until after 3 months. SKYLA. Hip is tight and prevents her from walking through parking lot comfortably. retired and helps her a lot by dropping her at door. Hard to stand for long but hurts to cooker tender. Walking up steps is terribly painful but injection helped that. Pivotting on R hip really hurts. Pain is hamstring, lateral hip and groin.... Sleep is not great alot of times and needs to take pain meds. Not employed. Spends day: runs errands and walks but cannot do those since February. No regular exercise. Pain R hip: Pain Intensity (Out of 10): 0 Pain Intensity Range: 0 and 9 Comment: more comfortable at rest unless stays too long. Objective Objective: Walks with short steps and r antalgia slightly into PT I, hesitant with pivots.. steps careful with R but I with rail reciprocally up and down. Trasnfers bed and chair I. LB AROM min limited ext adn flexion without pain, R SB painful in hip. L hip PROM 105 flexion, 30 abd, 65 ER, 20 IR painfree. R hip PROM 86 hip flexion, 15 abd, 45 er, 10 IR all with some pain in groin and lateral hip. Ext 3 degrees R and 7 L knees and ankles AROM WFL B reflexes 1/3 patella and achilles B sensation LE WNL to gross light touch B LE. strength hip flexion 4- L and 4- R with pain, abd 3+ R and 4- L, ext 3 R and 3+ L. knee 4/5 B flexion adn ext without pain ankles 4/5 HS at -20 90/90 on L and -30 on R, feels tight. + R scour in hip, + R FADDIR and slightly R MARIANO Balance/Special Test Scores Lower Extremity Functional Score: 26 Goals Goal 1:: I appropriate HEp to limitu futre problems/prepare for surgery SKYLA Goal Time Frame: 4-6 Weeks Goal 2:: Pain in R hip 3/10 at worst and 60% improved overall. Goal Time Frame: 4-6 Weeks Goal 3:: sleep without waking due to pain for 6 hours. Goal Time Frame: 4-6 Weeks Goal 4:: LEFS score 50 Goal Time Frame: 4-6 Weeks Rehabilitation Potential Physical Therapy Diagnosis: R hip OA limtiied ROM, strength causing mobility deficits. Rehabilitation Potential: Fair Anticipated Interventions Patient/Client Instruction: Educate patient on: Condition and Plan of Care For the Purpose of:: To decrease pain, To increase ROM, To improve nutrient delivery to tissue, To improve muscle performance and motor function, To increase tolerance to activity/condition/position, To improve ability of physical actions for home/community/work/leisure and To improve gait and locomotor functions Therapeutic Exercise to Include: Strength training, Flexibilty training, Passive ROM and Active ROM For the Purpose of:: To decrease pain, To increase ROM, To improve nutrient delivery to tissue, To improve muscle performance and motor function, To increase tolerance to activity/condition/position and To improve gait and locomotor functions Manual Therapy Techniques to Include: Mobilization, Passive ROM and Soft tissue mobilization For the Purpose of:: To decrease pain, To increase ROM and To improve nutrient delivery to tissue TENS: Yes Thermo therapy (hot pack): Yes For the Purpose of:: To decrease pain Text: Thank you for the opportunity to evaluate your patient. For Medicare and Medicare HMO plans, please review the plan of care and approve it. It will need to be FAXED BACK to us at [phone] for Medicare purposes. For Medicare only, by signing this I certify the plan of care. Please let me know if there are questions or concerns regarding this plan of care. Physician Signature: Date:
--- NOTE | 2024-10-20 11:56 | HP.PTDCSUM ---
Discharge Summary D/C summary: It has been my pleasure to treat BOLIVAR ESCUDERO referred by Dr. Guevara Savage DO, with the diagnosis of R hip OA for a total of 13 visit(s). Discharge Date: 10/20/24 Please see the following information for a summary of their discharge status. Subjective Subjective: Ready for surgery. Feeling better in hip but back went out last week and was lying around a lot. R SKYLA is next Thursday. Confident she is ready for surgery and mobility at home with walker is fine. Hip still keeps her up at night at times. Pain R hip: Pain Intensity (Out of 10): 4 LB: Pain Intensity (Out of 10): 5 Overall Improvement % Improvement: 50 Objective Objective/Function: Walks with some R antalgia today but I. hip moving well and is glad she had therapy but ready to get surgery out of the way next week. R hip PROM: 100 flexion, 0 ext adn 20 abd Goals Goal 1:: I appropriate HEp to limitu futre problems/prepare for surgery SKYLA Goal Progress: Goal Met Goal 2:: Pain in R hip 3/10 at worst and 60% improved overall. Goal Progress: Progressing Goal 3:: sleep without waking due to pain for 6 hours. Goal Progress: Progressing Goal 4:: LEFS score 50 Goal Progress: Not Progressing Plan Plan: continue 2x/week for 3 weeks for 1. manual therapy , rollout upper leg, MH and leg pull to continue 2. please progress to strength pat can do at home for hip leading up to surgery. D/C Information d/c sentence: If there are questions or concerns regarding this patient's physical therapy, please feel free to call me at [phone]. Thank you for the referral of this patient. Sincerely, Salazar Garcia, DPT, OCS, CSCS Balance/Gait/Functional tests Balance/Special Test Scores Lower Extremity Functional Score: 22 Improvement % Improvement: 50
== END 2024-10-20 13:43 | disposition home or self-care (01) ==
LOC: PT 11:00
PROVIDERS: PCP Family Medicine; Visit Provider Orthopaedic Surgery
DX: M16.11 Unilateral primary osteoarthritis, right hip (principal)
CPT/HCPCS: 97110; 97140; 97161; 97164

== ENCOUNTER → 2024-10-21 | Outpatient (CLI) | payer MEDICARE, OTHER, SELFPAY ==
[2024-10-21 10:43] LABS: Anion Gap 14 (5-15); BUN 26 mg/dL (4-19); BUN/Creat Ratio 21.7 RATIO (10-20); Calcium,Total 9.7 mg/dL (7.6-11.0); Carbon Dioxide 25.3 mmol/L (21.0-32.0); Chloride 101 mmol/L (98-108); EST Glomerular Filtration Rate 50 (>60); Glucose 81 mg/dL (70-99); Potassium 3.9 mmol/L (3.3-5.1); Sodium Level 140 mmol/L (133-145)
== END | disposition home or self-care (01) ==
LOC: MTLAB 07:06
PROVIDERS: PCP Family Medicine
DX: E11.9 Type 2 diabetes mellitus without complications (principal); Z79.4 Long term (current) use of insulin; E03.9 Hypothyroidism, unspecified
CPT/HCPCS: 36415; 80048; 84443

== ENCOUNTER 2024-10-25 08:58 | Day surgery (SDC) | payer MEDICARE, OTHER, SELFPAY ==
[2024-10-13 13:55] LABS: Absolute Neutrophil Count 5.5 X10^3/uL (2.0-7.7); Basophil# 0.08 X10^3/uL; Eosinophil# 0.21 X10^3/uL; Eosinophils% 2.5 % (0-5); Hemoglobin 14.2 g/dL (12.0-15.0); Lymphocyte % 20.5 % (19-41); Mean Corp Hgb Conc 33.8 g/dL (32-36); Mean Corpuscular Hgb 31.1 pg (27.0-32.0); Mean Corpuscular Volume 92.1 fL (81-99); Mean Platelet Vol. 10.9 fl (6.2-12.0); Monocyte# 0.77 X10^3/uL; Monocyte% 9.3 % (0-10); NRBC Flagged by Analyzer 0 % (0-5); Neutrophil # 5.45 X10^3/uL (2.7-7.7); Neutrophil % 65.5 % (47-70); Platelet Count 285 K/mm3 (150-450); RBC Distribution Width CV 14.3 % (11.6-14.6); Red Blood Count 4.56 M/mm3 (4.2-5.4); White Blood Count 8.3 K/mm3 (4.4-11.0)
[2024-10-13 14:06] LABS: Prothrombin Time (Protime)PT. 13.1 SECONDS (11.7-14.9)
[2024-10-13 14:07] LABS: Partial Thromboplast Time 27.4 Seconds (24.1-36.2)
[2024-10-13 14:29] LABS: Anion Gap 12 (5-15); BUN 34 mg/dL (4-19); BUN/Creat Ratio 26.6 RATIO (10-20); Calcium,Total 9.7 mg/dL (7.6-11.0); Carbon Dioxide 24.8 mmol/L (21.0-32.0); Chloride 102 mmol/L (98-108); Creatinine, Serum 1.29 mg/dL (0.70-1.20); EST Glomerular Filtration Rate 46 (>60); Glucose 160 mg/dL (70-99); Potassium 4.2 mmol/L (3.3-5.1); Sodium Level 138 mmol/L (133-145)
[2024-10-13 14:41] LABS: Magnesium 2.2 mg/dL (1.5-2.2)
[2024-10-13 14:47] LABS: Hemoglobin A1c 6.5 % (<=5.6)
[2024-10-15 05:07] LABS: Fructosamine 278 umol/L (0-285)
[2024-10-25] VITALS (13 sets, daily range): BP systolic 108–152; BP diastolic 50–97; PULSE 55–71; RESP 10–16; TEMP 35.8–36.4; O2SAT 94–100; BMI 29.1
--- NOTE | 2024-10-25 10:16 | PCM.HP.BLA ---
History and Physical Date of Admission: 10/25/24 [facility] [address] [place] [address] OFFICE VISIT Date of Service: 08/24/24 MR#: [id number] Acct: [id number] Name: BOLIVAR ESCUDERO Rep #: [id number] : 1960 Provider: Dr. Guevara Savage DO Age/Sex: 64/F Location[place] [facility] [place] Status: Signed Intake Vital Signs 08/11/2508:16 Height 5 ft 11 in Weight: 217 lb 4 oz BMI 30.2 Intake Visit Reasons: RIGHT HIP Chief Complaint: Right hip Accompanied by: Self Is patient in pain?: Yes Pain scale (1-10): 6 Allergies prednisone Allergy (Verified 08/24/24 10:32) PREDNISONE INDUCED HYPERGLYCEMIAtramadol Adverse Reaction (Mild, Verified 08/24/24 10:32) Vomitingerythromycin base Adverse Reaction (Verified 08/24/24 10:32) Vomiting Medications ?Medication ?Instructions ?Recorded ?Confirmed ?Type fenofibrate nanocrystallized 145 145 mg PO QHS 03/24/17 08/24/24 History mg tablet levothyroxine 137 mcg tablet 150 mcg PO DAILY 07/29/17 08/24/24 History cholecalciferol (vitamin D3) 50 50 mcg PO DAILY 01/18/21 08/24/24 History mcg (2,000 unit) capsule magnesium oxide 500 mg PO DAILY 01/18/21 08/24/24 History potassium 99 mg tablet 200 mg PO BID 01/18/21 08/24/24 History repaglinide 2 mg tablet 2 mg PO DAILY PRN PRN DIABETES 01/18/21 08/24/24 History metoprolol succinate 100 mg 100 mg PO DAILY 04/17/21 08/24/24 History tablet,extended release 24 hr triamterene 37.5 1 tab PO DAILY 04/17/21 08/24/24 History mg-hydrochlorothiazide 25 mg tablet zolpidem 10 mg tablet 10 mg PO QHS PRN Sleep 04/17/21 08/24/24 History insulin degludec 100 unit/mL (3 42 unit subcut QHS 02/28/22 08/24/24 History mL) subcutaneous pen (Tresiba FlexTouch U-100 insulin) meclizine 25 mg tablet 25 mg PO DAILY PRN dizziness 02/28/22 08/24/24 History repaglinide 1 mg tablet 1 mg PO UD PRN diabetes 02/28/22 08/24/24 History insulin lispro 100 unit/mL 1 sliding scale dose subcut 05/26/23 08/24/24 History subcutaneous pen USEASDIRECTD atorvastatin 20 mg tablet 20 mg PO QHS 07/01/23 08/24/24 History lisinopril 5 mg tablet 5 mg PO DAILY 07/01/23 08/24/24 History omeprazole magnesium 20 mg 20 mg PO DAILY 07/01/23 08/24/24 History tablet,delayed release (Prilosec OTC) ciprofloxacin HCl 500 mg tablet 500 mg PO BID #10 tabs 12/22/23 08/24/24 Rx Have you fallen in the past year?: No PFSH Medical History Osteoarthritis of right hip Right hip pain History of steroid therapy Insulin dependent diabetes mellitus Menieres disease Dietary restriction Gastric reflux Right rotator cuff tear Urinary tract infection with hematuria Impingement of right shoulder Right shoulder pain Chronic kidney disease Wears glasses Post-menopausal History of renal disease Fatty liver High cholesterol Back pain Migraine headache Former smoker CPAP (continuous positive airway pressure) dependence History of irregular heartbeat Chronic neck and back pain Thyroid disease Fatigue Shoulder pain Arthritis Surgical History H/O total knee replacement S/P right unicompartmental knee replacement H/O: hysterectomy s/p parathyroid S/P cholecystectomy S/P cervical spinal fusion S/P revision of total knee S/P total knee arthroplasty Family History Mother Heart diseaseFather Heart disease Social History household members: spouse housing: house Smoking Status: Former smoker pack-years: 10 alcohol intake: never what type of physical activity do you participate in: none do you feel safe at home: Yes HPI RIGHT HIP Details: This documentation accurately reflects the service provided and the decisions made by me, Dr. Guevara Savage, DO 08/24/24 0756. Part of today?s visit was documented by Rebekah Morales ATC, acting as scribe. BOLIVAR ESCUDERO is a 64 year old F with medical history significant for but not limited to lumbar spinal stenosis, herniated nucleus pulposus lumbar, nonalcoholic fatty liver disease, hypothyroidism, familial hyperlipidemia, insulin-dependent type 2 diabetes mellitus, depression, hypertension, chronic kidney disease. Patient is here for right hip pain. She rates her pain a 6/10 today and states it is worse when walking rather than when she is sitting down. Patient states the hip has been bothering her on and off for a number of years but got a lot worse in February 2024. She states previously thought it was bursitis and she had a bursa injection the end of February 2024 which was helpful and at the time the pain was only lateral. and then another injection with pain management Dr. Gayle's office in the hip joint on July 20, 2024. Patient states she got maybe a week or so of 75% of relief and then a week and a half later she turned on the hip wrong and it made it much worse. Patient describes the pain wrapping around to the groin and back into the buttocks but states the pain in the buttocks comes and goes. Patient states she does have back problems and had injections for this in May 2024 so she was able to tell which pain was specifically coming from the back and what is coming from the hip. She states she has muscular pain in the anterior / lateral and posterior thigh. Patient has a spot into her lower leg which got relief from the hip injection. She states she gets nerve pain down the leg but thinks that is coming from the back. She does see massage therapy and gets relief for maybe a day. Patient denies physical therapy for the hip. Patient states she has a prescription of Percocet but she will only take it when the hip pain is really bad or at night to help her sleep. Patient states she cannot take any anti-inflammatories because she does have chronic kidney disease. she has not had therapy on the hip but has had in the past for her back which was stopped because it was making her worse. Ortho Exam General General: Yes no acute distress Neurologic: Yes alert and Yes oriented x3 Psychologic: Yes reasonable and appropriate Right Hip Skin: Yes CDI, No Ecchymosis, No soft tissue swelling and No Erythema internal rotation @90 degree flexion: 8 degrees external rotation @90 degree extension: 25 degrees Special Tests: No TTP Greater Troch, Yes C sign, Yes FADIR and Yes FADER HIP: hip IR painful into upper and outer groin. hip ER painful. pain but 5/5 strength with resisted hip flexion into groin. 5/5 hip abduction strength. good ankle range of motion. ttp over posterior trochanter and glute. Head: Normocephalic Atraumatic Chest: symmetrical rise, non-labored breathing, no audible wheeze Abdomen: no guarding, non-rigid Supplemental Info 08/24/2024 x-ray right hip: Slight progression of joint space narrowing now would consider moderate 08/24/2024 x-ray lumbar spine there is multilevel lower lumbar facet arthrosis 06/07/2024 x-ray right hip: There is mild joint space narrowing mild degenerative change of the hip there is noted to be sacroiliac joint arthrosis. 05/14/2021 MRI lumbar spine: Multilevel degenerative disc disease most prominent L3-L4. 0.8 cm synovial cyst anterior aspect of the right ligamentum flavum at L3-L4. Prominent epidural fat localized at multiple levels clinical correlation for epidural lipomatosis Coding Level of Care Code Off vis,est,level 3 Diagnoses Osteoarthritis of right hip M16.11 Assessment and Plan Assessment and Plan (1) Osteoarthritis of right hip: Status: Acute Orders: Orders Lumbar Spine 2 or 3 Views Today M25.551 - Pain in right hip HIP, UNI W/ Pelvis 2-3 Views Today M16.11 - Unilateral primary osteoarthritis, right hip Referrals Physical Therapy Referral M16.11 - Unilateral primary osteoarthritis, right hip Plan Spoke with the patient about the anatomy of the hip and lumbar spine. Explained her osteoarthritis has progressed on radiographs, would call more moderate today. She has overlapping pain from her lumbar spine. Her pain might be increased currently due to antalgic gait. Spoke with her about her options- physical therapy for lumbar spine and hip for gait training stretching and strengthening, total hip arthroplasty, repeat intra-articular injections which are helpful for short periods of time. She is unable to take NSAIDS due to her kidney disease. She has no history of infections after any of her surgeries. Spoke with her about the risks of proceeding with surgery due to her diabetes or kidney disease. She has other risks if she has a total hip arthroplasty- she might have continued pain due to her lumbar spine, blood clots or infection. Spoke with her about doing prehab to help with flexibility of her hip and explained physical therapy is important post op and total hip arthroplasty will not improve her hip stiffness she would need a CT scan for makoplasty. 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 I would not recommend rock climbing after hip replacement surgery. She would like to get back to [facility] which is mostly standing for long periods of time which would be reasonable. Risks, benefits and alternatives of surgery reviewed including but not limited to bleeding, infection, nerve, foot drop, artery and/or tissue damage, fracture, VTE, leg length discrepancy, dislocation, need for hip precautions, continued pain and expected post-operative course. She should speak with her family and let our office when she would like to proceed with surgery. She would not be able to proceed with surgery until 3 months after her injection. Follow up on an as needed basis or sooner if pain, swelling, numbness or associated symptoms, or concerns develop. All questions answered. Patient in agreement of plan. Clinical Quality Measures Falls Risk Screening/Assistive Devices Have you fallen in the past year?: No 08/24/24 1311 <Electronically signed by Guevara Savage DO> Date Guevara Savage DO I have examined the patient and the H&P has been reviewed. There are no clinical changes since date of exam.
--- NOTE | 2024-10-25 10:17 | PCM.PRE.AN2 ---
ASA Classification* ASA Classification ASA Classification: 3 (Concerned about blood glucose. Uatsdin. REFUSES blood products. Accepts albumin. ) Assessment & Plan Anesthesia* Anesthesia Assessment Anesthesia Assessment: Discussed sedation and/or anesthesia options, risks, benefits, and alternatives with patient/parents/legal guardian/POA. Questions invited. The patient/parents/legal guardian/POA seems to understand and agrees to proceed with anesthesia plan. Reviewed the physical assessment, medical history, allergy history and patient home medications list prior to surgery/procedure/anesthetic and documented any changes. Performed airway and anesthesia risk assessments. I Had a thorough discussion with patient regarding her JW beliefs with regard to blood administration. The patient has agreed to the administratino of albumin if needed, but refuses all blood products otherwise (pRBCs, FFP, whole blood, etc). Anesthesia Type Anesthesia Type: Spinal History Source History Obtained from:: Patient and Chart Anesthesia Focused Assessment* Temperature: 97.2 F Pulse Rate: 61 Blood Pressure: 151/73 Respiratory Rate: 16 Pulse Ox: 98 Oxygen Delivery Method: Room Air Airway Assessment Mouth opens: >3 cm Mallampati Score: II Teeth Condition: Intact Neck Range of motion (ROM): Limited ROM (Limited neck extension due to cervical fusion x 2) Focused Labs Anesthesia Preop lab: CBC WBC 8.3 K/mm3 (4.4-11.0) 10/13/24 13:36 10/13/24 RBC 4.56 M/mm3 (4.2-5.4) 10/13/24 13:36 10/13/24 Hgb 14.2 g/dL (12.0-15.0) 10/13/24 13:36 10/13/24 Hct 42.0 % (37-47) 10/13/24 13:36 10/13/24 Plt Count 285 K/mm3 (150-450) 10/13/24 13:36 10/13/24 CHEMISTRY Potassium 3.9 mmol/L (3.3-5.1) 10/21/24 07:10 10/21/24 Sodium 140 mmol/L (133-145) 10/21/24 07:10 10/21/24 Magnesium 2.2 mg/dL (1.5-2.2) 10/13/24 13:36 10/13/24 Phosphorus 3.3 mg/dL (2.5-4.9) 07/23/22 07:07 07/23/22 BUN 26 mg/dL (4-19) H 10/21/24 07:10 10/21/24 Creatinine 1.20 mg/dL (0.70-1.20) 10/21/24 07:10 10/21/24 Glucose [facility] 177 mg/dL (70-110) H 01/22/21 15:11 01/22/21 Glucose 81 mg/dL (70-99) 10/21/24 07:10 10/21/24 POC Glucose 145 mg/dL (74-106) H 07/15/23 11:37 07/15/23 TSH 3.830 uIU/mL (0.300-4.200) 10/21/24 07:10 10/21/24 COAG PT 13.1 SECONDS (11.7-14.9) 10/13/24 13:36 10/13/24 Pre-Assessment Diagnosis/Proposed Procedure Planned Operative Procedure(s): (R) Right Total Hip Replacement Robotic Arm Assisted Anesthesia History 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 When Was Last Pacemaker Check QUESTION #4 FULL TEXT: You/Your Family Experience fever (hyperthermia) with Anesthesia Last Oral Intake Last Oral intake: Last Oral Intake NPO since 07:45 10/25/24 09:43 Meds taken in AM with sips of Yes 10/25/24 09:43 water? Meds patient instructed to take am of surgery PONV PONV - employee benefits manager: PONV - employee benefits manager Female Yes 10/11/24 10:17 HX of Motion Sickness No 10/11/24 10:17 HX of N/V After Surgery Yes 10/11/24 10:17 Non-Smoker Yes 10/11/24 10:17 Duration of Surgery greater Yes 10/11/24 10:17 than 60 minutes Number of Risk Factors 4 10/11/24 10:17 PONV Score Severe Risk 10/11/24 10:17 Height & Weight Height & Weight: Anesthesia: Height & Weight Height 5 ft 11 in 10/25/24 09:43 Weight: 94.8 kg 10/25/24 09:43 Body Mass Index (BMI) 29.1 10/25/24 09:43 Respiratory Assessment Respiratory Assessment - employee benefits manager: Respiratory Tract Infection Hx - employee benefits manager Hx Respiratory Tract Infection No 10/11/24 10:17 STOP Sleep Apnea STOP Sleep Apnea - employee benefits manager: STOP Sleep Apnea - employee benefits manager Hx Hypertension No 10/11/24 10:17 Hx Sleep Apnea Yes 10/11/24 10:17 CPAP Yes 10/11/24 10:17 BIPAP No 10/11/24 10:17 Do you snore loudly (louder than talking or can be heard Do you often feel tired/ fatigued/ sleepy during daytime? Has anyone observed you stop breathing during sleep? STOP Results Positive 10/11/24 10:17 QUESTION #5 FULL TEXT : Do you snore loudly (louder than talking or can be heard through closed doors)? Tobacco Use History Tobacco Use History - employee benefits manager: Tobacco Use History - employee benefits manager Tobacco Use Smoking Status Former smoker 10/11/24 10:17 Hx Tobacco Use Yes 10/11/24 10:17 Years Smoking Packs Smoked per Day Smoking Cessation Date was No - quit smoking greater 10/11/24 10:17 within the last 15 years than 15 years ago Hx Smoking Cessation Date 08/10/79 10/11/24 10:17 Hx Smoking Cessation Counseling Hematologic Medial History Hematologic Hx - employee benefits manager: Hematologic Medical Hx - grill cook Hx of Blood Transfusion No 10/11/24 10:17 Hx of Transfusion in last 3 No 10/11/24 10:17 Months Date of Last Transfusion (if within last 3 months) Ever experience any problems No 10/11/24 10:17 with transfusion(s)? Specify any problems Hx of Preganancy in last 3 N/A 10/11/24 10:17 Months Nurse Filling Out Transfusion NBUCHER 10/11/24 10:17 & Questions: Date: 10/11/24 10/11/24 10:17 Time: 10:19 10/11/24 10:17 Patient unable to answer at this time (ie. confused, unrespo /Reproduction History /Reproductive History - employee benefits manager: /Reproductive Hx- employee benefits manager Hx Now No 10/11/24 10:17 Gestational Age (in weeks): EDC: Hx Hx Para Hx Section SAB No 10/11/24 10:17 Active Medications Active Medications: Current Medications Generic Name Dose Route Start Last Admin Trade Name Freq PRN Reason Stop Dose Admin Acetaminophen 1,000 mg 10/25/24 10:55 Acetaminophen 500 Mg Tablet PO 10/25/24 10:56 X1 ONE Dexamethasone Sodium Phosphate 10 mg 10/25/24 10:55 Dexamethasone 10 Mg/Ml Vial IV 10/25/24 10:56 X1 ONE Gabapentin 600 mg 10/25/24 10:55 Gabapentin 600 Mg Tablet PO 10/25/24 10:56 X1 ONE Lactated Ringer's 1,000 mls @ 999 mls/hr 10/25/24 10:55 IV 10/25/24 11:55 .Q1H1M CARRIE Cefazolin Sodium 2 gm/ N/A 20 mls @ 400 mls/hr 10/25/24 10:55 IV 10/25/24 10:57 PREOP ONE Tranexamic Acid 2,000 mg/ 120 mls @ 660 mls/hr 10/25/24 10:55 Sodium Chloride IV 10/25/24 11:05 X1 ONE Lactated Ringer's 1,000 mls @ 125 mls/hr 10/25/24 10:55 IV 10/25/24 18:54 .Q8H CARRIE Magnesium Sulfate 1 gm/ 102 mls @ 408 mls/hr 10/25/24 10:55 Dextrose IV 10/25/24 11:09 X1 ONE Insulin Human Lispro 1 - 6 unit 10/25/24 10:55 Insulin Lispro 100 Unit/Ml Insuln.Pen SC 10/25/24 18:00 Q4H PRN PRN BG>/= 180, SEE PROTOCOL Protocol Scopolamine HBr 1 patch 10/25/24 10:55 Scopolamine 1mg/72hr Patch TD 10/25/24 10:56 X1 ONE PFS Medical History (Updated 10/11/24 @ 10:22 by Jennifer Arthur) GERD (gastroesophageal reflux disease) Sleep apnea PONV (postoperative nausea and vomiting) Osteoarthritis of right hip Right hip pain History of steroid therapy Insulin dependent diabetes mellitus Menieres disease Dietary restriction Gastric reflux Right rotator cuff tear Urinary tract infection with hematuria Impingement of right shoulder Right shoulder pain Chronic kidney disease Wears glasses Post-menopausal History of renal disease Fatty liver High cholesterol Back pain Migraine headache Former smoker CPAP (continuous positive airway pressure) dependence History of irregular heartbeat Chronic neck and back pain Thyroid disease Fatigue Shoulder pain Arthritis Home Medications ?Medication ?Instructions ?Recorded ?Last Taken ?Type fenofibrate nanocrystallized 145 145 mg PO QHS 03/24/17 Unknown History mg tablet levothyroxine 137 mcg tablet 150 mcg PO DAILY 07/29/17 10/25/24 06:00 History cholecalciferol (vitamin D3) 50 50 mcg PO DAILY 01/18/21 Unknown History mcg (2,000 unit) capsule magnesium oxide 500 mg PO DAILY 01/18/21 Unknown History potassium 99 mg tablet 200 mg PO BID 01/18/21 Unknown History repaglinide 2 mg tablet 2 mg PO DAILY PRN PRN DIABETES 01/18/21 Unknown History metoprolol succinate 100 mg 100 mg PO DAILY 04/17/21 07/23/21 04:30 History tablet,extended release 24 hr triamterene 37.5 1 tab PO DAILY 04/17/21 Unknown History mg-hydrochlorothiazide 25 mg tablet zolpidem 10 mg tablet 10 mg PO QHS PRN Sleep 04/17/21 Unknown History insulin degludec 100 unit/mL (3 42 unit subcut QHS 02/28/22 07/14/23 18:30 History mL) subcutaneous pen (Tresiba 30 unit FlexTouch U-100 insulin) meclizine 25 mg tablet 25 mg PO DAILY PRN dizziness 02/28/22 Unknown History insulin lispro 100 unit/mL 1 sliding scale dose subcut 05/26/23 Unknown History subcutaneous pen USEASDIRECTD lisinopril 5 mg tablet 5 mg PO DAILY 07/01/23 07/15/23 History omeprazole magnesium 20 mg 20 mg PO DAILY PRN gerd 07/01/23 10/25/24 06:00 History tablet,delayed release (Prilosec OTC) oxycodone-acetaminophen 5 mg-325 1 tab PO TID PRN PRN pain 10/11/24 Unknown History mg tablet Allergy/AdvReac Type Severity Reaction Status Date / Time prednisone Allergy PREDNISONE Verified 10/11/24 10:14 INDUCED HYPERGLYCEMIA tramadol AdvReac Mild Vomiting Verified 10/11/24 10:14 erythromycin base AdvReac Vomiting Verified 10/11/24 10:14 Family History Mother Heart disease Father Heart disease Surgical History H/O total knee replacement S/P right unicompartmental knee replacement H/O: hysterectomy s/p parathyroid S/P cholecystectomy S/P cervical spinal fusion S/P revision of total knee S/P total knee arthroplasty Social History household members: spouse housing: house Smoking Status: Former smoker pack-years: 10 alcohol intake: never what type of physical activity do you participate in: none do you feel safe at home: Yes Review of Systems (Anesthesia) ROS Narrative System reviewed and no additional complaints, except as documented. Physical Exam Const alert, oriented x3 and average body habitus Resp normal respiratory effort, normal air movement and clear to auscultation bilaterally Cardio regular rate, regular rhythm, no murmurs and diaphoretic
[2024-10-25] MEDS: Acetaminophen 500 MG Tablet 1000 MG PO ×2 (10:20→16:59)
[2024-10-25] MEDS: Lactated Ringers 1,000 ML 999 ML IV (10:21)
[2024-10-25] MEDS: Magnesium 1 GM over 15 mins IV (10:21)
[2024-10-25] MEDS: Gabapentin 600 MG Tablet PO (10:21)
[2024-10-25] MEDS: Scopolamine 1mg/72hr Patch 1 PATCH TD (10:21)
[2024-10-25] MEDS: Cefazolin 2 GM in Syringe 10 ML IV (10:46)
[2024-10-25 10:50] LABS: Bedside Glucose 121 mg/dL (74-106)
[2024-10-25] MEDS: TRANEXAMIC ACID 2,000 MG in 0.9% Normal Saline (100mL Bag) 100 ML 660 MG IV (10:50)
--- NOTE | 2024-10-25 10:55 | FEM._PTH ---
PATIENT: BOLIVAR ESCUDERO LOC: [facility] – [place] U#:[id number] AGE/SX: 64/F ROOM: RE10/25/[address]: Dr. Guevara Savage DO : 1960 BED: DIS: 10/25/2024 SPEC #: [id number] RECD: 10/26/24 09:16 STATUS: CAITLYN REQ #: [id number] CARMEN: 10/25/24 10:[address]: Guevara Savage DEPT: SURGICAL PATHOLOGY RECD BY: Bertin Noguera ENTERED: 10/26/24 09:16 SP TYPE: FEM HEAD OTHR DR: Dr. Rohit Torres MD Tissues: A - Hip, NOS Procedures: Decalcification bone/plaque Surgery Specimen Level III HEADER OPERATION: ERAS, right total hip replacement robotic arm assisted PRE-OP DIAGNOSIS: Osteoarthritis of right hip TISSUE SUBMITTED: A- Right femoral head MICROSCOPIC DIAGNOSIS A. Right femoral head, total hip arthroplasty: * Articular bone with osteoarthritic reactive and degenerative changes. * Trilineage hematopoiesis. MICROSCOPIC DESCRIPTION Slides are reviewed. GROSS DESCRIPTION A. Received in fixative is one container labeled with the patient's name and designated Right femoral head. The specimen consists of a femoral head measuring 4.9 x 5 x 4.9 cm. The articular surface is worn, eburnated. The specimen also contains multiple bone fragments measuring 6.5 x 5.5 x 2.0 cm in aggregate. A motor vehicle field representative section to be taken is submitted in one cassette after decalcification. 10/26/2024 CPT:97046,64485
[2024-10-25] MEDS: Lactated Ringers 1,000 ML 125 ML IV ×2 (12:30→14:23)
--- NOTE | 2024-10-25 13:23 | OP.PCM_ITS ---
Operative Report (Standard) Operative Information Date of Procedure: 10/25/24 Pre-Operative Diagnosis: Right hip DJD Post-Operative Diagnosis: Same Surgery/Procedure Performed: Right total hip arthroplasty obiee consultant: Yes Statistician: Philippe Pardo Tasks completed by assistant women's rowing coach: Opening & closing and Retracting Additional catalog library assistant?: Yes Additional Industrial Engineering #2: Katia Bass Tasks completed by catalog library assistant #2: Retracting Additional catalog library assistant?: No Type of Anesthesia: Spinal RN Documented Start/Stop Times: Operation Date: 10/25/24 10:55 Case Time Into Pre-Op 10/25/24 09:04 Anesthesia Start 10/25/24 10:46 Into Room 10/25/24 10:46 Procedure Start 10/25/24 11:23 Procedure End 10/25/24 13:07 Anesthesia End 10/25/24 13:19 Out of Room 10/25/24 13:19 Procedure Start Time: 11:23 Procedure Stop Time: 13:07 Select all DRAINS/GRAFTS/IMPLANTS that apply: Implanted device Implanted device details: [place] Estimated Blood Loss: 125 Specimen collected: Yes Description of specimen(s) removed: Femoral head Description of surgery: Preoperative diagnosis: Right hip DJD Postoperative diagnosis: Same Procedure: CT-guided Makoplasty assisted right total hip arthroplasty Implants: Sury Accolade II stem size 4, 132 degree neck angle 0 head neck length 52 mm Trident II acetabular shell with 40 mm cancellous screw 32mm ceramic head, 10 degree Trident X3 polyethylene insert. Anesthesia: Spinal EBL: 125 cc Complications: None Condition: Stable to PACU Industrial Engineering Philippe Pardo. My physician catalog library assistant was a vital part of this case. He was important in appropriate retraction during the case, and protection of soft tissues during procedure. His intimate knowledge of the case and my steps aided in safe and expedient completion of the procedure as well as appropriate position of the extremity during the case. He was also vital in assisting with closure under my direct supervision. Indication for procedure: This is a 64-year-old female who has had long-standing arthrosis of the hip who has failed conservative treatment and wished to undergo total hip arthroplasty. We did discuss operative versus nonoperative intervention including risks of bleeding, infection , nerve artery tissue damage, need for further surgery, fracture, leg length discrepancy dislocation blood clot and need for postoperative physical therapy and postoperative expectations. An informed consent was signed. Procedure: Patient was met in the preoperative holding area once again the operative extremity was identified by both patient and physician and was marked. Patient was met by anesthesia . Anesthesia was started. patient was then positioned in the lateral decubitus position on a well-padded pegboard with an axillary roll. All bony prominences were checked and padded. The patient was prepped and draped in the usual sterile fashion. A timeout was called to ensure the proper patient procedure and extremity were being contemplated. Anatomic landmarks were palpated and marked for a standard posterior lateral approach. Prior to this the ASIS was palpated and 3 fingerbreadths proximal to this 3 pins were placed at a 45 degree angle into the iliac crest with good purchase, stab incisions were made with a 15 blade into the skin prior to placement. The Makoplasty array was then secured. A 10 blade scalpel was used to make a posterior incision through the skin and subcutaneous tissue. retractors were used and electrocautery was used to maintain meticulous hemostasis and dissect full-thickness flaps until the gluteal fascia was reached. The gluteal fascia was incised in line with the gluteal fibers. The bursal tissue was then freed from the underside and a Charnley retractor was placed. The femoral trochanteric checkpoint was placed and leg length was assessed using the trochanteric checkpoint and an EKG lead that was placed on the knee prior to prepping the leg .the fat pad was then elevated off of the external rotators with electrocautery and the external rotators were dissected off of the greater trochanter including the piriformis and were tagged with #1 Ethibond for later repair. The joint capsule opened with posterior trapdoor technique. The hip was surgically dislocated. The measurement on the preoperative CT from the top of the lesser trochanter to the femoral neck cut was marked Hohmann was placed around the lesser trochanter. A neck cutting guide was used to smith the neck with a Bovie and an oscillating saw was used complete the femoral neck cut. The femoral head was then removed and sized. We then turned our attention to the acetabulum. A Bovie was used to make a perforation in the anterior joint capsule and a Riggs retractor was placed this was repeated in the 6 o'clock position and a wide olena was placed there. With a long handled knife the labral and pulvinar tissue were removed. We then registered the acetabulum with the pointing array and confirmed our landmarks. Once the socket was thoroughly prepared and labral tissue and pulvinar was removed we single reamed with the robotic arm. We then used the robotic arm to position the acetabular implant and impacted it into place under robotic guidance. We then proceeded to place a posterior superior screw by drilling first measuring and inserting the screw. We then inserted a trial liner. And turned our attention back to the femur at this point a femoral elevator was used. As well as a pointed wide Hohmann around the lesser trochanter and a Hohmann to help retract the gluteus medius. A box chisel was used to remove excess lateral neck followed by a canal finder and a lateralizing reamer. This was followed by sequential broaches. Attention was made of the version within the canal based on preoperative templating. Once the final broach was seated we then trialed reduced the hip it was determined that a 132 degree neck angle with a 0 neck length was the appropriate size. We then checked stability with shuck testing as well as flexion and internal rotation. then proceeded with hip extension and checked leg lengths at the knees and heels as well as with the trochanteric checkpoint and knee EKG lead. At this point trials were removed. A liner was inserted to the cup. The femoral stem was inserted. We re-trialed and then proceeded to impact the femoral head onto the Wili taper. We then surgically reduce the hip check stability again and leg lengths and were satisfied. Betadine rinse was allowed to sit for 5 minutes while everyone changed their gloves. Thorough irrigation was performed. Followed by closure of the external rotators with #2 FiberWire followed by closure of gluteal fascia with #1 Ethibond. 0 Vicryl fat stitches and 2-0 Vicryl subcutaneous stitches and mayank in the skin. [place] were placed in the skin pin sites over the iliac crest and dressed with a Mepilex dressing. The main incision was dressed with a Mepilex ag dressing and an abduction pillow was placed. Patient tolerated the procedure well there was no intraoperative complications all counts were correct and the patient was brought back to the PACU in stable condition Surgical Findings: DJD hip Complications Complications: No
--- NOTE | 2024-10-25 13:25 | DCINST_ITS ---
Discharge Instructions Diet Discharge Diet: No restrictions Activity Weight Bearing Status: Full weight bearing Dressing / Incision Call your doctor if you observe: Shortness of breath and Chest pain Additional Dressing/Incision Instructions:: Do not shower 72hrs. Begin daily showering warm water antibacterial soap postop day #3( 72hrs Post-operatively) and then daily. Leave the dressing on for 72 hours postoperatively then may remove prior to first shower and change dressing daily after this until no drainage for 2 consecutive days then may leave open to air. Follow hip precautions that were reviewed in hospital. Wear compression stockings, may remove at night. Start physical therapy as directed in hospital. Follow prescriptions instructions do not take any other pain medication or differ dosing without consulting your physician. Do not take oral NSAIDs until blood thinner has been completed , then may begin the day after completion if needed . Call Dr. Savage's office with any concerns. Follow Up Care Please Follow Up With: Guevara Savage DO When: 2 weeks Test Results: Test results from this visit will be discussed in further detail at your follow- up appointment, if applicable. Discharge Plan Admission Primary Reason for Your Visit: Right total hip arthroplasty Attending Provider: Guevara Savage Primary Care Provider: Rohit Torres Instructions Print Language: Irish Discharge Orders/Prescriptions Prescriptions: New oxycodone 5 mg tablet 5 - 15 mg PO Q4H PRN (Reason: pain) 5 Days Qty: 60 0RF Eliquis 2.5 mg tablet 2.5 mg PO BID Qty: 42 0RF Rx Instructions: Begin morning after surgery. cephalexin 500 mg capsule 1,500 mg PO Q8H Qty: 6 0RF Rx Instructions: Take 3 tabs before you go to bed and 3 tabs after 5 AM morning after surgery when you wake up acetaminophen 500 mg tablet 1,000 mg PO Q6H Qty: 100 0RF Continued repaglinide 2 mg tablet 2 mg PO DAILY PRN PRN (Reason: DIABETES) cholecalciferol (vitamin D3) 50 mcg (2,000 unit) capsule 50 mcg PO DAILY potassium 99 mg tablet 200 mg PO BID magnesium oxide 250 mg magnesium tablet 500 mg PO DAILY triamterene-hydrochlorothiazid 37.5-25 mg tablet 1 tab PO DAILY Patient Comments: TAKE 1&1 2 TABLET BY MOUTH ONCE DAILY zolpidem 10 mg tablet 10 mg PO QHS PRN (Reason: Sleep) Patient Comments: TAKE 1 2 (ONE HALF) TABLET BY MOUTH AT BEDTIME NEEDED FOR SLEEP metoprolol succinate 100 mg tablet extended release 24 hr 100 mg PO DAILY meclizine 25 mg tablet 25 mg PO DAILY PRN (Reason: dizziness) insulin lispro 100 unit/mL insulin pen 1 sliding scale dose subcut USEASDIRECTD levothyroxine 137 MCG tablet 150 mcg PO DAILY Patient Comments: thyroid fenofibrate nanocrystallized 145 MG tablet 145 mg PO QHS insulin degludec [Tresiba FlexTouch U-100] 100 unit/mL (3 mL) insulin pen 42 unit SUBCUT QHS Rx Instructions: pt states fluctuates depending on bs. lisinopril 5 mg tablet 5 mg PO DAILY omeprazole magnesium [Prilosec OTC] 20 mg tablet,delayed release (DR/EC) 20 mg PO DAILY PRN (Reason: gerd) Held oxycodone-acetaminophen 5-325 mg tablet 1 tab PO TID PRN PRN (Reason: pain) Hold Instructions: Hold. Do not mix with postoperative pain medication that was provided by Dr. Savage. Hold while taking Tylenol. Other Ambulatory Orders: 12 Lead EKG (Routine) Location: None Selected Ordered By: Dr. Guevara Savage Referrals / Follow Up: Rohit Torres MD [Primary Care Provider] - Disposition Disposition (needs filled in before D/C Order can be placed): Home, Self Care
--- NOTE | 2024-10-25 13:28 | PCM.POST.ANE ---
Anesthesia: Postop Eval I Current Vital Signs Temperature: 96.4 F Pulse Rate: 71 Blood Pressure: 135/87 Respiratory Rate: 12 Pulse Ox: 100 Oxygen Delivery Method: Room Air Assessment Airway patent: Yes Spontaneous unlabored respirations: Yes Mental status: Awake nausea: No Vomiting: No Anesthesia Complication: No Fluid Hydration Crystalloid volume administer (ml): 2,300 Total IV fluid infused: 2,300 Progress Note Anesthesia document: Postop Eval 1 completed: Yes
[2024-10-25 13:42] LABS: Bedside Glucose 106 mg/dL (74-106)
--- NOTE | 2024-10-25 14:00 | RAD_ITS ---
EXAM: XR Right Hip With Pelvis When Performed, 1 View CLINICAL INDICATION: POSTOP TECHNIQUE: Frontal view of the right hip with pelvis when performed. COMPARISON: No relevant prior studies available. FINDINGS: BONES/JOINTS: Total hip replacement. Intact hardware. No acute fracture. No dislocation. SOFT TISSUES: Soft tissue emphysema and swelling. RAD/Hip Min 2 Views (Portable) IMPRESSION: Status post total hip replacement in anatomic position. Reading Location: [facility]
--- NOTE | 2024-10-25 14:13 | POSTOPAN2_ITS ---
Anesthesia Postop Eval I Sum Postop Eval Completion status Anesthesia document: Postop Eval 1 completed: Yes Anesthesia Postop Eval I Summary Anesthesia Postop Eval I Summary: Anesthesia Postop Eval I: Assessment Summary Airway patent Yes 10/25/24 13:29 [email or web address] Spontaneous unlabored Yes 10/25/24 13:29 [email or web address] respirations Mental status Awake 10/25/24 13:29 [email or web address] nausea No 10/25/24 13:29 [email or web address] Vomiting No 10/25/24 13:29 [email or web address] Anesthesia Postop Eval I: Fluid Summary Crystalloid volume administer 2,300 10/25/24 13:29 [email or web address] (ml) Colloids volume administered ( ml) Blood Product volume administered (ml) Total IV fluid infused 2,300 10/25/24 13:29 [email or web address] Anesthesia Postop Eval I: Summary Notes Anesthesia Complication No 10/25/24 13:29 [email or web address] Anesthesia Complication Comment: Post-operative progress note Anesthesia: Postop Eval II Evaluation Mental status: Awake Pain Level: 0 nausea: No Vomiting: No Complications Anesthesia Complication: No
--- NOTE | 2024-10-25 14:13 | PCM.POSTANE2 ---
Anesthesia Postop Eval I Sum Postop Eval Completion status Anesthesia document: Postop Eval 1 completed: Yes Anesthesia Postop Eval I Summary Anesthesia Postop Eval I Summary: Anesthesia Postop Eval I: Assessment Summary Airway patent Yes 10/25/24 13:29 [email or web address] Spontaneous unlabored Yes 10/25/24 13:29 DIRECTOR [email or web address] respirations Mental status Awake 10/25/24 13:29 [email or web address] nausea No 10/25/24 13:29 DIRECT[email or web address] Vomiting No 10/25/24 13:29 [email or web address] Anesthesia Postop Eval I: Fluid Summary Crystalloid volume administer 2,300 10/25/24 13:29 [email or web address] (ml) Colloids volume administered ( ml) Blood Product volume administered (ml) Total IV fluid infused 2,300 10/25/24 13:29 [email or web address] Anesthesia Postop Eval I: Summary Notes Anesthesia Complication No 10/25/24 13:29 [email or web address] Anesthesia Complication Comment: Post-operative progress note Anesthesia: Postop Eval II Evaluation Mental status: Awake Pain Level: 0 nausea: No Vomiting: No Complications Anesthesia Complication: No
[2024-10-25] MEDS: Cefazolin 2 GM in Syringe IV (16:51)
== END 2024-10-25 18:19 | disposition home or self-care (01) ==
LOC: SDC 08:58 → AC 08:59
PROVIDERS: Anesthesiology; PCP Family Medicine; Referring Provider Orthopaedic Surgery; Visit Provider Orthopaedic Surgery
PROC: 8E0Y0CZ Robotic Assisted Procedure of Lower Extremity, Open Approach (ICD-10-PCS; CPT 27130; principal; 2024-10-25 10:25)
DX: M16.11 Unilateral primary osteoarthritis, right hip (principal); E11.22 Type 2 diabetes mellitus with diabetic chronic kidney disease; N18.9 Chronic kidney disease, unspecified; K21.9 Gastro-esophageal reflux disease without esophagitis; Z87.891 Personal history of nicotine dependence; E03.9 Hypothyroidism, unspecified; E78.49 Other hyperlipidemia; I12.9 Hypertensive chronic kidney disease with stage 1 through stage 4 chronic kidney disease, or unspecified chronic kidney disease; Z79.890 Hormone replacement therapy
CPT/HCPCS: 27130; S2900; 01214; 36415; 73502; 80048; 82962; 82985; 83036; 83735; 84443; 85025; 85610; 85730; 86850; 86900; 86901; 87077; 87081; 88304; 88305; 88311; 93005; 97162; C1713; C1776; A4216; J2405; J3475

== ENCOUNTER 2024-11-24 10:00 | Outpatient (RCR) | payer MEDICARE, OTHER, SELFPAY ==
--- NOTE | 2024-11-01 08:51 | HP.PTEVAL_ITS ---
Patient's Visit Information Visit Information Visit Information: BOLIVAR ESCUDERO is a 64 year old F referred to Physical Therapy by Dr. Guevara Savage DO with a diagnosis of R SKYLA posterior/lateral approach, DOS: 10/25/24. Date of Evaluation: 10/28/24 Physical Therapist: Salvador Youngblood DPT Visit Plan Frequency: 2x /Week Duration: 6 Weeks Plan: 1) Nustep, gentle R hip ROM 2) gentle foam rolling to quads, and lateral thigh 3) gentle HS stretching and LE strengthening 4) progress to functional mobility and strengthening May use ice for pain control. Subjective Subjective: Pt. is here today for her initial evaluation with diagnosis of R SKYLA, DOS: 10/25/24, posterior lateral approach.. Pt. arrive with use of standard walker with good use. Pt. reports having increased R hip pain, but is overall doing okay. She denies N/T, no calf pain, no changes in vision or headaches. Pt. reports pain at posterior lateral aspects of her R hip. She is doing her HEP, but is having trouble with SLR and with lifting her leg into bed. Pt. has bandage in place. Pt. is doing her HEP without issues. Pt. reports increased pain with initial getting up and reports marked stiffness. Pt. is hopeful to reduce symptoms in order to get back to all recreational activities including bird watching. Pain R hip: Pain Intensity (Out of 10): 5 Pain Intensity Range: 2 and 7 Objective Objective: POSTURE: Pt. has slight wt. shift to L side in stance. She is able to correct with VCing. PALPATION: Pt. has bandage in place. Pt. has tenderness throughout R quad, glute and along lateral thigh. NEURO: Pt. has normal sensation and DTR of BLEs. Pt. is able rise on heels an toes without issues. ROM: PROM: R hip: flexion 75deg, abd 35deg, ext 0deg, ER/IR not tested. MMT: RLE: ankle 5/5 throughout, knee: ext 5-/5, flexion 5-/5. R hip: flexion 0#, abd 0#. LLE: ankle 5/5 throughout, knee: ext 5/5 throughout; knee 5/5 throughout; hip: 5/5 throughout. GAIT: Pt. ambulates with standard walker with good tolerance. Her initial steps were more antalgic, but improved with increased repetition. Pt. has reduced step length bilaterally, but not heavy use of Ad to off load RLE. STAIRS: step to pattern, loading LLE only with use of B HR. TU.9sec with standard walker 30sec sit to stand rep test: 7 with use of UEs. Balance/Special Test Scores WOMAC Total Score: 72 WOMAC Percentatge: 25.0000 Goals Goal 1:: LTG: Pt to be I with HEP. Goal Time Frame: 4-6 Weeks Goal 2:: STG: Pt. be able to complete SLR with RLE with good tolerance. Goal Time Frame: 2 Weeks Goal 3:: LTG: Pt. to have symmetrical strength of BLEs. Goal Time Frame: 6-8 Weeks Goal 4:: LTG: Pt to ambulate with normal gait pattern without use of AD. Goal Time Frame: 4-6 Weeks Goal 5:: LTG: Pt. to complete TUG without AD with time less than 10 seconds. Goal Time Frame: 6-8 Weeks Goal 6:: LTG: Pt. to complete 30sec sit to stand rep test with at least 15 reps. Goal Time Frame: 6-8 Weeks Rehabilitation Potential Physical Therapy Diagnosis: Pt. has signs and symptoms consistent with R SKYLA posterior/lateral approach, DOS: 10/25/24. Pt. has marked weakness, hypomobility, difficulty with walking and increased pain. Pt. would benefit from PT to address the above limitations progressing back to all recreational activities without issues. Rehabilitation Potential: Excellent Anticipated Interventions Patient/Client Instruction: Educate patient on: Condition, Plan of Care, Risk Factors and Benefits of Fitness Program For the Purpose of:: To improve decision making, To facilitate caregiver knowledge, To improve self management, To prevent re-injury and To improve ability to perform tasks related to life management Therapeutic Exercise to Include: Strength training, Power training, Endurance training, Coordination, Agility training, Body mechanics, Postural training, Flexibilty training, Gait and locomotor training, Passive ROM and Active ROM For the Purpose of:: To decrease pain, To increase ROM, To improve nutrient delivery to tissue, To increase oxygenation perfusion, To improve muscle performance and motor function, To improve ability to perform ADL's, To increase tolerance to activity/condition/position, To improve performance and independe nce with ADL's, To improve health of tissue, To decrease soft tissue restriction and To increase flexibility/ROM Manual Therapy Techniques to Include: Scar massage and Soft tissue mobilization For the Purpose of:: To decrease pain, To decrease swelling/inflammation, To increase ROM, To improve nutrient delivery to tissue, To increase oxygenation perfusion and To improve muscle performance and motor function Cryotherapy (ice pack, ice massage): Yes Thermo therapy (hot pack): Yes For the Purpose of:: To decrease pain, To decrease swelling/inflammation and To increase ROM Text: Thank you for the opportunity to evaluate your patient. For Medicare and Medicare HMO plans, please review the plan of care and approve it. It will need to be FAXED BACK to us at [phone] for Medicare purposes. For Medicare only, by signing this I certify the plan of care. Please let me know if there are questions or concerns regarding this plan of care. Physician Signature: __Date:
--- NOTE | 2024-11-24 12:08 | HP.PTREVAL ---
Re-Evaluation Intro: Dr. Guevara Savage, DO, It has been my pleasure to treat BOLIVAR ESCUDERO over the last 9 visits for R SKYLA posterior/lateral approach, DOS: 10/25/24. Please see the progress note below for an update on the physical therapy plan of care! Subjective Subjective: Pt. reports overall doing much better. Pt. reports 2-3/10 pain, morning are doing well, but does get more sore throughout the day. Pt. report no numbness and tingling. Objective Objective/Function: RLE: Knee: ext 25.3#, flexion 16.2#; hip: flexion 18#, abd 16# LLE: knee ext 21.8#, flexion 19.9#; hip: flexion 24, abd 19# GAIT: Pt. has soreness with initial few steps, but is relatively normal after. ROM: R hip PROM: flexion 95deg and 45deg, ext 10deg. STAIRS: Pt. is able to complete with 1 HR without issues. Pt. is a little concerned about walking for longer distances, but I talked to her that this is normal and plan to slowly increase her distances as tolerated. Pt. is to complete HEP on her own at this point in time. She is to see physician in 2 weeks. If having issues then she can come back, but otherwise she is doing great. Plan Plan Plan: Pt. to trial exercises on her own for the next 2 weeks until seeing physician. She is to continue with strengthening and complete a progressive walking program as tolerated. Balance/Gait/Functional tests Balance/Special Test Scores 30 Second Chair Rise Test Seconds: 12 WOMAC Total Score: 0 WOMAC Percentage: 100 Goals Goals Goal 1:: LTG: Pt to be I with HEP. Goal Time Frame: 4-6 Weeks Goal Progress: Goal Met Goal 2:: STG: Pt. be able to complete SLR with RLE with good tolerance. Goal Time Frame: 2 Weeks Goal Progress: Goal Met Goal 3:: LTG: Pt. to have symmetrical strength of BLEs. Goal Time Frame: 6-8 Weeks Goal Progress: Goal Met Goal 4:: LTG: Pt to ambulate with normal gait pattern without use of AD. Goal Time Frame: 4-6 Weeks Goal Progress: Goal Met Goal 5:: LTG: Pt. to complete TUG without AD with time less than 10 seconds. Goal Time Frame: 6-8 Weeks Goal Progress: Progressing Goal 6:: LTG: Pt. to complete 30sec sit to stand rep test with at least 15 reps. Goal Time Frame: 6-8 Weeks Goal Progress: Progressing Anticipated Interventions Anticipated Interventions Patient/Client Instruction: Educate patient on: Condition, Plan of Care, Risk Factors and Benefits of Fitness Program For the Purpose of:: To improve decision making, To facilitate caregiver knowledge, To improve self management, To prevent re-injury and To improve ability to perform tasks related to life management Therapeutic Exercise to Include: Strength training, Power training, Endurance training, Coordination, Agility training, Body mechanics, Postural training, Flexibilty training, Gait and locomotor training, Passive ROM and Active ROM For the Purpose of:: To decrease pain, To increase ROM, To improve nutrient delivery to tissue, To increase oxygenation perfusion, To improve muscle performance and motor function, To improve ability to perform ADL's, To increase tolerance to activity/condition/position, To improve performance and independence with ADL's, To improve health of tissue, To decrease soft tissue restriction and To increase flexibility/ROM Manual Therapy Techniques to Include: Scar massage and Soft tissue mobilization For the Purpose of:: To decrease pain, To decrease swelling/inflammation, To increase ROM, To improve nutrient delivery to tissue, To increase oxygenation perfusion and To improve muscle performance and motor function Cryotherapy (ice pack, ice massage): Yes Thermo therapy (hot pack): Yes For the Purpose of:: To decrease pain, To decrease swelling/inflammation and To increase ROM Re-Evaluation Ending Re-evaluation ending: Please do not hesitate to contact me at [phone] by phone or if you have questions or concerns regarding this new plan of care! Sincerely, Salvador Youngblood DPT
== END 2024-11-24 19:00 | disposition home or self-care (01) ==
LOC: PT 10:00
PROVIDERS: PCP Family Medicine; Referring Provider Orthopaedic Surgery; Visit Provider Orthopaedic Surgery
DX: M16.11 Unilateral primary osteoarthritis, right hip (principal); Z96.641 Presence of right artificial hip joint
CPT/HCPCS: 97110; 97161; 97530

== ENCOUNTER → 2025-05-15 | Outpatient (CLI) | payer MEDICARE, OTHER, SELFPAY | END | disposition home or self-care (01) | LOC: LABSPEC 10:26 | PROVIDERS: PCP Family Medicine; Referring Provider Nurse Practitioner Family; Visit Provider Nurse Practitioner Family | DX: R82.90 Unspecified abnormal findings in urine (principal) | CPT/HCPCS: 87077; 87086; 87088; 87186 ==